=== PATIENT | female | born 1990 | race Caucasian/White ===

== ENCOUNTER → 2018-10-14 18:20 | Outpatient (CLI) | payer MEDICAID, SELFPAY ==
[2018-10-14 16:00] VITALS: BMI 27.1
[2018-10-14 18:11] LABS: Absolute Lymphocyte Count 1.99 X10^3/ul (0.83-4.51); Absolute Neutrophil Count 5.9 X10^3/uL (2.0-7.7); Basophil# 0.02 X10^3/uL; Basophil% 0.2 % (0-1); Eosinophil# 0.05 X10^3/uL; Eosinophils% 0.6 % (0-5); Hematocrit 41.4 % (37-47); Hemoglobin 13.9 g/dl (12.0-15.0); Lymphocyte # 1.99 X10^3/ul (4.0); Lymphocyte % 22.6 % (19-41); Mean Corp Hgb Conc 33.6 g/gl (32-36); Mean Corpuscular Hgb 28.5 pg (27.0-32.0); Mean Platelet Vol. 10.2 fl (6.2-12.0); Monocyte# 0.81 X10^3/uL; Monocyte% 9.2 % (0-10); Neutrophil # 5.92 X10^3/uL (2.7-7.7); Neutrophil % 67.1 % (47-70); Platelet Count 202 K/mm3 (150-450); RBC Distribution Width CV 12.4 % (11.6-14.6); RBC Distribution Width SD 38.1 fl (35.1-43.9); Red Blood Count 4.87 M/mm3 (4.2-5.4); White Blood Count 8.8 K/mm3 (4.4-11.0)
[2018-10-14 18:14] LABS: POSITIVE COUNT NO; POSITIVE DIFFERENTIAL NO; POSITIVE MORPHOLOGY NO
[2018-10-14 19:21] LABS: HIV - WCH Non-Reactive (Nonreactive); Rubella IgG > 500.0 IU/mL
[2018-10-14 20:04] LABS: Chlamydia Trachomatis by PCR Negative (Negative); Neisserai gonorrhoeae by PCR Negative (Negative); Probe Check PASS; Sample Adequacy Control PASS; Specimen Processing Control PASS
[2018-10-15 01:32] LABS: Rapid Plasmin Reagin (RPR) NONREACTIVE (NONREACTIVE)
[2018-10-18 11:40] LABS: HEPATITIS B SURFACE AG Negative (Negative)
== END ==
PROVIDERS: Referring Provider Obstetrics & Gynecology; Visit Provider Obstetrics & Gynecology
DX: Z31.430 Encounter of female for testing for genetic disease carrier status for procreative management (principal)
CPT/HCPCS: 85025; 86592; 86703; 86762; 86850; 86900; 87086; 87340; 87491; 87591

== ENCOUNTER → 2018-11-12 16:30 | Outpatient (CLI) | payer MEDICAID, SELFPAY ==
[2018-11-12 15:47] VITALS: BMI 27.1
[2018-11-12 19:43] LABS: Chlamydia Trachomatis by PCR Negative (Negative); Neisserai gonorrhoeae by PCR Negative (Negative); Probe Check PASS; Sample Adequacy Control PASS; Specimen Processing Control PASS
== END ==
PROVIDERS: Referring Provider Obstetrics & Gynecology; Visit Provider Obstetrics & Gynecology
DX: O09.90 Supervision of high risk pregnancy, unspecified, unspecified trimester (principal); Z3A.00 Weeks of gestation of pregnancy not specified
CPT/HCPCS: 87491; 87591

== ENCOUNTER → 2018-11-15 | Outpatient (CLI) | payer MEDICAID, SELFPAY ==
[2018-11-12 15:47] VITALS: BMI 27.1
== END | disposition home or self-care (01) ==
LOC: LAB 14:57
PROVIDERS: Referring Provider Obstetrics & Gynecology; Visit Provider Obstetrics & Gynecology
DX: Z34.81 Encounter for supervision of other normal pregnancy, first trimester (principal)
CPT/HCPCS: 36415

== ENCOUNTER → 2019-03-01 | Outpatient (CLI) | payer MEDICAID, SELFPAY ==
[2019-02-01 14:33] VITALS: BMI 27.1
[2019-03-01 09:41] LABS: Absolute Lymphocyte Count 1.64 X10^3/uL (0.83-4.51); Absolute Neutrophil Count 6.3 X10^3/uL (2.0-7.7); Basophil# 0.02 X10^3/uL; Basophil% 0.2 % (0-1); Eosinophil# 0.04 X10^3/uL; Eosinophils% 0.5 % (0-5); Hematocrit 35.5 % (37-47); Hemoglobin 11.9 g/dL (12.0-15.0); Lymphocyte # 1.64 X10^3/ul (4.0); Lymphocyte % 18.9 % (19-41); Mean Corp Hgb Conc 33.5 g/dL (32-36); Mean Corpuscular Hgb 29.5 pg (27.0-32.0); Mean Corpuscular Volume 87.9 fL (81-99); Mean Platelet Vol. 10.1 fl (6.2-12.0); Monocyte# 0.55 X10^3/uL; Monocyte% 6.3 % (0-10); NRBC Flagged by Analyzer 0 % (0-5); Neutrophil # 6.26 X10^3/uL (2.7-7.7); Neutrophil % 72.1 % (47-70); Platelet Count 169 K/mm3 (150-450); RBC Distribution Width CV 12.3 % (11.6-14.6); RBC Distribution Width SD 39.8 fl (35.1-43.9); Red Blood Count 4.04 M/mm3 (4.2-5.4); White Blood Count 8.7 K/mm3 (4.4-11.0)
[2019-03-01 09:53] LABS: Glucose Challenge Gest 1H 50g 104 mg/dL (70-140)
== END | disposition home or self-care (01) ==
LOC: PAVLAB 09:15
PROVIDERS: Referring Provider Obstetrics & Gynecology; Visit Provider Obstetrics & Gynecology
DX: Z34.90 Encounter for supervision of normal pregnancy, unspecified, unspecified trimester (principal)
CPT/HCPCS: 36415; 82950; 85025

== ENCOUNTER → 2019-04-28 | Outpatient (CLI) | payer MEDICAID, SELFPAY ==
[2019-04-20 09:44] VITALS: BMI 30.8
--- NOTE | 2019-04-28 08:58 | US_ITS ---
STUDY: SECOND AND THIRD TRIMESTER OBSTETRICAL ULTRASOUND REASON FOR EXAM: Female, 28 years old small for dates. LMP not provided. Established gestational age 35 weeks 4 days, established due date is 05/29/2019. TECHNIQUE: Transabdominal ultrasound. TECHNICAL QUALITY: Adequate. PRIOR ULTRASOUND: None. FINDINGS: There is a single intrauterine fetus. The fetus is in a cephalic presentation. There is demonstrated cardiac activity with a heart rate of 143 bpm. There is a normal amniotic fluid volume. The largest amniotic fluid pocket measures 4.6 cm. The amniotic fluid index (PILY) is 11.8 cm. The placenta is posterior, no evidence of previa or abruption. There are Grade 2 placental changes. The cervix was not visualized. Neither maternal adnexal region was well visualized. BIOMETRY: BPD: 8.55: 34 weeks, 3 days HC: 31.56: 35 weeks, 3 days AC: 31.03: 34 weeks, 6 days FL: 6.63: 34 weeks, 0 days FL/BPD: 77.5% FL/AC: 21.4% HC/AC: 1.02 age by current US: 34 weeks, 4 days, PRIYA 06/05/2019. US/OB Limited With Biometrics IMPRESSION: Single fetus in cephalic presentation with no acute findings. age based on this ultrasound 34 weeks 4 days. Electronically Signed: Jovanny Flores, at 20:49 EDT Tel , Service support ,
== END | disposition home or self-care (01) ==
LOC: OPUS 08:57
PROVIDERS: Referring Provider Obstetrics & Gynecology; Visit Provider Obstetrics & Gynecology
DX: O26.843 Uterine size-date discrepancy, third trimester (principal); Z3A.00 Weeks of gestation of pregnancy not specified
CPT/HCPCS: 76816

== ENCOUNTER → 2019-05-03 | Outpatient (CLI) | payer MEDICAID, SELFPAY ==
[2019-05-03 09:39] VITALS: BMI 30.8
== END | disposition home or self-care (01) ==
LOC: LABSPEC 18:14
PROVIDERS: Visit Provider Obstetrics & Gynecology
DX: Z34.93 Encounter for supervision of normal pregnancy, unspecified, third trimester (principal); Z3A.36 36 weeks gestation of pregnancy
CPT/HCPCS: 87081

== ENCOUNTER 2019-05-27 02:52 | Inpatient (IN) | payer MEDICAID, SELFPAY ==
[2019-05-23 08:32] VITALS: BMI 30.8
--- NOTE | 2019-05-27 | PLAC_PTH ---
PATIENT: THAIS MADDEN LOC: WP U#:[id number] AGE/SX: 28/F ROOM: WP010 RE05/27/[address]: Dr. Fawad Saldana MD : 1990 BED: 1 DIS: 05/29/2019 SPEC #: [id number] RECD: 05/27/19 18:12 STATUS: JOHN RERobert #: [id number] VERÓNICA: 05/27/19 00:[address]: Fawad Saldana DEPT: SURGICAL PATHOLOGY RECD BY: Michelle Loomis ENTERED: 05/29/19 17:13 SP TYPE: PLACENTA OTHR DR: Dr. Kristin Yu, DO Tissues: Placenta, NOS Procedures: Surgery Specimen Level V HEADER OPERATION: Vaginal delivery PRE-OP DIAGNOSIS: Robert of temperature before delivery, meconium stained membranes TISSUE SUBMITTED: Placenta MICROSCOPIC DIAGNOSIS Placenta: Placental disc - third trimester placenta (508 gm). - Acute vasculitis of subamnionic blood vessels. - Increased calcification of maternal surface. Membranes - marked acute chorioamnionitis. Umbilical cord - three blood vessels and marked acute funisitis. OMER:maikel 05/31/19 MICROSCOPIC DESCRIPTION Slides are reviewed. GROSS DESCRIPTION SPECIMEN: PLACENTA / CLINICAL INFORMATION: A. Weight: 2.837 kg B. Gestational Age: 39 weeks C. Sex: Female PLACENTAL WEIGHT (POST FIXATION): 508 gm PLACENTAL DIMENSIONS: 18 x 18 x 3 cm PLACENTAL SHAPE: Usual ovoid PLACENTAL WEIGHT FOR GESTATIONAL AGE: Within 10-99th percentile MEMBRANES - Present A. Insertion: Marginal B. Site of rupture from edge: 3 cm from edge of placental disc C. Color of membrane: Key-izaguirre D. Abnormalities: None UMBILICAL CORD - Present A. Color: Key-izaguirre B. Insertion: Paracentral C. Length: 24 cm D. Diameter: 1 cm E. Number of vessels: Three F. Abnormalities: None PLACENTAL DISC - Present A. Color of surface: Key-izaguirre B. surface abnormalities: None C. Maternal cotyledons: Intact with minimal tears. Maternal surface shows increased amount of speckled calcification. D. Attached retro placental clot: No clot E. Cut surface: Dark red and spongy F. Lesions: None G. Separate clot: Absent SECTIONS SUBMITTED: 1. Membrane roll 2. Cord, maternal end 3. Cord, end 4. Placental disc, and maternal surfaces 5. Placental disc, and maternal surfaces 6. Placental disc, and maternal surfaces SJ:maikel 05/30/19 TC:2 CPT: 53154
[2019-05-27 02:40] VITALS: BMI 30.1
[2019-05-27 03:03] LABS: ROM Internal Control Test YES-OK TO RESULT pt. (Internal QC); ROM Patient Test Negative (Negative); Record Kit Lot#, ROM+ J8255
[2019-05-27] MEDS: Lactated Ringers 1,000 ML 50 ML IV (03:15)
[2019-05-27 03:32] LABS: Absolute Lymphocyte Count 1.54 X10^3/uL (0.83-4.51); Absolute Neutrophil Count 15.3 X10^3/uL (2.0-7.7); Basophil# 0.05 X10^3/uL; Basophil% 0.3 % (0-1); Eosinophil# 0.03 X10^3/uL; Eosinophils% 0.2 % (0-5); Hematocrit 38.7 % (37-47); Hemoglobin 13.2 g/dL (12.0-15.0); Lymphocyte # 1.54 X10^3/ul (4.0); Lymphocyte % 8.4 % (19-41); Mean Corp Hgb Conc 34.1 g/dL (32-36); Mean Corpuscular Volume 85.1 fL (81-99); Monocyte# 1.15 X10^3/uL; Monocyte% 6.3 % (0-10); NRBC Flagged by Analyzer 0 % (0-5); Neutrophil # 15.29 X10^3/uL (2.7-7.7); Neutrophil % 83.6 % (47-70); POSITIVE COUNT YES; Platelet Count 158 K/mm3 (150-450); RBC Distribution Width CV 12.9 % (11.6-14.6); RBC Distribution Width SD 39.6 fl (35.1-43.9); Red Blood Count 4.55 M/mm3 (4.2-5.4); White Blood Count 18.3 K/mm3 (4.4-11.0)
[2019-05-27] MEDS: Lactated Ringers 500 ML 999 ML IV ×2 (03:52→08:58)
[2019-05-27 04:08] LABS: Differential Indicated SCAN CRITERIA MET
[2019-05-27] MEDS: Nalbuphine 10 MG/ML Ampul IV ×2 (04:53→07:57)
[2019-05-27] MEDS: 0.9% Saline Lock 10 ML Syringe IV ×2 (04:54→20:36)
[2019-05-27] MEDS: fentaNYL-bupivacaine (epidural) 100 ML BAG EPIDURAL ×2 (09:48→14:52)
--- NOTE | 2019-05-27 10:39 | HP.PCM_ITS ---
History and Physical Date of Ad[place]: 05[place]27/[place] [facility] [facility] [place] AND PHYSICAL (05/27/2019) History of This : This is a 28-year-old 1 para 0 patient who presents in active labor 39+ weeks gestation. care unremarkable except for a prior LEEP procedure to her cervix. Patient also has a history of bartholinitis. She would like an epidural in labor and for dad to cut the cord. She does plan to breast-feed. OB Physician: eKila Copeland [place]'s Physician: ...................................................................... : 1990 Age: 28 Final PRIYA: 06/05/2019 PARITY: OB PROBLEM LIST: History of LEEP procedure ALLERGIES: NKDA MEDICATIONS: vitamins SOCIAL HISTORY: Smoking -never Alcohol Use - never Diet - no special diet Exercise - active Job Description -manages rental properties Illicit Drug Use - None REVIEW OF SYSTEMS: GENERAL - Denies fever, or chills SKIN - Denies rash, new skin lesions, or change in moles EYES - Denies blurred vision, or change in visual acuity EARS - Denies ear pain, or difficulty hearing NOSE - Denies nasal congestion, discharge, or bleeding MOUTH - Denies sore throat, or difficulty swallowing NECK - Denies pain or swelling RESPIRATORY - Denies shortness of breath, cough, wheezing CARDIOVASCULAR - Denies palpitations, chest pain, orthopnea, PND, peripheral edema, syncope or claudication GASTROINTESTINAL - Denies nausea, vomiting, diarrhea, constipation, Denies abdominal pain, melena and or bright red blood GENITOURINARY - Denies dysuria, frequency of urination, urgency, or hesitancy MUSCULOSKELETAL - Denies joint or muscle pain, or back pain NEUROLOGICAL - Denies localized numbness, weakness, or tingling PSYCHIATRIC - Denies depression, anxiety, substance abuse or suicide attempts ENDOCRINE - Denies heat or cold intolerance, weight loss or gain, increasing thirst HEMATO-IMMUNOLOGIC - Denies easy bruising, bleeding, oral ulcerations or recurrent infections PHYSICAL EXAMINATION General Appearance: 28 yo female in no acute distress Vital Signs: AF, VSS Heart: RRR without rubs or gallops Lungs: CTA x 2 Breasts: deferred Abdomen: gravid Pelvis: Cervix: 4 cm, rupture membrane shows moderate meconium staining Presentation: cephalic Station: -2 Fetus: Size: AGA Movement: present Heart: present Impression /Plan: 39+ week intrauterine in active labor. Anticipate spontaneous vaginal delivery. Preparations in progress for delivery.
[2019-05-27] MEDS: Oxytocin 30 units/NS 500 ml 30 UNITS/500 ML IV.SOLN IV (11:00)
[2019-05-27] MEDS: Lactated Ringers 1,000 ML 200 ML IV (13:44)
[2019-05-27] MEDS: Oxytocin 30 units/NS 500 ml 30 UNITS/500 ML IV.SOLN 334 UNITS IV (16:40)
--- NOTE | 2019-05-27 17:05 | PCM.OPRPT ---
Vaginal Delivery Maternal Presentation: Active Labor Method of Induction: Amniotomy Amniotic Membrane Rupture Type: Artificial Amniotic Fluid Description: Moderate meconium Final PRIYA: 06/05/19 Gestational age: 38 Weeks and 5 Days [place] doctor who attended delivery (if requested by OB): Luciana Hope - Moderate MSF; Maternal fever Date of Procedure: 05/27/19 Pre-Operative Diagnosis: IUP Post-Operative Diagnosis: IUP Surgery/ Procedure Performed: Spontaneous Vaginal Delivery Type of Anesthesia: Epidural Description of Procedure: Spontaneous vaginal delivery of a viable female with Apgars of 8/9 from an occiput anterior presentation with clear amniotic fluid and normal three-vessel placenta. Cord around the neck x1 tight. No episiotomy or laceration. Sponges okay. Delivery physician: Fawad Saldana MD. Presentation: Vertex Placental Delivery Description: Spontaneous Placenta Disposition: Sent to Pathology Cord Vessel Description: 3 Vessels Cord Gases drawn per routine: ABG, VBG Cord Entanglement: Around neck x 1, tight Drain: [place] to straight drain Estimated Blood Loss: 250 cc Infant A gender: Female (1 minute): 8 (5 minute): 9 Episiotomy Description: None Laceration: None Medications given after delivery: IV Pitocin Complications: None
--- NOTE | 2019-05-27 17:08 | DCINST_ITS ---
Discharge Diet: No Restrictions Discharge Activity: May Shower, May Take a Tub Bath May resume sexual activity in: 4-6 weeks Additional Activity Instructions:: Nothing in the vagina for 4-6 weeks. You may return to work/school in 6 weeks. Call your doctor if you observe: Fever of 101 or Higher, Inability to urinate, Inability to have a bowel movement, Using more than one pad per hour Additional Instructions: If you experience any of the following, contact your healthcare provider. * Bleeding that soaks a pad every hour for 2 hours * Unrelieved incision or abdominal pain * Swelling, redness, discharge or bleeding from your incision or episiotomy site * Your incision begins to separate * Problems urinating (including inability to urinate or burning while urinating). * Visual changes * Severe headache * Flu-like symptoms * Pain or redness in one of both of your breasts * Pain, warmth, tenderness or swelling in your legs, especially the calf area * Frequent nausea and vomiting * Symptoms of depression or anxiety If you experience any of the following, call 911 or go to the nearest Emergency Room. * Chest pain * Problems breathing * Seizure activity * Partial or complete paralysis of a body part, slurred speech, weakness or drooping of the face, or a sudden inability to walk or hold your balance Allergies/Adverse Reactions: Allergies No Known Allergies Allergy (Verified 05/27/19 03:11) Medications to take at Discharge vitamin#30 30 mg iron-10 mg iron-folic acid 1 mg-omg3 capsule 1 cap PO DAILY cap 10/14/18 Please Follow Up With: Bree Copeland MD - [phone] When: Call to make an appointment with your doctor in 6 weeks. Primary Care Physician: Kristin Yu DO [Primary Care Provider] - Test Results: Test results from this visit will be discussed in further detail at your follow- up appointment, if applicable.
--- NOTE | 2019-05-27 17:08 | PCM.DCVAG ---
Discharge Diet: No Restrictions Discharge Activity: May Shower, May Take a Tub Bath May resume sexual activity in: 4-6 weeks Additional Activity Instructions:: Nothing in the vagina for 4-6 weeks. You may return to work/school in 6 weeks. Call your doctor if you observe: Fever of 101 or Higher, Inability to urinate, Inability to have a bowel movement, Using more than one pad per hour Additional Instructions: If you experience any of the following, contact your healthcare provider. Bleeding that soaks a pad every hour for 2 hours Unrelieved incision or abdominal pain Swelling, redness, discharge or bleeding from your incision or episiotomy site Your incision begins to separate Problems urinating (including inability to urinate or burning while urinating). Visual changes Severe headache Flu-like symptoms Pain or redness in one of both of your breasts Pain, warmth, tenderness or swelling in your legs, especially the calf area Frequent nausea and vomiting Symptoms of depression or anxiety If you experience any of the following, call 911 or go to the nearest Emergency Room. Chest pain Problems breathing Seizure activity Partial or complete paralysis of a body part, slurred speech, weakness or drooping of the face, or a sudden inability to walk or hold your balance Allergies/Adverse Reactions: Allergies No Known Allergies Allergy (Verified 05/27/19 03:11) Medications to take at Discharge vitamin#30 30 mg iron-10 mg iron-folic acid 1 mg-omg3 capsule 1 cap PO DAILY cap 10/14/18 Please Follow Up With: Bree Copeland MD - [phone] When: Call to make an appointment with your doctor in 6 weeks. Primary Care Physician: Kristin Yu DO [Primary Care Provider] - Test Results: Test results from this visit will be discussed in further detail at your follow-up appointment, if applicable.
--- NOTE | 2019-05-27 17:31 | PN.OBGYN_ITS ---
Subjective: Patient with continued temperature elevation greater than 101 ?F more than 30 minutes after delivery. Tylenol given. Will start ampicillin and gentamicin for presumed chorioamnionitis. - Physical Exam Weight: 181 lb Body Mass Index (BMI) 30.1 Intake and Output for Last 24 Hours 05/25/19 05/26/19 05/27/19 23:59 23:59 23:59 Intake Total 3000.00 / 3000.00 Output Total 1300 / 1300 Balance 1700.00 / 1700.00 Laboratory Tests Past 24 Hrs 05/27/19 05/27/19 05/27/19 02:30 03:15 03:15 WBC 18.3 H RBC 4.55 Hgb 13.2 Hct 38.7 MCV 85.1 MCH 29.0 MCHC 34.1 RDW Std Deviation 39.6 RDW Coeff of Karthik 12.9 Plt Count 158 MPV 12.0 Immature Gran % (Auto) 1.200 H Neut % (Auto) 83.6 H Lymph % (Auto) 8.4 L [place] % (Auto) 6.3 Eos % (Auto) 0.2 Baso % (Auto) 0.3 Absolute Neuts (auto) 15.3 H Absolute Lymphs (auto) 1.54 Nucleated RBC % 0 Differential Comment Vag Amniotic Fld Detect Negative Blood Type A POSITIVE Antibody Screen NEGATIVE Medical Necessity - Tobacco Use Smoking Status: Never smoker Assessment/Plan All Active Problems (Last Updated 05/27/19 @ 17:09 by Fawad Saldana MD) Acute appendicitis (Resolved) Low lying placenta nos or without hemorrhage, second trimester (Resolved) Uterine size-date discrepancy, third trimester (Resolved)
[2019-05-27] MEDS: Acetaminophen 500 MG Tablet 1000 MG PO (17:51)
[2019-05-27 20:09] VITALS: BP 116/65; PULSE 93; RESP 20; TEMP 36.6; O2SAT 96
[2019-05-27] MEDS: Ibuprofen 600 MG Tablet PO (20:48)
[2019-05-28 00:21] VITALS: BP 116/58; PULSE 79; RESP 18; TEMP 36.2; O2SAT 95
[2019-05-28] MEDS: 0.9% Saline Lock 10 ML Syringe IV ×5 (00:30→06:47)
[2019-05-28 03:54] VITALS: BP 103/48; PULSE 78; RESP 18; TEMP 36.7
[2019-05-28 05:18] LABS: Hematocrit 33.9 % (37-47); Hemoglobin 11.3 g/dL (12.0-15.0); Mean Corp Hgb Conc 33.3 g/dL (32-36); Mean Corpuscular Hgb 28.7 pg (27.0-32.0); Mean Platelet Vol. 10.8 fl (6.2-12.0); Platelet Count 136 K/mm3 (150-450); RBC Distribution Width SD 40.6 fl (35.1-43.9); Red Blood Count 3.94 M/mm3 (4.2-5.4)
[2019-05-28 10:00] VITALS: BP 117/67; PULSE 75; RESP 18; TEMP 36.3
--- NOTE | 2019-05-28 11:46 | PCM.PN.OB ---
Subjective: Pain well controlled, tolerating diet, passing flatus, well Objective: AVSS Breasts filling, nipples atraumatic Fundus firm, midline, u/1, lochia small - Physical Exam General: Alert, Oriented x3, Cooperative, No apparent distress HEENT: PERRLA, EOMI Oral: Moist Mucosa Neck: Supple Lungs: Clear to auscultation, Normal air movement Cardiovascular: Regular rate, Regular Rhythm Abdomen: Bowel Sounds Present, Soft, Non Tender, Non-Distended Extremities: Capillary Refill Less than 3 Seconds, No Calf Tenderness Musculoskeletal: No Tenderness to Palpation of Joints or Extremities Neurological: Cranial nerves II-XII grossly intact, Deep Tendon Reflexes 2+/4 and Symmetrical Psych/Mental Status: Normal Affect, Appropriate, Alert and oriented to time, place, person, mood and affect Vital Signs Temp Pulse Resp BP Pulse Ox 98.1 F 78 18 103/48 L 95 05/28/19 03:54 05/28/19 03:54 05/28/19 03:54 05/28/19 03:54 05/28/19 00:21 Oxygen Delivery Method Room Air Weight: 181 lb Body Mass Index (BMI) 30.1 Intake and Output for Last 24 Hours 05/26/19 05/27/19 05/28/19 23:59 23:59 23:59 Intake Total 4663.50 / 4663.50 253 / 253 Output Total 1475 / 1475 1650 / 1650 Balance 3188.50 / 3188.50 -1397 / -1397 Laboratory Tests Past 24 Hrs 05/28/19 05:15 WBC 22.0 H RBC 3.94 L Hgb 11.3 L Hct 33.9 L MCV 86.0 MCH 28.7 MCHC 33.3 RDW Std Deviation 40.6 RDW Coeff of Karthik 13.0 Plt Count 136 L MPV 10.8 Medical Necessity - Tobacco Use Smoking Status: Never smoker Assessment/Plan All Active Problems (Last Updated 05/27/19 @ 17:09 by Fawad Saldana MD) Acute appendicitis (Resolved) Low lying placenta nos or without hemorrhage, second trimester (Resolved) Uterine size-date discrepancy, third trimester (Resolved) Assessment: 28yo G1 mow P1 at 39w5d by L=12w1d US Group B negative Chorioamnionitis Normal involution Afebrile x 24 hours Plan: Discharge teaching begun Discontinue antibiotics Continue routine care
[2019-05-28 14:00] VITALS: BP 111/69; PULSE 73; RESP 16; TEMP 36.4
[2019-05-28] MEDS: Ibuprofen 600 MG Tablet PO (19:19)
[2019-05-28 19:36] VITALS: BP 96/60; PULSE 73; RESP 16; TEMP 36.6; O2SAT 94
[2019-05-29 01:23] VITALS: BP 110/68; PULSE 76; RESP 18; TEMP 36.9; O2SAT 96
[2019-05-29 06:35] LABS: Pathology Specimen OB SEE PATHOLOGY REPORT
[2019-05-29 09:05] VITALS: BP 114/68; PULSE 84; RESP 14; TEMP 36.4
--- NOTE | 2019-05-29 09:18 | PCM.PN.OB ---
Subjective: doing well no complaints pain controlled no CP SOB N V ambulating well tolerating po lochia moderate, going well - Physical Exam General: Alert, Oriented x3 Abdomen: Soft, Non Tender, Non-Distended, - - FF below U Vital Signs Temp Pulse Resp BP Pulse Ox 97.6 F L 84 14 114/68 96 05/29/19 09:05 05/29/19 09:05 05/29/19 09:05 05/29/19 09:05 05/29/19 01:23 Oxygen Delivery Method Room Air Weight: 181 lb Body Mass Index (BMI) 30.1 Intake and Output for Last 24 Hours 05/27/19 05/28/19 05/29/19 23:59 23:59 23:59 Intake Total 4663.50 / 4663.50 253 / 253 Output Total 1475 / 1475 2049 / 2049 Balance 3188.50 / 3188.50 -1797 / -1797 Medical Necessity - Tobacco Use Smoking Status: Never smoker Assessment/Plan All Active Problems (Last Updated 05/27/19 @ 17:09 by Fawad Saldana MD) Acute appendicitis (Resolved) Low lying placenta nos or without hemorrhage, second trimester (Resolved) Uterine size-date discrepancy, third trimester (Resolved) s/p PPD # 1 1. routine post delivery care 2. breast feeding- support given 3. rh positive 4. rubella immune 5. HOme today
== END 2019-05-29 10:05 | disposition home or self-care (01) | DRG 560 ==
LOC: WPOUT 02:59
PROVIDERS: Admitting Provider Obstetrics & Gynecology; Referring Provider Obstetrics & Gynecology; Visit Provider Obstetrics & Gynecology
DX: O77.0 Labor and delivery complicated by meconium in amniotic fluid (principal); Z3A.39 39 weeks gestation of pregnancy; Z37.0 Single live birth
CPT/HCPCS: 59025; 59050; 84112; 85025; 85027; 86850; 86900; 86901; 88307; 99218; J7120; A4216; G0378

== ENCOUNTER → 2019-07-11 15:44 | Outpatient (CLI) | payer MEDICAID, SELFPAY ==
[2019-07-11 13:49] VITALS: BMI 30.1
[2019-07-14 11:31] LABS: HPV Reflexed? NOT INDICATED
== END ==
PROVIDERS: Referring Provider Obstetrics & Gynecology; Visit Provider Obstetrics & Gynecology
DX: Z12.4 Encounter for screening for malignant neoplasm of cervix (principal)
CPT/HCPCS: 88175; G0145

== ENCOUNTER → 2019-09-23 | Outpatient (CLI) | payer MEDICAID, SELFPAY ==
[2019-09-23 10:35] VITALS: BMI 28.3
[2019-09-23 13:04] LABS: Amphetamine Urine VISTA NEGATIVE (<1000 ng/mL); Barbiturate Urine VISTA NEGATIVE (< 200 ng/mL); Benzodiazepine Urine VISTA NEGATIVE (< 200 ng/mL); Cocaine Urine VISTA NEGATIVE (< 300 ng/mL); Ecstacy Urine VISTA NEGATIVE (< 500 ng/mL); Methadone Urine VISTA NEGATIVE (< 300 ng/mL); PCP Urine VISTA NEGATIVE (< 25 ng/mL); THC Urine VISTA NEGATIVE (< 50 ng/mL); Vista UDS pH Range 5
== END | disposition home or self-care (01) ==
LOC: BIMLAB 11:00
PROVIDERS: PCP Internal Medicine; Referring Provider Internal Medicine; Visit Provider Internal Medicine
DX: F90.9 Attention-deficit hyperactivity disorder, unspecified type (principal)
CPT/HCPCS: 80307

== ENCOUNTER → 2019-09-27 | Outpatient (CLI) | payer MEDICAID, SELFPAY ==
[2019-09-23 10:35] VITALS: BMI 28.3
--- NOTE | 2019-09-27 14:00 | RAD_ITS ---
STUDY: X-RAY - PELVIS AND RIGHT HIP REASON FOR EXAM: Female, 29 years old. Pain since child 4 months ago TECHNIQUE: 3 views of the pelvis and hip. COMPARISON: None. FINDINGS: There is a non-specific bowel gas pattern. Normal visualized soft tissue structures. Normal bilateral iliac wings, sacroiliac joints and visualized sacrum. Normal bilateral superior and inferior pubic rami. Normal pubic symphysis. Normal bilateral ischial tuberosities. Normal visualized femoral head. Normal acetabulum. Normal hip joint. RAD/HIP, UNI W/ Pelvis 2-3 Views IMPRESSION: Normal x-ray examination of the pelvis and hip. Electronically Signed: Paola Dave, at 8:02 EST Tel , Service support ,
== END | disposition home or self-care (01) ==
LOC: RAD 13:57
PROVIDERS: PCP Internal Medicine; Referring Provider Internal Medicine; Visit Provider Internal Medicine
DX: M25.551 Pain in right hip (principal)
CPT/HCPCS: 73502

== ENCOUNTER → 2020-01-27 09:57 | Outpatient (CLI) | payer MEDICAID, SELFPAY ==
[2019-12-19 13:11] VITALS: BMI 28.3
--- NOTE | 2020-01-27 10:05 | RAD_ITS ---
CLINICAL HISTORY: Female, 29 years old. Chronic right hip pain. PROCEDURE: ARTHROGRAM - RIGHT HIP CONSENT: The procedure as well as benefits and possible complications including bleeding and infection were explained to the patient. Informed consent was obtained. FLUOROSCOPY TIME (if supplied): (30 seconds) minutes/seconds. Single image was obtained. Injection Information: 10 cc of dilute Magnevist. Number of images obtained: 1 TECHNIQUE: (All elements of maximal sterile barrier technique followed, including US elements as applicable) The patient was in the supine position. The overlying skin was prepped and draped in usual sterile fashion. Following local anesthetic complication and under direct fluoroscopic guidance, a 22-gauge spinal needle was placed into the hip joint. 2 cc of Isovue-300 was injected for confirmation. Following this, 10 cc of dilute Magnevist was injected. RAD/Arthrogram Hip IMPRESSION: Successful right hip arthrogram for MRI examination. Electronically Signed: Be Gonzales, at 11:10 EDT , Service support ,
--- NOTE | 2020-01-27 10:45 | MRI_ITS ---
STUDY: MR RIGHT HIP ARTHROGRAPHY REASON FOR EXAM: Pain and instability for 8 months. TECHNIQUE: Standardized fat and water weighted pulse sequences were obtained in all 3 orthogonal planes after intra-articular instillation of 0.8 mL of dilute Dotarem. COMPARISON: Radiographs 09/27/2019. FINDINGS: Normal hip joint without articular joint space narrowing. Normal acetabulum. There is a tear of the right superior labrum (T1 coronal images 11-13) and a small tear of the anterosuperior labrum (GURPREET image 9). There is a femoral cam lesion (T1 coronal image 10). Normal femoral neck and intratrochanteric region. Normal gluteus minimus, medius and iliopsoas tendons and distal insertions. There is no trochanteric, iliopsoas or iliopectineal bursitis. Normal superior and inferior pubic rami. Normal pubic symphysis. Normal ischial tuberosity. Normal origin of the hamstring tendons. Normal visualized soft tissue structures of the pelvis. MRI/Lower Ext/Jt Only/W Contrast IMPRESSION: Labral tear. 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 Electronically Signed: Eduardo Marin MD at 13:00 EDT Tel , Service support ,
== END ==
PROVIDERS: PCP Internal Medicine; Referring Provider Physician Assistant; Visit Provider Physician Assistant
DX: M25.551 Pain in right hip (principal); G89.29 Other chronic pain
CPT/HCPCS: 27093; 73525; 73722; A9575; Q9967

== ENCOUNTER → 2020-03-19 09:51 | Outpatient (CLI) | payer MEDICAID, SELFPAY ==
[2020-03-19 09:36] VITALS: BMI 28.3
[2020-03-19 12:34] LABS: Absolute Lymphocyte Count 1.87 X10^3/uL (0.83-4.51); Absolute Neutrophil Count 3.2 X10^3/uL (2.0-7.7); Basophil# 0.02 X10^3/uL; Basophil% 0.4 % (0-1); Eosinophil# 0.04 X10^3/uL; Eosinophils% 0.7 % (0-5); Hematocrit 41.6 % (37-47); Hemoglobin 13.6 g/dL (12.0-15.0); Lymphocyte # 1.87 X10^3/ul (4.0); Lymphocyte % 34.1 % (19-41); Mean Corp Hgb Conc 32.7 g/dL (32-36); Mean Corpuscular Hgb 28.2 pg (27.0-32.0); Mean Corpuscular Volume 86.1 fL (81-99); Mean Platelet Vol. 10.5 fl (6.2-12.0); Monocyte# 0.37 X10^3/uL; Monocyte% 6.7 % (0-10); NRBC Flagged by Analyzer 0 % (0-5); Neutrophil # 3.15 X10^3/uL (2.7-7.7); Neutrophil % 57.4 % (47-70); Platelet Count 208 K/mm3 (150-450); RBC Distribution Width CV 11.3 % (11.6-14.6); RBC Distribution Width SD 35.5 fl (35.1-43.9); Red Blood Count 4.83 M/mm3 (4.2-5.4); White Blood Count 5.5 K/mm3 (4.4-11.0)
[2020-03-19 12:47] LABS: AST(SGOT) 13 U/L (15-37); Alanine Aminotransfer ALT/SGPT 26 U/L (13-56); Albumin, Serum 3.8 g/dL (3.2-5.0); Alkaline Phosphatase 51 U/L (45-117); Anion Gap 7 (5-15); BUN 12 mg/dL (7-18); BUN/Creat Ratio 15.8 RATIO (10-20); Calcium,Total 8.8 mg/dL (8.5-10.1); Chloride 105 mmol/L (98-107); Creatinine, Serum 0.76 mg/dL (0.55-1.02); EST Glomerular Filtration Rate 96 mL/min (>60); Est Glom Filt Rate - Afr Amer 116 mL/min (>60); Globulin 3.7 g/dL (2.2-4.2); Glucose 87 mg/dL (74-106); Potassium 3.9 mmol/L (3.5-5.1); Protein, Total 7.5 g/dL (6.4-8.2); Sodium Level 139 mmol/L (136-145)
== END ==
PROVIDERS: PCP Internal Medicine; Referring Provider Internal Medicine; Visit Provider Internal Medicine
DX: F90.9 Attention-deficit hyperactivity disorder, unspecified type (principal)
CPT/HCPCS: 36415; 80053; 85025

== ENCOUNTER → 2020-07-23 | Outpatient (CLI) | payer MEDICAID, SELFPAY ==
[2020-07-23 14:38] VITALS: BMI 27.7
[2020-07-23 17:55] LABS: Amphetamine Urine VISTA NEGATIVE (<1000 ng/mL); Barbiturate Urine VISTA NEGATIVE (< 200 ng/mL); Benzodiazepine Urine VISTA NEGATIVE (< 200 ng/mL); Cocaine Urine VISTA NEGATIVE (< 300 ng/mL); Ecstacy Urine VISTA NEGATIVE (< 500 ng/mL); Methadone Urine VISTA NEGATIVE (< 300 ng/mL); PCP Urine VISTA NEGATIVE (< 25 ng/mL); THC Urine VISTA NEGATIVE (< 50 ng/mL); Vista UDS pH Range 6
[2020-07-26 20:07] LABS: Chlamydia By Nucleic Acid AMP Negative (Negative)
[2020-07-26 22:43] LABS: Gonococcus By Nucleic Acid AMP Negative (Negative)
== END | disposition home or self-care (01) ==
LOC: LABSPEC 16:28
PROVIDERS: PCP Internal Medicine; Referring Provider Obstetrics & Gynecology; Visit Provider Obstetrics & Gynecology
DX: O09.90 Supervision of high risk pregnancy, unspecified, unspecified trimester (principal); Z3A.00 Weeks of gestation of pregnancy not specified
CPT/HCPCS: 80307; 87086; 87088; 87491; 87591

== ENCOUNTER → 2020-08-15 13:52 | Outpatient (CLI) | payer MEDICAID, SELFPAY ==
[2020-07-23 14:38] VITALS: BMI 27.7
[2020-08-15 14:34] LABS: Absolute Lymphocyte Count 2.29 X10^3/uL (0.83-4.51); Absolute Neutrophil Count 6.5 X10^3/uL (2.0-7.7); Basophil# 0.02 X10^3/uL; Basophil% 0.2 % (0-1); Eosinophil# 0.03 X10^3/uL; Eosinophils% 0.3 % (0-5); Hematocrit 39.4 % (37-47); Hemoglobin 13.4 g/dL (12.0-15.0); Lymphocyte # 2.29 X10^3/ul (4.0); Lymphocyte % 24.3 % (19-41); Mean Corpuscular Hgb 28.3 pg (27.0-32.0); Mean Corpuscular Volume 83.3 fL (81-99); Mean Platelet Vol. 9.8 fl (6.2-12.0); Monocyte# 0.49 X10^3/uL; Monocyte% 5.2 % (0-10); NRBC Flagged by Analyzer 0 % (0-5); Neutrophil # 6.51 X10^3/uL (2.7-7.7); Neutrophil % 69.3 % (47-70); Platelet Count 199 K/mm3 (150-450); RBC Distribution Width CV 11.9 % (11.6-14.6); Red Blood Count 4.73 M/mm3 (4.2-5.4); White Blood Count 9.4 K/mm3 (4.4-11.0)
[2020-08-16 01:36] LABS: Rapid Plasmin Reagin (RPR) NONREACTIVE (NONREACTIVE)
[2020-08-16 11:18] LABS: HIV - WCH Non-Reactive (Nonreactive); Hepatitis B Surface Antigen Non-Reactive (Nonreactive); Hepatitis C Antibody Non-Reactive (Nonreactive); Rubella IgG Reactive (Nonreactive)
== END ==
PROVIDERS: PCP Internal Medicine; Referring Provider Obstetrics & Gynecology; Visit Provider Obstetrics & Gynecology
DX: O09.90 Supervision of high risk pregnancy, unspecified, unspecified trimester (principal); Z31.430 Encounter of female for testing for genetic disease carrier status for procreative management; Z3A.00 Weeks of gestation of pregnancy not specified
CPT/HCPCS: 36415; 85025; 86592; 86703; 86762; 86803; 86850; 86900; 86901; 87340

== ENCOUNTER → 2020-11-20 16:43 | Outpatient (CLI) | payer MEDICAID, SELFPAY ==
[2020-11-15 13:26] VITALS: BMI 29.2
[2020-11-23 17:19] LABS: CMV Acute Antibody IgM < 30.0 AU/mL (0.0-29.9); CMV Antibody IgG < 0.60 U/mL (0.00-0.59); PARVOVIRUS B19 IGG 6.2 index (0.0-0.8); PARVOVIRUS B19 IGM 0.1 index (0.0-0.8)
== END ==
LOC: LAB.FUTURE 17:07 → LAB 11-21 05:52
PROVIDERS: PCP Internal Medicine
DX: O35.9XX0 Maternal care for (suspected) fetal abnormality and damage, unspecified, not applicable or unspecified (principal); Z3A.00 Weeks of gestation of pregnancy not specified
CPT/HCPCS: 36415; 86644; 86645; 86747

== ENCOUNTER → 2020-12-14 12:35 | Outpatient (CLI) | payer MEDICAID, SELFPAY ==
[2020-11-15 13:26] VITALS: BMI 29.2
[2020-12-14 13:45] LABS: Absolute Neutrophil Count 7.3 X10^3/uL (2.0-7.7); Basophil# 0.03 X10^3/uL; Basophil% 0.3 % (0-1); Eosinophil# 0.05 X10^3/uL; Eosinophils% 0.5 % (0-5); Hemoglobin 11.5 g/dL (12.0-15.0); Lymphocyte % 17.2 % (19-41); Mean Corp Hgb Conc 32.9 g/dL (32-36); Mean Corpuscular Volume 88.2 fL (81-99); Mean Platelet Vol. 10.4 fl (6.2-12.0); Monocyte# 0.59 X10^3/uL; NRBC Flagged by Analyzer 0 % (0-5); Neutrophil # 7.34 X10^3/uL (2.7-7.7); Neutrophil % 74.3 % (47-70); Platelet Count 186 K/mm3 (150-450); RBC Distribution Width CV 12.5 % (11.6-14.6); RBC Distribution Width SD 40.5 fl (35.1-43.9); Red Blood Count 3.97 M/mm3 (4.2-5.4); White Blood Count 9.9 K/mm3 (4.4-11.0)
[2020-12-14 14:05] LABS: Glucose Challenge Gest 1H 50g 103 mg/dL (70-140)
== END ==
PROVIDERS: PCP Internal Medicine; Referring Provider Obstetrics & Gynecology; Visit Provider Obstetrics & Gynecology
DX: Z34.90 Encounter for supervision of normal pregnancy, unspecified, unspecified trimester (principal)
CPT/HCPCS: 36415; 82950; 85025

== ENCOUNTER → 2021-02-14 | Outpatient (CLI) | payer MEDICAID, SELFPAY ==
[2021-01-11 10:39] VITALS: BMI 30.1
[2021-02-14 17:38] LABS: Group B Strep DNA By PCR Negative (Negative)
[2021-02-14 17:39] LABS: Internal Control PASS; Probe Check PASS; Specimen Processing Control PASS
== END | disposition home or self-care (01) ==
LOC: LABSPEC 14:33
PROVIDERS: PCP Internal Medicine
DX: Z36.85 Encounter for antenatal screening for Streptococcus B (principal)
CPT/HCPCS: 87081; 87653

== ENCOUNTER → 2021-12-13 | Outpatient (CLI) | payer MEDICAID, SELFPAY ==
[2021-12-13 16:50] LABS: Absolute Lymphocyte Count 2.03 X10^3/uL (0.83-4.51); Absolute Neutrophil Count 3.9 X10^3/uL (2.0-7.7); Basophil# 0.04 X10^3/uL; Basophil% 0.6 % (0-1); Eosinophil# 0.06 X10^3/uL; Eosinophils% 0.9 % (0-5); Hemoglobin 13.3 g/dL (12.0-15.0); Lymphocyte # 2.03 X10^3/ul (0.83-4.51); Lymphocyte % 30.8 % (19-41); Mean Corp Hgb Conc 32.4 g/dL (32-36); Mean Corpuscular Hgb 27.8 pg (27.0-32.0); Mean Corpuscular Volume 85.8 fL (81-99); Mean Platelet Vol. 10.5 fl (6.2-12.0); Monocyte% 7.6 % (0-10); NRBC Flagged by Analyzer 0 % (0-5); Neutrophil # 3.94 X10^3/uL (2.7-7.7); Neutrophil % 59.6 % (47-70); Platelet Count 228 K/mm3 (150-450); RBC Distribution Width CV 11.9 % (11.6-14.6); RBC Distribution Width SD 37.7 fl (35.1-43.9); Red Blood Count 4.78 M/mm3 (4.2-5.4); White Blood Count 6.6 K/mm3 (4.4-11.0)
[2021-12-13 17:16] LABS: ALB/GLOB Ratio 1.2 RATIO (0.9-2.4); AST(SGOT) 12 U/L (15-37); Alanine Aminotransfer ALT/SGPT 21 U/L (13-56); Alkaline Phosphatase 50 U/L (45-117); Anion Gap 4 (5-15); BUN 14 mg/dL (7-18); Calcium,Total 8.9 mg/dL (8.5-10.1); Chloride 107 mmol/L (98-107); Creatinine, Serum 0.78 mg/dL (0.55-1.02); EST Glomerular Filtration Rate 92 mL/min (>60); Est Glom Filt Rate - Afr Amer 112 mL/min (>60); Globulin 3.4 g/dL (2.2-4.2); Glucose 82 mg/dL (74-106); Potassium 4.4 mmol/L (3.5-5.1); Protein, Total 7.4 g/dL (6.4-8.2); Sodium Level 141 mmol/L (136-145)
[2021-12-13 17:29] LABS: Amphetamine Urine VISTA NEGATIVE (<1000 ng/mL); Barbiturate Urine VISTA NEGATIVE (< 200 ng/mL); Benzodiazepine Urine VISTA NEGATIVE (< 200 ng/mL); Cocaine Urine VISTA NEGATIVE (< 300 ng/mL); Ecstacy Urine VISTA NEGATIVE (< 500 ng/mL); Methadone Urine VISTA NEGATIVE (< 300 ng/mL); PCP Urine VISTA NEGATIVE (< 25 ng/mL); THC Urine VISTA NEGATIVE (< 50 ng/mL); Vista UDS pH Range 6
== END | disposition home or self-care (01) ==
LOC: BIMLAB 14:32
PROVIDERS: PCP Internal Medicine; Referring Provider Internal Medicine; Visit Provider Internal Medicine
DX: F90.9 Attention-deficit hyperactivity disorder, unspecified type (principal)
CPT/HCPCS: 36415; 80053; 80307; 85025

== ENCOUNTER → 2022-06-13 | Outpatient (CLI) | payer MEDICAID, SELFPAY ==
[2022-06-13 17:06] LABS: Amphetamine Urine VISTA POSITIVE (<1000 ng/mL); Barbiturate Urine VISTA NEGATIVE (< 200 ng/mL); Benzodiazepine Urine VISTA NEGATIVE (< 200 ng/mL); Cocaine Urine VISTA NEGATIVE (< 300 ng/mL); Ecstacy Urine VISTA NEGATIVE (< 500 ng/mL); Methadone Urine VISTA NEGATIVE (< 300 ng/mL); PCP Urine VISTA NEGATIVE (< 25 ng/mL); THC Urine VISTA NEGATIVE (< 50 ng/mL); Vista UDS pH Range 4
== END | disposition home or self-care (01) ==
LOC: LABSPEC 15:30
PROVIDERS: PCP Internal Medicine; Referring Provider Internal Medicine; Visit Provider Internal Medicine
DX: F90.9 Attention-deficit hyperactivity disorder, unspecified type (principal)
CPT/HCPCS: 80307

== ENCOUNTER → 2023-06-12 | Outpatient (CLI) | payer MEDICAID, SELFPAY ==
[2023-06-22 12:49] LABS: HPV APTIMA, High Risk Negative
== END | disposition home or self-care (01) ==
LOC: LABSPEC 16:16
PROVIDERS: PCP Internal Medicine; Referring Provider Obstetrics & Gynecology; Visit Provider Obstetrics & Gynecology
DX: Z12.4 Encounter for screening for malignant neoplasm of cervix (principal)
CPT/HCPCS: 87624; 88175; G0145

== ENCOUNTER → 2023-07-17 | Outpatient (CLI) | payer MEDICAID, SELFPAY ==
[2023-07-17 12:45] LABS: Absolute Lymphocyte Count 1.58 X10^3/uL (0.83-4.51); Absolute Neutrophil Count 3.9 X10^3/uL (2.0-7.7); Basophil# 0.03 X10^3/uL; Basophil% 0.5 % (0-1); Eosinophil# 0.06 X10^3/uL; Hematocrit 40.8 % (37-47); Hemoglobin 13.4 g/dL (12.0-15.0); Lymphocyte # 1.58 X10^3/ul (0.83-4.51); Lymphocyte % 26.1 % (19-41); Mean Corp Hgb Conc 32.8 g/dL (32-36); Mean Corpuscular Hgb 27.9 pg (27.0-32.0); Mean Corpuscular Volume 84.8 fL (81-99); Mean Platelet Vol. 10.3 fl (6.2-12.0); Monocyte# 0.49 X10^3/uL; Monocyte% 8.1 % (0-10); NRBC Flagged by Analyzer 0 % (0-5); Neutrophil # 3.86 X10^3/uL (2.7-7.7); Neutrophil % 63.6 % (47-70); Platelet Count 246 K/mm3 (150-450); RBC Distribution Width CV 12.4 % (11.6-14.6); RBC Distribution Width SD 37.8 fl (35.1-43.9); Red Blood Count 4.81 M/mm3 (4.2-5.4); White Blood Count 6.1 K/mm3 (4.4-11.0)
[2023-07-17 13:47] LABS: ALB/GLOB Ratio 1.1 RATIO (0.9-2.4); AST(SGOT) 12 U/L (15-37); Alanine Aminotransfer ALT/SGPT 26 U/L (13-56); Albumin, Serum 3.9 g/dL (3.2-5.0); Alkaline Phosphatase 47 U/L (45-117); Anion Gap 6 (5-15); BUN 14 mg/dL (7-18); BUN/Creat Ratio 17.7 RATIO (10-20); Calcium,Total 8.5 mg/dL (8.5-10.1); Chloride 108 mmol/L (98-107); Creatinine, Serum 0.79 mg/dL (0.55-1.02); EST Glomerular Filtration Rate 89 mL/min (>60); Est Glom Filt Rate - Afr Amer 108 mL/min (>60); Globulin 3.7 g/dL (2.2-4.2); Glucose 88 mg/dL (74-106); Protein, Total 7.6 g/dL (6.4-8.2); Sodium Level 139 mmol/L (136-145); T4 Free Direct 0.93 ng/dL (0.76-1.46); Thyroid Stim Hormone (TSH) 1.62 uIU/mL (0.358-3.74)
[2023-07-17 14:21] LABS: Amphetamine Urine VISTA POSITIVE (<1000 ng/mL); Barbiturate Urine VISTA NEGATIVE (< 200 ng/mL); Benzodiazepine Urine VISTA NEGATIVE (< 200 ng/mL); Cocaine Urine VISTA NEGATIVE (< 300 ng/mL); Ecstacy Urine VISTA NEGATIVE (< 500 ng/mL); Methadone Urine VISTA NEGATIVE (< 300 ng/mL); PCP Urine VISTA NEGATIVE (< 25 ng/mL); THC Urine VISTA NEGATIVE (< 50 ng/mL); Vista UDS pH Range 5
== END | disposition home or self-care (01) ==
LOC: BIMLAB 10:45
PROVIDERS: PCP Internal Medicine; Referring Provider Internal Medicine; Visit Provider Internal Medicine
DX: Z13.29 Encounter for screening for other suspected endocrine disorder (principal); F90.9 Attention-deficit hyperactivity disorder, unspecified type; F41.9 Anxiety disorder, unspecified
CPT/HCPCS: 36415; 80053; 80307; 84439; 84443; 85025

== ENCOUNTER 2023-10-02 14:30 | Outpatient (RCR) | payer MEDICAID, SELFPAY ==
--- NOTE | 2023-09-09 15:21 | HP.PTEVAL ---
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 Date of Evaluation: 09/09/23 Physical Therapist: Sae Lou, DPT, OCS, CSCS Visit Plan Frequency: 2x /Week Duration: 4-6 Weeks Plan: 2x/week for 4-6 weeks for 1. ROM r hip er and extension and others within precautions 2. strength R hip to HEP 3. Strengthen core, LE and posture to HEP with db Calorie burning bike elliptical for HEP. ice as needed. may require scar massage in posterior incision Subjective Subjective: R SVEN 08/20/23. 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 Tore labrum in delivery and repair did not hold. Synmptoms was LBP and pain with ambulating and bending. Pain has been good. Hasn't needed pain meds. Stopped opiates shortly after surgery. Has some muscle soreness. in r groin yesterday but not bad today or prior. Incision is posterior approach. Precautions: no bending past 90, no pivotting, no crossing midline. Uses cane most of time to get around outside of house, no cane at home. Sleep is not bad right now. 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 Carrying her around is tough and positioning. Sister is helping her with that. Basic ADLS : I. Has 2 steps to get in with railing and using L. Hobbies: Hiking. Wants to get back to that. Pain R hip: Pain Intensity (Out of 10): 0 Pain Intensity Range: 0 and 7 Objective Objective: 8 sec TUG with cane adn 9 without. R hip incision healed well , dry and no signs excessive redness or heat, typical swelling. Mild scar tissue underneath posterior lateral incision. Walks I with cane and without cane safely but avoids R hip extension with premature toe off on R. Transfer chair I, bed I obeying precautions. Steps hesitant withb R but able adn one railing used when reciprocal. L hip moves well adn is strong at 4-, L knee 4+ and ankles 4/5, R knee 4-. R hip abd 3+, ext 3, flexion 4-. ROM R hip rotation er 30, IR not checked, flexion to 90 with tightness, extension to 3 degrees adn tight. reflexes 2/3 patella and achilles Sensation LE is WNL to gross light touch in B LE. Marching shows decreased stance time on R vs L. 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 Goal Time Frame: 4-6 Weeks Goal 5:: Plan to start hiking. Goal Time Frame: 4-6 Weeks Rehabilitation Potential Physical Therapy Diagnosis: R hip stiffness and weakness leading to gait deficits and diminished activity. Rehabilitation Potential: Good Anticipated Interventions Patient/Client Instruction: Educate patient on: Condition and Risk Factors For the Purpose of:: To decrease pain, To increase ROM, To improve muscle performance and motor function and To increase tolerance to activity/condition/position Therapeutic Exercise to Include: Strength training, Postural training, Flexibilty training, Gait and locomotor training, Passive ROM and Active ROM For the Purpose of:: To decrease pain, To increase ROM, To improve nutrient delivery to tissue, To improve muscle performance and motor function, To increase tolerance to activity/condition/position and To improve ability of physical actions for home/community/work/leisure Manual Therapy Techniques to Include: Scar massage and Passive ROM For the Purpose of:: To decrease pain and To increase ROM Cryotherapy (ice pack, ice massage): Yes For the Purpose of:: To decrease swelling/inflammation Text: Thank you for the opportunity to evaluate your patient. For Medicare and Medicare HMO plans, please review the plan of care and approve it. It will need to be FAXED BACK to us at [phone] for Medicare purposes. For Medicare only, by signing this I certify the plan of care. Please let me know if there are questions or concerns regarding this plan of care. Physician Signature: Date:
--- NOTE | 2023-11-16 09:46 | HP.PT.NRP ---
Patient Information Patient Information: THAIS MADDEN was seen in my office for initial evaluation on 09/09/23. The following Plan of Care was established for this patient: POC Established Initial Frequency: 2x /Week Initial Duration: 4-6 Weeks Anticipated Interventions Patient/Client Instruction: Educate patient on: Condition and Risk Factors For the Purpose of:: To decrease pain, To increase ROM, To improve muscle performance and motor function and To increase tolerance to activity/condition/position Therapeutic Exercise to Include: Strength training, Postural training, Flexibilty training, Gait and locomotor training, Passive ROM and Active ROM For the Purpose of:: To decrease pain, To increase ROM, To improve nutrient delivery to tissue, To improve muscle performance and motor function, To increase tolerance to activity/condition/position and To improve ability of physical actions for home/community/work/leisure Manual Therapy Techniques to Include: Scar massage and Passive ROM For the Purpose of:: To decrease pain and To increase ROM Cryotherapy (ice pack, ice massage): Yes For the Purpose of:: To decrease swelling/inflammation Last Seen Last Seen: This patient was last seen in our office 10/02/23. Pertinent comments regarding their Physical therapy will appear below: Pt seen 8 visits of POC but did not schedule or attend any further visits. At this point, it has been over 6 weeks and I will discontinue due to nonattendance. At this point I will be discontinuing this patient from physical therapy. I would be happy to see this patient again in the future if found appropriate by the physician. Thank you! Sae Lou, DPT, OCS, CSCS Balance/Gait/Functional tests Balance/Special Test Scores Lower Extremity Functional Score: 42
== END 2023-10-02 19:00 | disposition home or self-care (01) ==
LOC: PT 14:30
PROVIDERS: PCP Internal Medicine; Referring Provider Orthopaedic Surgery; Visit Provider Orthopaedic Surgery
DX: Z96.641 Presence of right artificial hip joint (principal)
CPT/HCPCS: 97110; 97161

== ENCOUNTER → 2023-10-16 | Outpatient (CLI) | payer MEDICAID, SELFPAY ==
--- OUTSIDE RECORDS SUMMARY | 2023-10-16 11:36 | XMS RPT_ITS | CCD ---
Author Name Unknown Address [address] [place] [address] Organization [facility] Care Team Providers Care Cumulative Effects Analyst Name Role Phone Unavailable Primary Care Provider Unavailabl e None, No PCP Unavailable Unavailable Dr. Solitario Anaya Referring Unava ilable Pee Bailey Attending Unavailable PEE BAILEY Attending Unavail able Janice JANE, Efewongbe Corrina Primary Care Prov ider PEE BAILEY Referring Unavailable OLEGHE, EFEWONGBE CORRINA Primary Care Unav ailable MARTHA PAREDES Attending Unavailable OLEGHE, EFEWONGBE CORRINA Primary Care Unav ailable MARTHA PAREDES Referring Unavailable OLEGHE, EFEWONGBE CORRINA Primary Care Unav ailable SALPEE TONG Referring Unavailable OLEGHE, EFEWONGBE CORRINA Primary Care Unav ailable PEE BAILEY Attending Unavailable OLEGHE, EFEWONGBE CORRINA Primary Care Unav ailable OLEGHE, EFEWONGBE CORRINA Primary Care Unav ailable SILVIA, SONI Modesto Referring Unavailable OLEGHE, EFEWONGBE CORRINA Primary Care Unav ailable ADILENE GOMEZ Attending Unavailable OLEGHE, EFEWONGBE CORRINA Primary Care Unav ailable ADILENE GOMEZ Referring Unavailable OLEGHE, EFEWONGBE CORRINA Primary Care Unav ailable MARTHA PAREDES Admitting Unavailable MARTHA PAREDES Attending Unavailable OLEGHE, EFEWONGBE CORRINA Primary Care Unav ailable Unavailable Primary Care Provider Unavailabl e Medications Current Medications Medication Drug Class(es) Dates Sig (Normalized) Sig (Original) acetaminophen 325 mg oral tablet (7 sources) Start: 08-20-2023 End: 09-19-2023 take 2 tablets by mouth every six hours for pain acetaminophen (Tylenol) 325 mg tablet Indications: 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 60 tablet 0 08/20/2023 09/19/2023 Active Completed/Discontinued Medications Medication Drug Class(es) Dates Sig (Normalized) Sig (Original) aspirin 81 mg delayed release oral tablet (7 sources) Platelet Aggregation Inhibitor, Nonsteroidal Anti-inflammatory Drug Start: 08-20-2023 End: 09-19-2023 aspirin, enteric coated (ASPIRIN, ENTERIC COATED) 81 mg EC tablet Problems Problem Classification Problem Date Documented Date Episodic/Chronic Acute posthemorrhagic anemia (2 sources) Acute posthemorrhagic anemia; Translations: [Acute posthemorrhagic anemia] Onset: 03-06-2021 Episodic Joint disorders and dislocations; trauma-related (3 sources) Acetabular labrum tear; Translations: [Other articular cartilage disorders, right hip] Onset: 06-10-2023 06-10-2023 Chronic Osteoarthritis (8 sources) 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; Translations: [Unilateral osteoarthritis resulting from hip dysplasia, right hip] Onset: 08-20-2023 08-20-2023 Chronic Other acquired deformities (1 source) Other specified acquired deformities of right thigh; Translations: [Other specified acquired deformities of right thigh] Onset: 04-24-2023 Episodic Other complications of ; puerperium affecting management of mother (2 sources) Indication for care AND/OR intervention in labor AND/OR delivery; Translations: [Complication of labor and delivery, unspecified] Onset: 03-05-2021 Resolved: 03-06-2021 Episodic Other congenital anomalies (13 sources) Disorder of hip joint; Translations: [Other congenital deformity of hip (joint)] Onset: 06-09-2023 06-09-2023 Chronic Other congenital anomalies (17 sources) Congenital hip dysplasia; Translations: [Other specified congenital deformities of hip] Onset: 06-10-2023 06-10-2023 Chronic Other congenital anomalies (4 sources) Congenital deformity of hip joint; Translations: [Other specified congenital deformities of hip] Onset: 06-10-2023 06-10-2023 Chronic Other congenital anomalies (2 sources) Other specified congenital deformities of hip; Translations: [Other specified congenital deformities of hip] Onset: 06-10-2023 Chronic Other non-traumatic joint disorders (2 sources) Hip pain; Translations: [Pain in joint, pelvic region and thigh] Episodic Other non-traumatic joint disorders (13 sources) 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; Translations: [Unspecified disorder of joint, pelvic region and thigh] Onset: 06-09-2023 06-09-2023 Episodic Other non-traumatic joint disorders (3 sources) Pain in right hip; Translations: [Pain in right hip] Onset: 04-24-2023 Episodic Other non-traumatic joint disorders (11 sources) Pain in right hip joint; Translations: [Pain in right hip] Onset: 06-09-2023 06-09-2023 Episodic Other non-traumatic joint disorders (3 sources) Disorder of hip joint; Translations: [Other specified joint disorders, right hip] Onset: 06-10-2023 06-10-2023 Episodic Other non-traumatic joint disorders (2 sources) Enthesopathy of hip region; Translations: [Other specified joint disorders, right hip] 06-10-2023 Episodic Other non-traumatic joint disorders (1 source) Other specified joint disorders, right hip; Translations: [Other specified joint disorders, right hip] Onset: 06-10-2023 Episodic Other upper respiratory infections (1 source) Bacterial sinusitis; Translations: [Chronic sinusitis, unspecified] 09-14-2023 Chronic Unclassified (4 sources) Patient has total joint replacement hip surgery Onset: 08-06-2023 08-06-2023 Results Test Name Value Interpretation Reference Range Facil ity Vital Signs Date Time Vital Sign Value Performing Clinician Facility 09-14-2023 11:34-0500 Body temperature 97.9 [degF] Zayra Madrigal APRN.CNP Work Phone: [facility] 09-14-2023 11:34-0500 Body weight 72.58 kg Zayra Madrigal APRN.CNP Work Phone: [facility] 09-14-2023 11:34-0500 Diastolic blood pressure 70 mm[Hg] Zayra Madrigal APRN.CNP Work Phone: [facility] 09-14-2023 11:34-0500 Heart rate 86 /min Zayra Madrigal BARREL COOPER.FACILITY ASSISTANT Work Phone: [facility] 09-14-2023 11:34-0500 Respiratory rate 16 /min Zayra Madrigal BARREL COOPER.FACILITY ASSISTANT Work Phone: [facility] 09-14-2023 11:34-0500 SaO2% (BldA) [Mass fraction] 98 % Zayra Madrigal BARREL COOPER.FACILITY ASSISTANT Work Phone: [facility] 09-14-2023 11:34-0500 Systolic blood pressure 120 mm[Hg] Zayra Madrigal BARREL COOPER.FACILITY ASSISTANT Work Phone: [facility] 09-04-2023 12:16-0500 Body height 162.6 cm Adilene Gomez PA-C Work Phone: [facility] 09-04-2023 12:16-0500 Body mass index (BMI) [Ratio] 27.12 kg/m2 Adilene Gomez PA-C Work Phone: [facility] 09-04-2023 12:16-0500 Body weight 71.67 kg Adilene Gomez PA-C Work Phone: [facility] 08-20-2023 14:15-0500 Body temperature 97.5 [degF] Martha Paredes MD Work Phone: [facility] 08-20-2023 14:15-0500 Diastolic blood pressure 64 mm[Hg] Martha Paredes MD Work Phone: [facility] 08-20-2023 14:15-0500 Heart rate 85 /min Martha Paredes MD Work Phone: [facility] 08-20-2023 14:15-0500 Respiratory rate 16 /min Martha Paredes MD Work Phone: [facility] 08-20-2023 14:15-0500 SaO2% (BldA) [Mass fraction] 100 % Martha Paredes MD Work Phone: [facility] 08-20-2023 14:15-0500 Systolic blood pressure 120 mm[Hg] Martha Paredes MD Work Phone: [facility] 08-20-2023 06:24-0500 Body height 162.9 cm Martha Paredes MD Work Phone: [facility] 08-20-2023 06:24-0500 Body mass index (BMI) [Ratio] 27.09 kg/m2 Martha Paredes MD Work Phone: [facility] 08-20-2023 06:24-0500 Body weight 71.9 kg Martha Paredes MD Work Phone: [facility] 03-07-2021 11:30-0400 Body temperature 98.4 [degF] [employer] The[employer]uan Pacheco DO Work Phone: [facility] Work Phone: 03-07-2021 11:30-0400 Diastolic blood pressure 73 mm[Hg] Anhtuan Pacheco DO Work Phone: [facility] Work Phone: 03-07-2021 11:30-0400 Heart rate 83 /min Anhtuan Pacheco DO Work Phone: [facility] Work Phone: 03-07-2021 11:30-0400 Respiratory rate 18 /min Anhtuan Pacheco DO Work Phone: [facility] Work Phone: 03-07-2021 11:30-0400 SaO2% (BldA) [Mass fraction] 100 % Anhtuan Pacheoc DO Work Phone: [facility] Work Phone: 03-07-2021 11:30-0400 Systolic blood pressure 112 mm[Hg] Anhtuan Pacheco DO Work Phone: [facility] Work Phone: 03-05-2021 07:43-0400 Body height 165.1 cm [employer] Work Phone: [facility] Work Phone: 03-05-2021 07:43-0400 Body mass index (BMI) [Ratio] 31.12 kg/m2 [employer] Work Phone: [facility] Work Phone: 03-05-2021 07:43-0400 Body weight 84.82 kg [employer] Work Phone: [facility] Work Phone: Encounters Encounter Date Encounter Type Care Provider Facility Start: 09-14-2023 End: 09-14-2023 ambulatory Facility:[facility] Start: 09-14-2023 End: 09-14-2023 Patient encounter procedure Zayra Madrigal FACILITY ASSISTANT Work Phone: [facility] Procedures Date Procedure Procedure Detail Performing Clinician Start: 09-04-2023 XR HIP RIGHT WITH PELVIS WHEN PERFORMED 2 OR 3 VIEWS EFEWONGBE OLEGHE Start: 09-04-2023 Radex hip unilateral with pelvis 2-3 views Adilene Gomez PA-C Work Phone: Start: 08-20-2023 PT EVAL AND TREAT EFEWONGBE OLEGHE Start: 08-20-2023 XR PELVIS 1-2 VIEWS EFEWONGBE OLEGHE Start: 08-20-2023 DISCHARGE PATIENT EFEWONGBE OLEGHE Start: 08-20-2023 ADULT DISCHARGE DIET EFEWONGBE OLEGHE Start: 08-20-2023 DISCHARGE ACTIVITY EFEWONGBE OLEGHE Start: 08-20-2023 DISCHARGE DRESSING EFEWONGBE OLEGHE Start: 08-20-2023 DISCHARGE INSTRUCTIONS EFEWONGBE OLEGHE Start: 08-20-2023 FOLLOW UP WITH PROVIDER EFEWONGBE OLEGHE Start: 08-20-2023 NOTIFY PROVIDER (DO NOT PROMPT FOR PARAMETERS) EFEWONGBE OLEGHE Start: 08-20-2023 INITIATE OBSERVATION STATUS EFEWONGBE OLEGHE Start: 08-20-2023 XR PELVIS 1-2 VIEWS EFEWONGBE OLEGHE Start: 08-20-2023 Radiologic examination pelvis 1/2 views Adilene Gomez PA-C Work Phone: Start: 08-20-2023 ANESTHESIA PERIPHERAL BLOCK EFFRANCAONGBE SETHE Start: 08-20-2023 Radiologic examination pelvis 1/2 views Martha Paredes MD Work Phone: Start: 08-20-2023 Us guidance needle placement img s&i Paulo Monaco MD Work Phone: Start: 08-18-2023 XR PELVIS 1-2 VIEWS EFFRANCAONGBE OLEINDUE Start: 08-18-2023 Basic metabolic 2000 panel - Serum or Plasma EFODILIABE SETHE Start: 08-18-2023 CBC panel - Blood by Automated count EFFRANCAONGBE OLEINDUE Start: 08-18-2023 Hemoglobin A1c/Hemoglobin.total in Blood EFJAZMINBE SETHE Start: 08-18-2023 STAPHYLOCOCCUS AUREUS/MRSA COLONIZATION, CULTURE EFPATIENCE CAMACHO Start: 08-18-2023 TYPE AND SCREEN EFPATIENCE CAMACHO Start: 06-10-2023 CASE REQUEST OPERATING ROOM PEE BAILEY Start: 06-10-2023 Follow-up visit Follow-up PEE BAILEY Start: 06-10-2023 CT 3D RECONSTRUCTION PEE BAILEY Start: 06-10-2023 XR PELVIS 1-2 VIEWS PEE BAILEY Start: 06-10-2023 CT PELVIS WO IV CONTRAST PEE BAILEY Start: 06-10-2023 3d rendering w/interp&postproc diff work station Pee Bailey MD Work Phone: Start: 06-10-2023 Ct pelvis w/o contrast material Pee Bailey MD Work Phone: Start: 03-06-2021 H/O: section Status post primary low transverse section Hiren Pacheco DO Work Phone: Start: 03-06-2021 Blood count hemoglobin Christina Crum O Work Phone: Start: 03-05-2021 Blood count complete automated Enma Mercedes MD Work Phone: Start: 03-05-2021 Blood count platelet automated Hiren Pacheco DO Work Phone: Start: 03-05-2021 Antibody screen Hiren Pacheco DO Work Phone: Start: 03-05-2021 Blood count complete automated Enma Mercedes MD Work Phone: Start: 03-05-2021 Blood typing serologic abo Enma lin MD Work Phone: Start: 02-14-2021 GBS, EXTERNAL RESULT Historical Provider Start: 08-15-2020 ABO, EXTERNAL RESULT Historical Provider Start: 08-15-2020 C. TRACHOMATIS, EXTERNAL RESULT Historical Provider Start: 08-15-2020 HEPATITIS B, EXTERNAL RESULT Historical Provider Start: 08-15-2020 N. GONORRHOEAE, EXTERNAL RESULT Historical Provider Start: 08-15-2020 RH FACTOR, EXTERNAL RESULT Historical Pr ovider Start: 08-15-2020 RPR, EXTERNAL RESULT Historical Provider Start: 08-15-2020 RUBELLA TITER, EXTERNAL RESULT Historical Provider H/O: section Status pos t primary low transverse section Hiren Pacheco DO Work Phone: Plan of Treatment Date Care Activity Detail Author Start: 2041 Zoster Vaccines (1 of 2) Zoster Vaccines (1 of 2) [facility] Start: 03-01-2029 DTaP/Tdap/Td vaccine (2 - Tdap) DTaP/Tdap/Td vaccine (2 - Tdap) [facility] Work Phone: Start: 03-01-2029 DTaP/Tdap/Td Vaccines (3 - Td or Tdap) DTaP/Tdap/Td Vaccines (3 - Td or Tdap) [facility] Start: 03-01-2029 Urine microalbumin profile DTaP,Tdap,Td Vaccine (4 - Td or Tdap) [facility] Start: 10-27-2023 End: 10-27-2023 Patient encounter procedure 10/27/2023 11:00 AM EDT Office Visit Parris Han [address] [address] Adilene Gomez PA-C [address] Department [place] [address] Parris Han Start: 09-21-2023 Subsequent hospital visit by physician [facility] [place] Immunizations Immunization Date Immunization Notes Care Provider Fa cility 03-01-2019 tetanus toxoid, reduced diphtheria toxoid, and acellular pertussis vaccine, adsorbed Ahu [address] [place] [address] Work Phone: 01-04-2013 hepatitis B vaccine, pediatric or pediatric/adolescent dosage u [address] [place] [address] Work Phone: 09-27-2012 hepatitis B vaccine, pediatric or pediatric/adolescent dosage u [address] [place] [address] Work Phone: 08-27-2012 hepatitis B vaccine, pediatric or pediatric/adolescent dosage u [address] [place] [address] Work Phone: 08-17-2012 tetanus toxoid, reduced diphtheria toxoid, and acellular pertussis vaccine, adsorbed u [address] [place] [address] Work Phone: 06-21-2004 influenza, seasonal, injectable [address] Work Phone: 06-21-2004 influenza virus vaccine, unspecified formulation [address] Work Phone: 03-11-2004 measles, mumps and rubella virus vaccine [address] Work Phone: NEGATED: Highlighted row has not occurred!03-07-2021 measles, mumps and rubella virus vaccine Anhtuan Pacheco DO Work Phone: [facility] Work Phone: NEGATED: Highlighted row has not occurred!03-07-2021 tetanus toxoid, reduced diphtheria toxoid, and acellular pertussis vaccine, adsorbed Anhtuan Pacheco DO Work Phone: [facility] Work Phone: Payers Date Payer Category Payer Medicaid [employer] [place] [id number] 2022-Present [phone] [address] [address] [place] [address] Medicaid [id number] 2018 Unknown 2018 Unknown [id number] 1991 Unknown [id number] 1991 Unknown [id number] 1991 Unknown [id number] 1991 Unknown [id number] 1991 Unknown [id number] 1991 Unknown [id number] 1991 Unknown [id number] 1991 Unknown [id number] 1991 Unknown [id number] 1991 Unknown [id number] 1991 Unknown [id number] 1991 Unknown [id number] Social History Date Type Detail Facility Start: 03-05-2021 End: 09-14-2023 Tobacco smoking status SCIS Never smoker [facility] Start: 03-05-2021 End: 09-14-2023 Tobacco use and exposure Never used [facility] Start: 03-05-2021 Alcohol intake Lifetime non-d myron (finding) [facility] Work Phone: Start: 03-05-2021 History SDOH Alcohol Frequency 1 [facility] Work Phone: Start: 1990 Sex Assigned At Not on file S [facility] Work Phone: Start: 05-31-2023 End: 09-04-2023 Exposure to SARS-CoV-2 (event) Not sure [facility] Start: 06-10-2023 Alcohol intake Current drinke r of alcohol (finding) [facility] Work Phone: Start: 07-14-2020 End: 06-10-2023 History of Social function [facility] Work Phone: Start: 07-14-2020 End: 06-10-2023 Tobacco use panel [facility] Work Phone: Start: 06-10-2023 Alcohol Comment socially [facility] Work Phone: Start: 08-18-2023 End: 09-08-2023 Alcohol intake Ex-drinker (finding) [facility] Work Phone: National Score (1-10 0), lower number is lower risk Not on file [facility] Medical Equipment Procedure Code Equipment Code Equipment Origin al Text Equipment Identifier Dates Femoral Head, Ceramic 36 +1.5 - [id number], [id number] FDA Start: 08-20-2023 Screw Cancellous 6.5 X 25 - [id number] ()[id number], [id number] FDA Start: 08-20-2023 Acetabular Cup, Sector, Gripton, Size 52mm - [id number] ()[id number], [id number] FDA Start: 08-20-2023 Liner, Altrx, Neurtal, 36 X 52mm - [id number] ()[id number], [id number] FDA Start: 08-20-2023 Stem, Actis Betsy ar, High, Size 4 - [id number] ()[id number], [id number] FDA Start: 08-20-2023 Screw Cancellous 6.5 X 20 - [id number] ()[id number], [id number] FDA Start: 08-20-2023 Goals Date Patient Goal Desired Activity /State Personal health goal Clinical Notes 12-27-2020 to 09-14-2023 Zayra Madrigal APRN.FACILITY ASSISTANT - 09/14/2023 11:44 AM Lucio Gomez PA-C - 09/04/2023 12:15 PM Magdy Krishna, OT - 08/20/2023 2:07 PM Duncan Agrawal PT - 08/20/2023 1:08 PM EST Note Date & Type Note Facility 09-14-2023 Note HNO ID: [id number] Author: ZAYRA MADRIGAL APRN.FACILITY ASSISTANT Service: ? Author Type: Nurse Practitioner Type: Progress Notes Filed: 09/14/2023 11:56 Note Text: Subjective HPI HPI Thais Madden is a 33 year old female who presents today for CC of sinus pressure. This started 6 weeks ago. Has tried otc medication for relief. Symptoms are worsened by nothing. Nonsmoker. Denies possibility of being . .Patient presents with: Sinus Problem: sinus pressure and drainage x 6 weeks No past medical history on file. PAST SURGICAL HISTORY Procedure Laterality Date APPENDECTOMY HX 08/29/2017 lap appendectomy [facility] Patient has no known allergies. MEDICATIONS meloxicam (MOBIC) 15 mg tablet aspirin, enteric coated (ASPIRIN, ENTERIC COATED) 81 mg EC tablet PNV no.95/ferrous fum/folic ac ( ORAL) Take by mouth. (Patient not taking: Reported on 09/14/2023) VYVANSE 40 mg capsule (Patient not taking: Reported on 09/14/2023) No family history on file. Social History Tobacco Use Smoking status: Never Smokeless tobacco: Never Review of Systems Constitutional: Negative for fever. HENT: Positive for congestion, ear pain and sinus pain. Negative for nosebleeds and sore throat. Respiratory: Negative for cough, shortness of breath and wheezing. Musculoskeletal: Negative for neck pain. Objective Blood pressure 120/70, pulse 86, temperature 36.6 ?C (97.9 ?F), resp. rate 16, weight 72.6 kg (160 lb), SpO2 98%, unknown if currently . Physical Exam Constitutional: General: She is not in acute distress. Appearance: She is not toxic-appearing or diaphoretic. HENT: Head: Normocephalic and atraumatic. Right Ear: Hearing, tympanic membrane, ear canal and external ear normal. Left Ear: Hearing, tympanic membrane, ear canal and external ear normal. Nose: Right Sinus: Maxillary sinus tenderness present. Left Sinus: Maxillary sinus tenderness present. Mouth/Throat: Pharynx: Uvula midline. No pharyngeal swelling, oropharyngeal exudate, posterior oropharyngeal erythema or uvula swelling. Eyes: General: Lids are normal. No scleral icterus. Right eye: No discharge. Left eye: No discharge. Conjunctiva/sclera: Conjunctivae normal. Pupils: Pupils are equal, round, and reactive to light. Neck: Trachea: Trachea normal. Cardiovascular: Rate and Rhythm: Normal rate and regular rhythm. Heart sounds: Normal heart sounds. Pulmonary: Effort: Pulmonary effort is normal. Breath sounds: Normal breath sounds. Musculoskeletal: Cervical back: Normal range of motion and neck supple. Lymphadenopathy: Cervical: No cervical adenopathy. Right cervical: No superficial cervical adenopathy. Left cervical: No superficial cervical adenopathy. Skin: Findings: No rash. Neurological: Mental Status: She is alert and oriented to person, place, and time. ASSESSMENT/PLAN: 1. Bacterial sinusitis - ICD9: 473.9, 041.9, ICD10: J32.9, B96.89 - Will begin treatment with as per antibiotic as written, see orders - Supportive care with plenty of fluids, rest, and analgesia prn. - Follow up in 3-5 days if symptoms persist or worsen. - AMOXICILLIN 875 MG-POTASSIUM CLAVULANATE 125 MG TABLET - FLUTICASONE PROPIONATE 50 MCG/ACTUATION NASAL SPRAY,SUSPENSION Zayra Madrigal APRN.[facility] 09-14-2023 History of Present illness Narrative Subjective HPI HPI Thais Madden is a 33 year old female who presents today for CC of sinus pressure. This started 6 weeks ago. Has tried otc medication for relief. Symptoms are worsened by nothing. Nonsmoker. Denies possibility of being . .Patient presents with: Sinus Problem: sinus pressure and drainage x 6 weeks No past medical history on file. PAST SURGICAL HISTORY Procedure Laterality Date APPENDECTOMY HX 08/29/2017 lap appendectomy [facility] Patient has no known allergies. MEDICATIONS meloxicam (MOBIC) 15 mg tablet aspirin, enteric coated (ASPIRIN, ENTERIC COATED) 81 mg EC tablet PNV no.95/ferrous fum/folic ac ( ORAL) Take by mouth. (Patient not taking: Reported on 09/14/2023) VYVANSE 40 mg capsule (Patient not taking: Reported on 09/14/2023) No family history on file. Social History Tobacco Use Smoking status: Never Smokeless tobacco: Never Review of Systems Constitutional: Negative for fever. HENT: Positive for congestion, ear pain and sinus pain. Negative for nosebleeds and sore throat. Respiratory: Negative for cough, shortness of breath and wheezing. Musculoskeletal: Negative for neck pain. Objective Blood pressure 120/70, pulse 86, temperature 36.6 C (97.9 F), resp. rate 16, weight 72.6 kg (160 lb), SpO2 98%, unknown if currently . Physical Exam Constitutional: General: She is not in acute distress. Appearance: She is not toxic-appearing or diaphoretic. HENT: Head: Normocephalic and atraumatic. Right Ear: Hearing, tympanic membrane, ear canal and external ear normal. Left Ear: Hearing, tympanic membrane, ear canal and external ear normal. Nose: Right Sinus: Maxillary sinus tenderness present. Left Sinus: Maxillary sinus tenderness present. Mouth/Throat: Pharynx: Uvula midline. No pharyngeal swelling, oropharyngeal exudate, posterior oropharyngeal erythema or uvula swelling. Eyes: General: Lids are normal. No scleral icterus. Right eye: No discharge. Left eye: No discharge. Conjunctiva/sclera: Conjunctivae normal. Pupils: Pupils are equal, round, and reactive to light. Neck: Trachea: Trachea normal. Cardiovascular: Rate and Rhythm: Normal rate and regular rhythm. Heart sounds: Normal heart sounds. Pulmonary: Effort: Pulmonary effort is normal. Breath sounds: Normal breath sounds. Musculoskeletal: Cervical back: Normal range of motion and neck supple. Lymphadenopathy: Cervical: No cervical adenopathy. Right cervical: No superficial cervical adenopathy. Left cervical: No superficial cervical adenopathy. Skin: Findings: No rash. Neurological: Mental Status: She is alert and oriented to person, place, and time. ASSESSMENT/PLAN: 1. Bacterial sinusitis - ICD9: 473.9, 041.9, ICD10: J32.9, B96.89 - Will begin treatment with as per antibiotic as written, see orders - Supportive care with plenty of fluids, rest, and analgesia prn. - Follow up in 3-5 days if symptoms persist or worsen. - AMOXICILLIN 875 MG-POTASSIUM CLAVULANATE 125 MG TABLET - FLUTICASONE PROPIONATE 50 MCG/ACTUATION NASAL SPRAY,SUSPENSION Zayra Madrigal APRN.FACILITY ASSISTANT documented in this encounter [facility] 09-04-2023 History of Present illness Narrative History of Present Illness Thais Madden is a 33 y.o. female presenting today for post-op check from R SVEN on 08/20/23. Overall doing ok. Has mild pain that is not requiring narcotics for pain control. Incisions are well healing without redness or drainage. Compliant with WB recommendations and working with therapy. Denies numbness, tingling, f/c, CP, SOB or any other complaints or concerns. Past Medical History: Diagnosis Date ADHD Hip dysplasia, acquired, right Medication Documentation Review Audit Reviewed by Jerri Shaw on 09/04/23 at 1217 Medication Order Taking? Sig Documenting Provider Last Dose Status acetaminophen (Tylenol) 325 mg tablet [id number] Take 2 tablets (650 mg) by mouth every 6 hours if needed for mild pain (1 - 3). Adilene Gomez PA-C Active amphetamine-dextroamphetamine (Adderall) 20 mg tablet [id number] No Take 1 tablet (20 mg) by mouth once daily. Historical Provider, 08/19/2023 Active aspirin 81 mg EC tablet [id number] Take 1 tablet (81 mg) by mouth 2 times a day. Adilene Gomez PA-C Active cyclobenzaprine (Flexeril) 10 mg tablet [id number] Take 1 tablet (10 mg) by mouth 3 times a day as needed for muscle spasms for up to 10 days. Adilene Gomez PA-C 08/30/23 2359 meloxicam (Mobic) 15 mg tablet [id number] Take 1 tablet (15 mg) by mouth once daily. Adilene Gomez PA-C Active pantoprazole (ProtoNix) 40 mg EC tablet [id number] Take 1 tablet (40 mg) by mouth once daily in the morning. Take before meals. Do not crush, chew, or split. Adilene Gomez PA-C Active polyethylene glycol (Miralax) 17 gram packet [id number] Take 17 g by mouth once daily for 10 days. Adilene Gomez PA-C 08/30/23 2359 Discontinued 06/09/23 1452 No Known Allergies Social History Socioeconomic History Marital status: Single Spouse name: Not on file Number of children: Not on file Years of education: Not on file Highest education level: Not on file Occupational History Not on file Tobacco Use Smoking status: Never Smokeless tobacco: Never Vaping Use Vaping Use: Never used Substance and Sexual Activity Alcohol use: Not Currently Drug use: Never Sexual activity: Not on file Other Topics Concern Not on file Social History Narrative Not on file Social Determinants of Health Financial Resource Strain: Not on file Food Insecurity: Not on file Transportation Needs: Not on file Physical Activity: Not on file Stress: Not on file Social Connections: Not on file Intimate Partner Violence: Not on file Housing Stability: Not on file Past Surgical History: Procedure Laterality Date APPENDECTOMY 2018 SECTION, LOW TRANSVERSE 2020 HIP ARTHROSCOPY W/ LABRAL REPAIR 2019 Review of Systems: 30 point ROS reviewed and negative other than as listed in the HPI Physical Exam: Gen: The pt is A&Ox3, NAD, and appear state age and weight Psychiatric: mood and affect are appropriate Eyes: sclera are white, EOM grossly intact ENT: MMM Neck: supple, thyroid is midline Respiratory: respirations are nonlabored, chest rise symmetric CV: rate is regular by palpation of distal pulses Abdomen: nondistended Integument: no obvious cutaneous lesions noted. No signs of lymphangitis. No signs of systemic edema. MSK: right hip surgical incision well healing without edema, erythema, drainage, or other s/sx of infection. Appropriately tender to palpation around the incision. SILT throughout the leg intact. Intact plantarflexion and dorsiflexion. Foot warm and well perfused. Imaging: I personally reviewed multiple views of the R hip were obtained in the office today demonstrate stable position of the hardware. Assessment 33 y.o. female post-op from R SVEN on 08/20/23. Plan: Continue WBAT on RLE with posterior hip precautions Incision well healing; wound care instructed Continue DVT ppx Follow-up 6 weeks with 2 views right hip (AP and cross table lateral) and WB AP pelvis. All of the patient's questions/concerns address and they are in agreement with the plan. documented in this encounter [facility] Work Phone: 08-20-2023 History of Present illness Narrative Occupational Therapy Evaluation/Treatment Patient Name: Thais Madden : 1990 Today's Date: 08/20/23 Time Calculation Start Time: 1252 Stop Time: 1322 Time Calculation (min): 30 min Assessment: End of Session Communication: Bedside nurse End of Session Patient Position: (transport bed with 1 rail up; sister present at bedside) OT Assessment Results: Decreased ADL status, Decreased endurance, Decreased IADLs, Decreased functional mobility Plan: Treatment Interventions: ADL retraining, Functional transfer training, UE strengthening/ROM, Endurance training, Patient/family training, Equipment evaluation/education, Compensatory technique education OT Frequency: 3 times per week OT Discharge Recommendations: Low intensity level of continued care Subjective General: OT Received On: 08/20/23 General Reason for Referral: (R) SVEN posterior approach Past Medical History Relevant to Rehab: congential hip dysplasia, labral tear s/p repair Family/Caregiver Present: Yes Caregiver Feedback: sister, Lakshmi, bedside throughout; pleasant, supportive, and receptive towards OT education Prior to Session Communication: Bedside nurse Patient Position Received: (Bed, 1 rail up on transport cart) General Comment: Pt willing to participate in OT eval this date. Assisted with functional mobility /transfers, dressing, and education /hands-on learning with hip-kit. Pt with good recall of THR preacutions and min vc's throughout to maintain. Precautions: LE Weight Bearing Status: (R WBAT) Medical Precautions: Fall precautions Post-Surgical Precautions: Right hip precautions Pain: Pain Assessment Pain Assessment: 0-10 Pain Score: 4 Pain Location: Hip Pain Orientation: Right Pain Frequency: Constant/continuous Pain Interventions: Repositioned, Therapeutic presence, Cold pack Objective Cognition: Overall Cognitive Status: Within Functional Limits Cognition Comments: Pt drowsy throughout; however, A&Ox4 and follows all commands appropriately. Home Living: Type of Home: House Lives With: Significant other (2 young children (one with special needs); sister to stay with pt for a couple weeks upon d/c) Home Adaptive Equipment: Crutches, Walker rolling or standard Home Layout: One level (1 step within home) Home Access: Stairs to enter without rails Entrance Stairs-Rails: (pt reports secure awning on porch to hold onto) Entrance Stairs-Number of Steps: 2 Bathroom Shower/Tub: Tub/shower unit Bathroom Toilet: (Potentially elevated; pt unsure) Prior Function: ADL Assistance: Independent Homemaking Assistance: Independent Ambulatory Assistance: Independent Hand Dominance: Right IADL History: Current License: Yes Mode of Transportation: Car 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 Leisure and Hobbies: Enjoys spending time with family, being outside, and playing board games ADL: Eating Assistance: Independent (anticipate) Grooming Assistance: Stand by (anticipate) Bathing Assistance: (anticipate ModA while standing; anticipate supervision while sitting) UE Dressing Assistance: Stand by (don /doff overhead sweatshirt while seated EOB) LE Dressing Assistance: Minimal (assist to don R sock /shoe /thread pant leg; pt able to doff safely with use of AE and L foot; pt reports she will likely not purchase hip kit d/t current modified methods and assist from sister) Toileting Assistance with Device: Stand by (anticipate) Bed Mobility/Transfers: Bed Mobility 1 Bed Mobility 1: Supine to sitting Level of Assistance 1: Contact guard Bed Mobility Comments 1: vc's for body mechanics; HOB slightly elevated Bed Mobility 2 Bed Mobility 2: Sitting to supine Level of Assistance 2: Minimum assistance Bed Mobility Comments 2: assist at RLE Transfer 1 Transfer From 1: Sit to, Stand to Transfer to 1: Stand, Sit Transfer Device 1: (PRODUCTION CHECKER) Transfer Level of Assistance 1: Contact guard Trials/Comments 1: completed 4x throughout session; vc's for body mechanics and safe pace of movement; pt with good adherence to precautions and no LOB noted Transfers 2 Transfer From 2: Bed to, Chair with arms to Transfer to 2: Chair with arms, Bed Transfer Device 2: (PRODUCTION CHECKER) Transfer Level of Assistance 2: Contact guard Trials/Comments 2: vc's to for body mechanics- pt with good adherence to THR precautions, no LOB throughout. Pt initially requesting to sit up in chair, however, reports increased drowsiness and requesting to return to bed. Sitting Balance: Dynamic Sitting Balance Dynamic Sitting-Comments: Pt sits EOB ~15 minutes to complete dressing tasks with close supervision; no LOB noted Vision: Vision - Basic Assessment Current Vision: Wears glasses all the time Patient Visual Report: (Denies acute visual deficits) Sensation: Sensation Comment: Denies N/T Strength: Strength Comments: BUE grossly 4+/5 Outcome Measures: [facility] Daily Activity Putting on and taking off regular lower body clothing: A little (with AE) Bathing (including washing, rinsing, drying): A little Putting on and taking off regular upper body clothing: A little Toileting, which includes using toilet, bedpan or urinal: A little Taking care of personal grooming such as brushing teeth: None Eating Meals: None Daily Activity - Total Score: 20 OT Adult Other Outcome Measures 4AT: Negative Education Documentation Handouts, taught by Elisabet Krishna OT at 08/20/2023 2:06 PM. Learner: Patient Readiness: Acceptance Method: Explanation Response: Verbalizes Understanding Body Mechanics, taught by Elisabet Krishna OT at 08/20/2023 2:06 PM. Learner: Patient Readiness: Acceptance Method: Explanation Response: Verbalizes Understanding Precautions, taught by Elisabet Krishna OT at 08/20/2023 2:06 PM. Learner: Patient Readiness: Acceptance Method: Explanation Response: Verbalizes Understanding ADL Training, taught by Elisabet Krishna OT at 08/20/2023 2:06 PM. Learner: Patient Readiness: Acceptance Method: Explanation Response: Verbalizes Understanding Education Comments No comments found. EDUCATION: Pt provided with increased education via verbal expression and demonstration re: hip kit AE (die maker electronic, sock-aide, long handled sponge, leg line department supervisor) to ensure safety, indep, and adherence to hip precautions during I/ADL completion. Pt completes LB dressing with use of AE with minimal assist and demos good understanding /adherence throughout. Pt reports she will not likely purchase hip kit d/t modified methods without use of AE and assist from sister upon discharge. Pt demos additional methods and OT ok'd as pt demos good adherence and safe body mechanics throughout. Pt also educated on adaptive techniques to utilize for comfort /adherence during sleeping, bathing, and other I/ADL tasks. Pt's sister bedside throughout and both appreciative and express good understanding. Goals: Encounter Problems Encounter Problems (Active) ADLs Pt will complete UB /LB bathing tasks with modified independence while seated, AE as needed, and adherence to THR precautions. Start: 08/20/23 Expected End: 09/03/23 Pt will complete LB dressing with modified independence while seated and/or standing and AE. Start: 08/20/23 Expected End: 09/03/23 Pt will complete toilet hygiene while seated /standing with independent level of assistance. Start: 08/20/23 Expected End: 09/03/23 BALANCE Pt will demo improved dynamic sitting /standing balance while engaging in I/ADL task with independent level of assistance and no LOB. Start: 08/20/23 Expected End: 09/03/23 COGNITION/SAFETY Patient will recall and adhere to hip precautions during all functional mobility /ADL tasks in order to demonstrate improved understanding and promote healing post op. Start: 08/20/23 Expected End: 08/27/23 MOBILITY Pt will complete functional ambulation household /community distance with modified independence and LRAD. Start: 08/20/23 Expected End: 09/03/23 TRANSFERS Pt will complete functional transfers with modified independence and LRAD. Start: 08/20/23 Expected End: 09/03/23 Elisabet Krishna (OTR/Kaveh, OTD) Inpatient Occupational Therapist Rehab Office: [phone] Physical Therapy Physical Therapy Evaluation & Treatment Patient Name: Thais Madden Today's Date: 08/20/2023 Time Calculation Start Time: 1201 Stop Time: 1232 Time Calculation (min): 31 min Assessment/Plan PT Assessment PT Assessment Results: Decreased strength, Decreased mobility, Orthopedic restrictions Rehab Prognosis: Excellent Barriers to Discharge: none End of Session Communication: Bedside nurse Assessment Comment: Will benefit from continued work with PT to advance mobility and strength post THR. End of Session Patient Position: Alarm off, not on at start of session (transport cart with 1 rail up) IP OR SWING BED PT PLAN Inpatient or Swing Bed: Inpatient PT Plan Treatment/Interventions: Bed mobility, Transfer training, Gait training, Stair training, Balance training, Strengthening, Therapeutic exercise PT Plan: Skilled PT PT Frequency: BID PT Discharge Recommendations: Low intensity level of continued care PT Recommended Transfer Status: Stand by assist PT - OK to Discharge: Yes (POC/goals/discharge intensity rec created) Subjective General Visit Information: General Reason for Referral: (R) SVEN posterior approach Past Medical History Relevant to Rehab: congential hip dysplasia, labral tear s/p repair Family/Caregiver Present: Yes Caregiver Feedback: sister present towards end of session Prior to Session Communication: Bedside nurse General Comment: Pt agreeable to participate, wanting to attempt to use the restroom. Completes supine<-> sit transfers with assist to maintain THR precautions, otherwise completes transfers and gait activities with CGA-> close supervision. Reviewed THR precautions and ther ex. Adjusted whw. Pt ready for discharge from PT perspective (no need for 2nd PT visit), although will continue to follow if admitted to [facility]. Home Living: Home Living Type of Home: House Lives With: Significant other (sister also staying with patient) Home Adaptive Equipment: Crutches, Walker rolling or standard Home Layout: One level (1 Step within home) Home Access: Stairs to enter without rails Entrance Stairs-Rails: (reports has banister/awning that she could hold onto) Entrance Stairs-Number of Steps: 2 Bathroom Accessibility: believes she has a elevated toilet Prior Level of Function: Prior Function Per Pt/Caregiver Report ADL Assistance: Independent Homemaking Assistance: Independent Ambulatory Assistance: (community amb (I)) Precautions: Precautions Hearing/Visual Limitations: WFL LE Weight Bearing Status: Weight Bearing as Tolerated ((R)) Medical Precautions: Fall precautions Post-Surgical Precautions: Right hip precautions Objective Pain: Pain Assessment Pain Assessment: 0-10 Pain Score: 2 Pain Location: Hip Pain Orientation: Right Cognition: Cognition Overall Cognitive Status: Within Functional Limits General Assessments: Activity Tolerance Endurance: Endurance does not limit participation in activity Sensation Sensation Comment: does not report N/T/ sensation deficits Postural Control Postural Control: Within Functional Limits Static Sitting Balance Static Sitting-Balance Support: No upper extremity supported, Feet unsupported Static Sitting-Level of Assistance: Independent Static Standing Balance Static Standing-Balance Support: Bilateral upper extremity supported Static Standing-Level of Assistance: Close supervision, Distant supervision Dynamic Standing Balance Dynamic Standing-Balance Support: Bilateral upper extremity supported Dynamic Standing-Comments: CGA<-> close supervision with whw Functional Assessments: Bed Mobility Bed Mobility: Yes Bed Mobility 1 Bed Mobility 1: Supine to sitting Level of Assistance 1: Minimum assistance, Minimal verbal cues (x1) Bed Mobility Comments 1: assist at (R) LE Bed Mobility 2 Bed Mobility 2: Sitting to supine Level of Assistance 2: Minimum assistance Bed Mobility Comments 2: assist at (R) LE Transfers Transfer: Yes Transfer 1 Transfer From 1: Bed to Transfer to 1: Stand Transfer Device 1: Walker Transfer Level of Assistance 1: Contact guard, Minimal verbal cues Transfers 4 Transfer From 4: Stand to Transfer to 4: Bed Transfer Level of Assistance 4: Distant supervision, Minimal verbal cues Ambulation/Gait Training Ambulation/Gait Training Performed: Yes Ambulation/Gait Training 1 Surface 1: Level tile Device 1: Rolling walker Assistance 1: Contact guard, Minimal verbal cues Quality of Gait 1: Antalgic, Decreased step length, Inconsistent stride length Comments/Distance (ft) 1: cues for gait patten and use of whw, amb 30 ft to bathroom Extremity/Trunk Assessments: RUE RUE : Within Functional Limits LUE LUE: Within Functional Limits RLE RLE : Exceptions to WFL Strength RLE RLE Overall Strength: ((R) hip grossly 3-/5 otherwise WFL) LLE LLE : Within Functional Limits Treatments: Therapeutic Exercise Therapeutic Exercise Performed: No (deferred performing therex as focused on functional mobility, did review handout with pt.) Ambulation/Gait Training Ambulation/Gait Training Performed: Yes Ambulation/Gait Training 2 Surface 2: Level tile Device 2: Rolling walker Assistance 2: Contact guard, Close supervision Quality of Gait 2: Decreased step length, Antalgic (improved pace) Comments/Distance (ft) 2: 25 ft, 60 ft Transfers Transfer: Yes Transfers 2 Transfer From 2: Stand to Transfer to 2: Toilet Transfer Device 2: (grab bar) Transfer Level of Assistance 2: Contact guard, Moderate verbal cues (x1) Trials/Comments 2: verbal and demo cues to maintain THR precautions Transfers 3 Transfer From 3: Toilet to Transfer to 3: Stand Transfer Device 3: (grab bar) Transfer Level of Assistance 3: Distant supervision Stairs Stairs: Yes Stairs Rails 1: Bilateral Device 1: No device Assistance 1: Contact guard, Close supervision Comment/Number of Steps 1: completed 2+3 steps up and down (discussed holding banister/awning and or crutch along with family assist to complete once at home, pt verbalized understanding and of safe technique. Discussed using walker for 1 step within home.) Outcome Measures: [facility] Basic Mobility Turning from your back to your side while in a flat bed without using bedrails: A little Moving from lying on your back to sitting on the side of a flat bed without using bedrails: A little Moving to and from bed to chair (including a wheelchair): A little Standing up from a chair using your arms (e.g. wheelchair or bedside chair): A little To walk in hospital room: A little Climbing 3-5 steps with railing: A little Basic Mobility - Total Score: 18 Encounter Problems Encounter Problems (Active) Mobility STG - Patient will ambulate with LRAD for 150 ft x2 mod (I). Start: 08/20/23 Expected End: 08/22/23 Will navigate 2 steps with crutch and CGA. Start: 08/20/23 Expected End: 08/22/23 Safety Patient will adhere to hip precautions during ADL's and transfers without cues. Start: 08/20/23 Expected End: 08/22/23 Strength pt will complete THR exercises to improve strength and ROM. Start: 08/20/23 Expected End: 08/22/23 Transfers STG - Patient will perform bed mobility (S)-> mod (I). Start: 08/20/23 Expected End: 08/22/23 STG - Patient will transfer sit to and from stand (S)-> mod (I). Start: 08/20/23 Expected End: 08/22/23 Education Documentation Handouts, taught by Nidhi Agrawal PT at 08/20/2023 1:05 PM. Learner: Family, Patient Readiness: Acceptance Method: Explanation, Demonstration, Handout Response: Verbalizes Understanding, Demonstrated Understanding Comment: THR precautions, therex, gait pattern with whw, stair navigation safety. Issued PT THR handout Precautions, taught by Nidhi Agrawal PT at 08/20/2023 1:05 PM. Learner: Family, Patient Readiness: Acceptance Method: Explanation, Demonstration, Handout Response: Verbalizes Understanding, Demonstrated Understanding Comment: THR precautions, therex, gait pattern with whw, stair navigation safety. Issued PT THR handout Home Exercise Program, taught by Nidhi Agrawal PT at 08/20/2023 1:05 PM. Learner: Family, Patient Readiness: Acceptance Method: Explanation, Demonstration, Handout Response: Verbalizes Understanding, Demonstrated Understanding Comment: THR precautions, therex, gait pattern with whw, stair navigation safety. Issued PT THR handout Mobility Training, taught by Nidhi Agrawal PT at 08/20/2023 1:05 PM. Learner: Family, Patient Readiness: Acceptance Method: Explanation, Demonstration, Handout Response: Verbalizes Understanding, Demonstrated Understanding Comment: THR precautions, therex, gait pattern with whw, stair navigation safety. Issued PT THR handout 08/20/23 at 1:06 PM - Nidhi Agrawal PT Orthopaedic Surgery Progress Note S: Examined in PACU. Resting comfortably. O: BP 116/71 Pulse 71 Temp 37 C (98.6 F) (Temporal) Resp 16 Ht 1.629 m (5' 4.13 ) Wt 71.9 kg (158 lb 8.2 oz) SpO2 99% BMI 27.09 kg/m Gen: arousable, NAD, appropriately conversational Cardiac: RRR to peripheral palpation Resp: nonlabored on RA GI: soft, nondistended MSK: Right Lower Extremity: -postoperative dressing CDI w/o strikethru -appropriate postop pain -Fires DF/PF/EHL/FHL -SILT in saph/sural/SPN/DPN/T distributions -Foot warm, well perfused -Palpable DP pulse, brisk cap refill A/P: 33 y.o. female w/ PMH significant for R hip dysplasia presents w/ R hip OA now s/p R hip conversion of previous hip surgery to SVEN on 08/[address] Paredes. Doing well postop. Plan: - Weight bearing: WBAT, posterior hip precautions - DVT ppx: SCDs, ASA 81 BID - Diet: Regular - Pain: Tylenol, oxycodone /10 - Antibiotics: perioperative ancef 2g q8hr x3 doses - FEN: HLIV with good PO intake - Bowel Regimen: Colace, senna, dulcolax - PT/OT - Pulm: Encourage IS - Continue home medications - No garrison Dispo: ok to dc home from PACU if patient passes PT and if patient urinates on her own Fawad Naidu MD Orthopedic Surgery, PGY3 Available by [employer] Message If admitted, this patient will be followed by the Ortho Trauma Team. Please contact the residents listed below with any questions (available via [employer] Chat weekdays). Please page [phone] (ortho on-call) after 6pm and on weekends. Ortho Trauma First Call: Vaibhav Nuñez, PGY-1 First Call: Martha Sesay PGY-1 Second Call: Derek Alvares PGY-2 Third Call: Fawad Naidu PGY-3 documented in this encounter [facility] Work Phone: 08-20-2023 Hospital Discharge instructions Adilene Gomez PA-C - 08/20/2023 9:26 AM EST Images from the original note were not included. MD Adilene Padilla [facility] [place] [place] Adult Reconstruction and Joint Replacement Surgery DISCHARGE INSTRUCTIONS PLEASE READ CAREFULLY BEFORE CONTACTING YOUR PROVIDER. WE WORK COLLABORATIVELY A TEAM. CALLING MULTIPLE STAFF MEMBERS REGARDING THE SAME ISSUE WILL DELAY YOUR CARE. [employer] IS THE PREFERRED COMMUNICATION FOR ALL TEAM MEMBERS. POSTOPERATIVE INSTRUCTIONS: TOTAL HIP ARTHROPLASTY JOINT CARE TEAM Please use the information below to contact your care team following surgery. If you are leaving a message or using the My Chart portal, please include your full name, date of and date of surgery so that we can correctly identify you. Your call will be returned within 1-2 business days, please do not leave multiple messages with other staff regarding a single issue while you are awaiting a return call. Who to call Contact Information Matters needing handled Adilene Gomez PA-C Physician Loading Machine Operator [employer] Portal Prescription Refills Medical questions/concerns Cher Lee MBA, BSN, RN-BC Ortho Coordinator [facility] Ortho Nurse Navigator [phone] Nursing, medical question related questions or concerns within 6 weeks of surgery Orders for Outpatient Physical Therapy Prescription refills Kristine Albert -Triage Assistant [email or web address] [phone] Prescription Refills Scheduling office Visits Medical questions/concerns Leave of Absence or other paperwork Any concerns more than 6 weeks from surgery - an appointment will need to be made MEDICATION REFILLS - Adilene Gomez PA-C ([employer]) or Kristine Albert ([phone]) -You will NOT receive a call indicating that your prescription has been filled. Please contact your pharmacy with any questions. Medication refills will be filled Thursday-Thursday 7am to 1pm ONLY. Please call the office or send a [employer] message for a refill request. Any requests received outside of this timeframe will be handled on the next business day. Please do not call multiple times or call other members of the care team for medication needs, this will cause the refill to take longer. Per State and Institutional policy, pain medications can only be refilled every 7 days for up to six weeks following surgery. My Chart Portal: If you are using the My Chart portal and are requesting a medication refill, please list what type of surgery you had and left or right side, medication that needs refilled, and pharmacy you would like your medication sent. WEIGHT BEARING - as tolerated with posterior hip precautions taught by therapy ACTIVITY - As Tolerated DRIVING & TRAVEL AFTER SURGERY Patients should anticipate waiting at least 4-6 weeks before traveling long distances after surgery. You will need to stop to walk around ever 1 hour during your travel to help with blood clot prevention. Patients may not drive until cleared by the joint nurse or the office and you are off of all narcotics. DENTAL PROCEDURES & CLEANINGS You must wait a minimum of 3 months for elective dental appointments after a total joint replacement, including routine cleanings or dental work including bridges, crowns, extractions, etc.. Unless, it is an emergency. You will need a prophylactic antibiotic lifelong prior to any dental visit, cleaning or procedure. Your surgeons office or your dentist may provide a prescription antibiotic. Antibiotics are a lifelong need before dental appointments. You do not need antibiotics for endoscopic procedures such as colononoscopy or EGD, dematologic biopsies or eye surgeries. WOUND CARE If you experience continued drainage or bleeding, you may cover with abdominal/Maxi pads (purchase at local drug store). Knee replacements should wrap with an marisa wrap. You may shower with waterproof dressing on. Your surgical bandage will be removed by your home therapist 1 week after surgery. If you have alex intact, home care will remove in 2 weeks. If you have sutures intact, you will need to return to the office in 2 weeks for suture removal. Once the dressing is removed by home care, you may continue to shower. Let soap and water wash over the wound. DO NOT SCRUB. Steri-strips under the bandage will remain in place until they fall off on their own. If they are loose, you may gently remove. If they have not fallen off in two weeks, gently peel them off. Do not remove if pulling causes resistance against the incision. You will see suture tails sticking out of the ends of the incision. DO NOT CUT THEM. They will fall off when the sutures dissolve. If they are bothersome, cover with a band aid. Do not soak in a bath tub, hot tub, pool or harper until you are 8 weeks out from surgery. Do not apply lotions, creams or ointments until you are 6 weeks out from surgery, PAIN, SWELLING, BRUISING & CLICKING Pain and swelling are a natural part of your recovery which is considered normal for up to a year after surgery. Symptoms may be treated with movement, ice, compression stockings, elevating your leg, and by following the pain medication regimen as prescribed. Bruising is normal for several weeks after surgery. You may also have leg swelling and pain in your ji. You may ice areas that are tender to help with discomfort. You are required to wear the provided compression stockings, every day, for 4 weeks following surgery. Remove the stockings at night and place them back on in the morning. Pain and swelling may temporarily increase with an increase in activity or exercise. Use ice after activity. Audible clicking with movement or exercises is considered normal following joint replacement. If this persists at 6 months or 1 year, please notify your surgeon. You may also feel decreased sensation or numbness near the incision site. This is normal and sensation may or may not return. PERSONAL HYGIENE You may shower upon discharging from the hospital. Soap and water is permitted to run over the surgical dressing. Do not scrub directly over these items. DO NOT soak your incision in a bath, hot tub, pool or pond/harper for a minimum of 8 weeks following your surgery. DO NOT use lotions, creams, ointments on your wound for a minimum of 6 weeks following your surgery. At that time you may use vitamin E to assist with softening of your incision. RESTARTING HOME ROUTINE - DIET & MEDICATIONS Post-operative constipation can result due to a combination of inactivity, anesthesia and pain medication. To help prevent this, you should increase your water and fiber intake. Physical activity such as walking will also help stimulate the bowels. You may resume your normal diet when you discharge home. Choose foods that help promote good bowel habits and prevent constipation, such as foods high in fiber. You may restart your home medications the following day after your surgery UNLESS you have been given alternate instructions. Follow the instructions given to you on your hospital discharge instructions for more information regarding your home medications. IN-HOME PHYSICAL THERAPY & OUTPATIENT PHYSICAL THERAPY In-home physical therapy will start 1-2 days after you get home from the hospital. The home care agency will call within the first 24-48 hours to set up their first visit. Please do not call your care team to inquire during this timeframe. Continue the exercises you were given in the hospital until you have been seen by in-home therapy. Make sure to provide a phone number with the ability for the home care staff to leave a message if you do not answer your phone. You may choose any outpatient physical therapy location. EMERGENCIES - WHEN TO CONTACT THE SURGEON'S OFFICE IMMEDIATELY Fever >101 with chills that has been present for at least 48 hours. Excessive bleeding from incision that will not slow down. A small amount of drainage is normal and expected. Once pressure is applied and the area is covered, do not continue to check the area regularly. This will remove pressure and bleeding will continue. Leave in place for 4-6 hours. Signs of infection of incision-excessive drainage that is soaking through your dressing (especially if it is pus-like), redness that is spreading out from the edges of your incision, or increased warmth around the area. Excruciating pain for which the pain medication, taken as instructed, is not helping. Severe calf pain. Go directly to the emergency room or call 911, if you are experiencing chest pain or difficulty breathing. ICE & COLD THERAPY INSTRUCTIONS To assist with pain control and post-op swelling, you should be using ice regularly throughout recovery, especially for the first 6 weeks, regardless of the cold therapy method you use. Always make sure there is a layer of protection between the cold pad and your skin. If you are using ICE PACKS or GEL PACKS, you will need to alternate 20 minutes on, 20 minutes off twice per hour. If you are using an ICE MACHINE, please follow the provided ice machine instructions. These devices differ from ice or ice packs whereas the mechanism circulates water through tubing and a pad to provide longer periods of cold therapy to the desired site. You can use your cold devices around the clock for optimal comfort. We recommend using cold therapy after working with therapy or completing exercises on your own. There is no set schedule in which you must follow while using cold therapy. Below are a few points to remember when using a cold therapy device: You do not need to need to use the 20 on, 20 off method. Detach the pad from the cooler and ambulate at least once every hour. You can check your skin under the pad at this time. You may wear the cold therapy device during periods of sleep including overnight. If you wake up during the night, you can check the skin at this time. You do not need to wake up specifically to perform skin checks. Empty the cooler and pad when device is not in use. Follow copping machine operator's instructions for cleaning your cold therapy device. DISCHARGE MEDICATIONS - Please reference the sample schedule on the reverse side for instructions on how to best schedule medications. PAIN MEDICATION ___X_ Tramadol / Oxycodone Tramadol and Oxycodone have been prescribed for post-operative pain control. These medications will only be refilled ONCE every 7 days for a period of up to 6 weeks following surgery. After 6 weeks, you will transition to acetaminophen and over -the- counter anti-inflammatories such as Ibuprofen, Advil or Aleve in conjunction with ICE/COLD THERAPY. Side effects may be constipation and nausea, vomiting, sleepiness, dizziness, lightheadedness, headache, blurred vision, dry mouth sweating, itching (if you have itching, over-the -counter Benadryl can be used as needed). You may NOT operate a motor vehicle while taking these medications or have been cleared by your care team. ___X_ Acetaminophen (Tylenol) Acetaminophen has been prescribed as an adjunct for pain control. Take two 500 mg tablets every 6 hours for 4 weeks. You will not receive a refill on this medication. Do not exceed 4000mg of acetaminophen within a 24 hour period. Side effects may include nausea, heartburn, drowsiness, and headache. ___X_ Meloxicam (Mobic)-Meloxicam has been prescribed as an adjunct anti-inflammatory to assist in pain control. Take one 15mg tablet once daily for 4 weeks. You will not receive refills on this medication. Side effects may include nausea. May not be prescribed if you are on a more potent blood thinner than aspirin or have chronic kidney disease. BLOOD THINNER ___X_ Blood Thinner A blood thinner has been prescribed to prevent blood clots in your leg or lungs. Take as prescribed on the bottle for 4 weeks. You will not receive a refill on this medication. ANTI NAUSEA ___X_ Proton Pump Inhibitor (PPI)-Stomach Acid Reduction Medication If you are already on a PPI, you will continue your regular medication. If you are not, you will be prescribed Pantoprazole to help with nausea and protect your stomach while taking pain medication. You will not receive a refill on this medication. STOOL SOFTENERS ___X_ Colace (Docusate Sodium) & Senna Take both medications to help with constipation while using the Oxycodone and Tramadol for pain control. You will not receive a refill on this medication. Continued Constipation If you continue to be constipated despite daily use of Miralax and colace, you try an [id number] Dulcolax Suppository and use per instructions on the package. SPECIAL INSTRUCTIONS You will not receive refills on the following medications. Acetaminophen (Tylenol Meloxicam Miralax Colace Pantoprazole Blood Thinner Pain Medication Refills -[phone] or MyChart- Thursday through Thursday 7am-1pm FOLLOW-UP- You should have an appointment with Adilene OCONNOR in 2 weeks. SAMPLE The times below are an example of how to organize medications to optimize pain control Your actual medication schedule may vary based on your last dose taken IN THE HOSPITAL Time 3:00 am 6:00 am 9:00 am 12:00 pm 3:00 pm 6:00 pm 9:00 pm 12:00 am Medications Tramadol Tylenol Oxycodone Miralax Blood Thinner Colace Pantoprazole or other PPI Tramadol Meloxicam Tylenol Oxycodone Tramadol Tylenol Oxycodone Miralax Blood Thinner Colace Tramadol Tylenol Oxycodone You may begin to wean off the pain medication as your pain remains controlled with increased activity. The schedules provided are meant to serve as an example. You may wean off based on your pain control. Please note that pain medications are not filled beyond 6 weeks after surgery. The times below are an example of how to WEAN OFF medications WHILE CONTINUING TO OPTIMIZE PAIN CONTROL. Your actual medication schedule may vary based on your last dose taken. Time 12:00am 4:00am 8:00am 12:00pm 4:00pm 8:00pm Med Tramadol Oxycodone Tramadol Oxycodone Tramadol Oxycodone Time 12:00am 6:00am 12:00pm 6:00pm Med Tramadol Oxycodone Tramadol Oxycodone Time 12:00am 8:00am 4:00pm Med Tramadol Oxycodone Tramadol Time 12:00am 12:00pm Med Tramadol Tramadol documented in this encounter [facility] Work Phone: 08-20-2023 Miscellaneous Notes Arthroplasty Total Hip Posterior Approach (R) Operative Note Date: 08/20/2023 OR Location: [facility] OR Name: Thais Madden, : 1990, Age: 33 y.o., , Sex: female Diagnosis Pre-op Diagnosis * Congenital hip dysplasia [Q65.89] Post-op Diagnosis * Congenital hip dysplasia [Q65.89] Hip Dysplasia, labral tear, previous hip surgery affecting the acetabular anatomy Procedures Conversion of previous hip surgery to total hip Arthroplasty Posterior Approach Surgeons * Martha Paredes - Primary Resident/Fellow/Other Loading Machine Operator: Surgeon(s) and Role: * Fawad Naidu MD - Resident - Assisting Tetryl Boiling Tub Operator: Adilene Gomez PA-C, who was critical and essential as a research lab assistant as there was no qualified resident available. Procedure Summary Anesthesia: General ASA: II Anesthesia Staff: Anesthesiologist: Diego Bustillos DO PAVING MACHINE OPERATOR: Luciana Sandhu, BARREL COOPER-PAVING MACHINE OPERATOR C-AA: JUNE Carroll Estimated Blood Loss: Please see anesthesia record Intra-op Medications: Medication Name Total Dose vancomycin (Vancocin) vial for injection 1 g tobramycin (Nebcin) injection 1,200 mg sodium chloride 0.9 % irrigation solution 4,000 mL Anesthesia Record Intraprocedure I/O Totals Intake LR bolus 1100.00 mL Total Intake 1100 mL Output Est. Blood Loss 100 mL Total Output 100 mL Net Net Volume 1000 mL Specimen: No specimens collected Staff: Preconstruction Manager: Meena Gonzalez RN Scrub Person: Ijeoma Rocha RN Drains and/or Catheters: * None in log * Tourniquet Times: Not used Implants: Implants Type Name Action Serial No. Joint Hip ACETABULAR CUP, SECTOR, GRIPTON, SIZE 52MM - [id number] Implanted Joint Hip LINER, ALTRX, NEURTAL, 36 X 52MM - [id number] Implanted Screw SCREW CANCELLOUS 6.5 X 20 - [id number] Implanted Screw SCREW CANCELLOUS 6.5 X 25 - [id number] Implanted Joint Hip STEM, ACTIS COLLAR, HIGH, SIZE 4 - [id number] Implanted Joint Hip FEMORAL HEAD, CERAMIC 36 +1.5 - [id number] Implanted Findings: please see below Indications: Thais Madden is an 33 y.o. female who is having surgery for Congenital hip dysplasia [Q65.89]. She has had a history of a left hip arthroscopy in the past for labral repair. The patient was seen in the preoperative area. The risks, benefits, complications, treatment options, non-operative alternatives, expected recovery and outcomes were discussed with the patient. The possibilities of reaction to medication, pulmonary aspiration, injury to surrounding structures, bleeding, recurrent infection, the need for additional procedures, failure to diagnose a condition, and creating a complication requiring transfusion or operation were discussed with the patient. The patient concurred with the proposed plan, giving informed consent. The site of surgery was properly noted/marked if necessary per policy. The patient has been actively warmed in preoperative area. Preoperative antibiotics have been ordered and given within 1 hours of incision. Venous thrombosis prophylaxis have been ordered including unilateral sequential compression device Procedure Details: The patient was met in the preoperative holding area and identified by name and medical record number. They were transferred to the operating room and positioned lateral on a pegboard positioner with a gel pad under the axilla. All bony prominences were padded. Preoperative antibiotic prophylaxis and Tranexamic acid were administered. General anesthesia was induced prior to positioning. The correct operative site was identified. Preoperative timeout was performed prior to prepping and draping. The correct operative site was then prepped and draped in the usual sterile fashion using ChloraPrep. A curvilinear incision was then made centering over the greater trochanter. The skin and subcutaneous tissue were dissected with a 10 blade scalpel. Bovie electrocautery was then used to obtain hemostasis. The iliotibial band and gluteus francisco fascia were divided and a Charnley self-retaining retractor was placed at this layer. The posterior edge of the medius was identified and retracted anteriorly with a cobra retractor. The fascia between the gluteus minimus and the piriformis was then identified. The gluteus minimus was then retracted anteriorly along with the medius. The piriformis and posterior lateral hip capsule was then released off of the posterior edge of the greater trochanter in a trapezoidal capsulotomy. Tag suture was then placed at the piriformis tendon and the capsule. The hip was then dislocated through the capsulotomy. A femoral neck osteotomy was then made after palpating the lesser trochanter and measuring the femoral neck cut. An oscillating saw was then used to perform the osteotomy and the femoral head and neck were removed. The femur was then retracted anteriorly with an anterior femoral retractor. The acetabulum was exposed with a sharp Hohmann in the obturator foramen. Peripheral soft tissue structures including the labrum and redundant capsule were excised with a 10 blade scalpel and a Isatu clamp. I had to spend a significant amount of time resection a large amount of previous suture and anchors from the rim, specifically the superior and anterior rim. Three anchors were removed and a large volume of capsular suture. There was a heavy scar burden in the capsule that also added to operative time to adequately exposed the socket. The pulvinar was then excised with electrocautery. We then began to prepare the acetabular socket with hemispherical reamers. We then reamed to 1mm below the ultimate size of the implant. We trialed with the same size as the reamer which demonstrated excellent fit in the pelvis. We then impacted the socket final implant in about 40 to 45 degrees of abduction and 30-35 degrees of anteversion. We used the external alignment deb to measure cup position and was very happy with the overall position. The cellar worker was removed and a trial liner was placed. We then flexed and internally rotated the femur and placed a 2 prong retractor beneath the calcar. We then prepared the proximal femur using a box osteotome followed by a canal finder to bluntly enter the proximal femur. We then used the Clearleapcise broaching device to prepare the proximal femur up to the appropriate size with a good fit and fill of the proximal femur. Rotational stability with the final broach was excellent in the femur. We then placed a trial neck and head and took intraoperative x-ray. After obtaining a good quality film we then assessed limb lengths and were quite happy with overall component position and jain of limb length. We then removed all trial components and placed two cancellous acetabular screws to secure the cup. We then placed a 0 degree highly cross-linked polyethylene liner in the socket. We then reexposed the proximal femur and placed the final femoral stem implant followed by the final head implant after one final trial. I then scrutinized the femoral neck and calcar area for any possibility of an intra-op fracture. The calcar was intact. Limb lengths felt symmetric clinically. She was quite stable and anterior and posterior positions of vulnerability. Soft tissue tension was restored. We then copiously irrigated the wound with Irrisept and normal saline. The soft tissue of the capsule and piriformis were then repaired through bone tunnels in the posterior greater trochanter. Antibiotic powder was placed deeply to prevent infection. Hemostasis was obtained and no drain was required. We then repaired the wound in a standard fashion in layers using #1 Vicryl, 2-0 Vicryl, and 3-0 Monocryl and Dermabond at the skin. A sterile dressing was applied. I was present for the vasquez and critical aspects of the procedure. Postoperative plan: Weightbearing as tolerated with posterior hip precautions. 24 hours of antibiotics for infection prophylaxis. Calcium and vitamin D protocol for bone health. DVT prophylaxis with aspirin. I will see her back in the office in 2 weeks time for wound check, standing AP pelvis, and AP and crosstable lateral view of the hip. Complications: None; patient tolerated the procedure well. Disposition: PACU - hemodynamically stable. Condition: stable Additional Details: none Attending Attestation: I was present and scrubbed for the vasquez portions of the procedure. Martha Paredes Date: 08/20/2023 OR Location: [facility] OR Name: Thais Madden, : 1990, Age: 33 y.o., , Sex: female Diagnosis Pre-op Diagnosis * Congenital hip dysplasia [Q65.89] Post-op Diagnosis * Congenital hip dysplasia [Q65.89] Procedures Arthroplasty Total Hip Posterior Approach 10967 - TX ARTHRP ACETBLR/PROX FEM PROSTC AGRFT/ALGRFT Surgeons * Martha Paredes - Primary Resident/Fellow/Other Loading Machine Operator: Surgeon(s) and Role: * Fawad Naidu MD - Resident - Assisting Adilene Gomez PAC - Geologist Procedure Summary Anesthesia: General ASA: II Anesthesia Staff: Anesthesiologist: Diego Bustillos DO PAVING MACHINE OPERATOR: Luciana Sandhu APRN-PAVING MACHINE OPERATOR C-AA: JUNE Carroll Estimated Blood Loss: 100mL Intra-op Medications: Medication Name Total Dose vancomycin (Vancocin) vial for injection 1 g tobramycin (Nebcin) injection 1,200 mg sodium chloride 0.9 % irrigation solution 4,000 mL Anesthesia Record Intraprocedure I/O Totals Intake LR bolus 1000.00 mL Total Intake 1000 mL Specimen: No specimens collected Staff: Preconstruction Manager: Meena Gonzalez RN Scrub Person: Ijeoma Rocha RN Findings: see op report Complications: None; patient tolerated the procedure well. Disposition: PACU - hemodynamically stable. Condition: stable Specimens Collected: No specimens collected PLAN: WBAT RLE with posterior hip precautions ASA BID for DVT ppx PT/OT eval Dispo: home if clears PT and urinates Adilene Gomez PA-C documented in this encounter [facility] Work Phone: 08-20-2023 Note Formatting of this n ote is different from the original. Arthroplasty Total Hip Posterior Approach (R) Operative Note Date: 08/20/2023 OR Location: [facility] OR Name: Thais Madden, : 1990, Age: 33 y.o., , Sex: female Diagnosis Pre-op Diagnosis * Congenital hip dysplasia [Q65.89] Post-op Diagnosis * Congenital hip dysplasia [Q65.89] Hip Dysplasia, labral tear, previous hip surgery affecting the acetabular anatomy Procedures Conversion of previous hip surgery to total hip Arthroplasty Posterior Approach Surgeons * Martha Paredes - Primary Resident/Fellow/Other Loading Machine Operator: Surgeon(s) and Role: * Fawad Naidu MD - Resident - Assisting Tetryl Boiling Tub Operator: Adilene Gomez PA-C, who was critical and essential as a research lab assistant as there was no qualified resident available. Procedure Summary Anesthesia: General ASA: II Anesthesia Staff: Anesthesiologist: Diego Bustillos DO PAVING MACHINE OPERATOR: Luciana Sandhu APRN-PAVING MACHINE OPERATOR C-AA: JUNE Carroll Estimated Blood Loss: Please see anesthesia record Intra-op Medications: Medication Name Total Dose vancomycin (Vancocin) vial for injection 1 g tobramycin (Nebcin) injection 1,200 mg sodium chloride 0.9 % irrigation solution 4,000 mL Anesthesia Record Intraprocedure I/O Totals Intake LR bolus 1100.00 mL Total Intake 1100 mL Output Est. Blood Loss 100 mL Total Output 100 mL Net Net Volume 1000 mL Specimen: No specimens collected Staff: Preconstruction Manager: Meena Gonzalez RN Scrub Person: Ijeoma Rocha RN Drains and/or Catheters: * None in log * Tourniquet Times: Not used Implants: Implants Type Name Action Serial No. Joint Hip ACETABULAR CUP, SECTOR, GRIPTON, SIZE 52MM - [id number] Implanted Joint Hip LINER, ALTRX, NEURTAL, 36 X 52MM - [id number] Implanted Screw SCREW CANCELLOUS 6.5 X 20 - [id number] Implanted Screw SCREW CANCELLOUS 6.5 X 25 - [id number] Implanted Joint Hip STEM, ACTIS COLLAR, HIGH, SIZE 4 - [id number] Implanted Joint Hip FEMORAL HEAD, CERAMIC 36 +1.5 - [id number] Implanted Findings: please see below Indications: Thais Madden is an 33 y.o. female who is having surgery for Congenital hip dysplasia [Q65.89]. She has had a history of a left hip arthroscopy in the past for labral repair. The patient was seen in the preoperative area. The risks, benefits, complications, treatment options, non-operative alternatives, expected recovery and outcomes were discussed with the patient. The possibilities of reaction to medication, pulmonary aspiration, injury to surrounding structures, bleeding, recurrent infection, the need for additional procedures, failure to diagnose a condition, and creating a complication requiring transfusion or operation were discussed with the patient. The patient concurred with the proposed plan, giving informed consent. The site of surgery was properly noted/marked if necessary per policy. The patient has been actively warmed in preoperative area. Preoperative antibiotics have been ordered and given within 1 hours of incision. Venous thrombosis prophylaxis have been ordered including unilateral sequential compression device Procedure Details: The patient was met in the preoperative holding area and identified by name and medical record number. They were transferred to the operating room and positioned lateral on a pegboard positioner with a gel pad under the axilla. All bony prominences were padded. Preoperative antibiotic prophylaxis and Tranexamic acid were administered. General anesthesia was induced prior to positioning. The correct operative site was identified. Preoperative timeout was performed prior to prepping and draping. The correct operative site was then prepped and draped in the usual sterile fashion using ChloraPrep. A curvilinear incision was then made centering over the greater trochanter. The skin and subcutaneous tissue were dissected with a 10 blade scalpel. Bovie electrocautery was then used to obtain hemostasis. The iliotibial band and gluteus francisco fascia were divided and a Charnley self-retaining retractor was placed at this layer. The posterior edge of the medius was identified and retracted anteriorly with a cobra retractor. The fascia between the gluteus minimus and the piriformis was then identified. The gluteus minimus was then retracted anteriorly along with the medius. The piriformis and posterior lateral hip capsule was then released off of the posterior edge of the greater trochanter in a trapezoidal capsulotomy. Tag suture was then placed at the piriformis tendon and the capsule. The hip was then dislocated through the capsulotomy. A femoral neck osteotomy was then made after palpating the lesser trochanter and measuring the femoral neck cut. An oscillating saw was then used to perform the osteotomy and the femoral head and neck were removed. The femur was then retracted anteriorly with an anterior femoral retractor. The acetabulum was exposed with a sharp Hohmann in the obturator foramen. Peripheral soft tissue structures including the labrum and redundant capsule were excised with a 10 blade scalpel and a Isatu clamp. I had to spend a significant amount of time resection a large amount of previous suture and anchors from the rim, specifically the superior and anterior rim. Three anchors were removed and a large volume of capsular suture. There was a heavy scar burden in the capsule that also added to operative time to adequately exposed the socket. The pulvinar was then excised with electrocautery. We then began to prepare the acetabular socket with hemispherical reamers. We then reamed to 1mm below the ultimate size of the implant. We trialed with the same size as the reamer which demonstrated excellent fit in the pelvis. We then impacted the socket final implant in about 40 to 45 degrees of abduction and 30-35 degrees of anteversion. We used the external alignment deb to measure cup position and was very happy with the overall position. The cellar worker was removed and a trial liner was placed. We then flexed and internally rotated the femur and placed a 2 prong retractor beneath the calcar. We then prepared the proximal femur using a box osteotome followed by a canal finder to bluntly enter the proximal femur. We then used the Urtakse broaching device to prepare the proximal femur up to the appropriate size with a good fit and fill of the proximal femur. Rotational stability with the final broach was excellent in the femur. We then placed a trial neck and head and took intraoperative x-ray. After obtaining a good quality film we then assessed limb lengths and were quite happy with overall component position and jain of limb length. We then removed all trial components and placed two cancellous acetabular screws to secure the cup. We then placed a 0 degree highly cross-linked polyethylene liner in the socket. We then reexposed the proximal femur and placed the final femoral stem implant followed by the final head implant after one final trial. I then scrutinized the femoral neck and calcar area for any possibility of an intra-op fracture. The calcar was intact. Limb lengths felt symmetric clinically. She was quite stable and anterior and posterior positions of vulnerability. Soft tissue tension was restored. We then copiously irrigated the wound with Irrisept and normal saline. The soft tissue of the capsule and piriformis were then repaired through bone tunnels in the posterior greater trochanter. Antibiotic powder was placed deeply to prevent infection. Hemostasis was obtained and no drain was required. We then repaired the wound in a standard fashion in layers using #1 Vicryl, 2-0 Vicryl, and 3-0 Monocryl and Dermabond at the skin. A sterile dressing was applied. I was present for the vasquez and critical aspects of the procedure. Postoperative plan: Weightbearing as tolerated with posterior hip precautions. 24 hours of antibiotics for infection prophylaxis. Calcium and vitamin D protocol for bone health. DVT prophylaxis with aspirin. I will see her back in the office in 2 weeks time for wound check, standing AP pelvis, and AP and crosstable lateral view of the hip. Complications: None; patient tolerated the procedure well. Disposition: PACU - hemodynamically stable. Condition: stable Additional Details: none Attending Attestation: I was present and scrubbed for the vasquez portions of the procedure. Martha Paredes [facility] Work Phone: 08-20-2023 Note Formatting of this n ote is different from the original. Date: 08/20/2023 OR Location: [facility] [place] Thu OR Name: PEDRO Arango: 1990, Age: 33 y.o., , Sex: female Diagnosis Pre-op Diagnosis * Congenital hip dysplasia [Q65.89] Post-op Diagnosis * Congenital hip dysplasia [Q65.89] Procedures Arthroplasty Total Hip Posterior Approach 31060 - TX ARTHRP ACETBLR/PROX FEM PROSTC AGRFT/ALGRFT Surgeons * Martha Paredes - Primary Resident/Fellow/Other Loading Machine Operator: Surgeon(s) and Role: * Fawad Naidu MD - Resident - Assisting Adilene Gomez PAC - Geologist Procedure Summary Anesthesia: General ASA: II Anesthesia Staff: Anesthesiologist: Diego Bustillos DO PAVING MACHINE OPERATOR: Luciana Sandhu APRN-PAVING MACHINE OPERATOR C-AA: JUNE Carroll Estimated Blood Loss: 100mL Intra-op Medications: Medication Name Total Dose vancomycin (Vancocin) vial for injection 1 g tobramycin (Nebcin) injection 1,200 mg sodium chloride 0.9 % irrigation solution 4,000 mL Anesthesia Record Intraprocedure I/O Totals Intake LR bolus 1000.00 mL Total Intake 1000 mL Specimen: No specimens collected Staff: Preconstruction Manager: Meena Gonzalez RN Scrub Person: Ijeoma Rocha RN Findings: see op report Complications: None; patient tolerated the procedure well. Disposition: PACU - hemodynamically stable. Condition: stable Specimens Collected: No specimens collected PLAN: WBAT RLE with posterior hip precautions ASA BID for DVT ppx PT/OT eval Dispo: home if clears PT and urinates Adilene Gomez PA-C [facility] Work Phone: 08-20-2023 Consult note Formatting of th is note is different from the original. Consults Acute Pain Service Thais Madden is a 33 y.o. year old female patient who presents for Arthroplasty R. Total hip posterior approach with Dr. Paredes. Acute Pain consulted for block for postoperative pain control. Anticipated Postop Pain Issues - Palliative: typically relieved with IV analgesics and regional local anesthetics Provocative: typically with movement Quality: typically burning and aching Radiation: typically none Severity: typically severe 8-10/10 Timing: typically constant Past Medical History: Diagnosis Date ADHD Hip dysplasia, acquired, right Past Surgical History: Procedure Laterality Date APPENDECTOMY 2018 SECTION, LOW TRANSVERSE 2020 HIP ARTHROSCOPY W/ LABRAL REPAIR 2019 Family History Problem Relation Name Age of Onset Heart attack Father Social History Socioeconomic History Marital status: Single Spouse name: Not on file Number of children: Not on file Years of education: Not on file Highest education level: Not on file Occupational History Not on file Tobacco Use Smoking status: Never Smokeless tobacco: Never Vaping Use Vaping Use: Never used Substance and Sexual Activity Alcohol use: Not Currently Drug use: Never Sexual activity: Not on file Other Topics Concern Not on file Social History Narrative Not on file Social Determinants of Health Financial Resource Strain: Not on file Food Insecurity: Not on file Transportation Needs: Not on file Physical Activity: Not on file Stress: Not on file Social Connections: Not on file Intimate Partner Violence: Not on file Housing Stability: Not on file No Known Allergies Review of Systems Gen: No fatigue, anorexia, insomnia, fever. Eyes: No vision loss, double vision, drainage, eye pain. ENT: No pharyngitis, dry mouth, no hearing changes or ear discharge Cardiac: No chest pain, palpitations, syncope, near syncope. Pulmonary: No shortness of breath, cough, hemoptysis. Heme/lymph: No swollen glands, fever, bleeding. GI: No abdominal pain, change in bowel habits, melena, hematemesis, hematochezia, nausea, vomiting, diarrhea. : No discharge, dysuria, frequency, urgency, hematuria. Endo: No polyuria or weight loss. Musculoskeletal: Negative for any pain or loss of ROM/weakness Skin: No rashes or lesions Neuro: Normal speech, no numbness or weakness. No gait difficulties Review of systems is otherwise negative unless stated above or in history of present illness. Physical Exam: Constitutional: no distress, alert and cooperative Eyes: clear sclera Head/Neck: No apparent injury, trachea midline Respiratory/Thorax: Patent airways, thorax symmetric, breathing comfortably Cardiovascular: no pitting edema Gastrointestinal: Nondistended Musculoskeletal: ROM intact Extremities: no clubbing Neurological: alert, dangelo x4 Psychological: Appropriate affect No results found for this or any previous visit (from the past 24 hour(s)). Thais Madden is a 33 y.o. year old female patient who presents for Arthroplasty R. Total hip posterior approach with Dr. Paredes. Acute Pain consulted for block for postoperative pain control. Plan: - R. Sided QL SS block performed preoperatively on 08/20/23 - Pain medications per primary team - Will see on POD1 [place] [id number] ph [phone]. Associated attestation - Pee Victoria MD - 08/20/2023 1:41 PM EST I saw and evaluated the patient. I personally obtained the vasquez and critical portions of the history and physical exam or was physically present for vasquez and critical portions performed by the resident/fellow. I reviewed the resident/fellow's documentation and discussed the patient with the resident/fellow. I agree with the resident/fellow's medical decision making as documented in the note. [facility] Work Phone: 08-20-2023 Consult note Formatting of th is note is different from the original. Consults Acute Pain Service Thais Madden is a 33 y.o. year old female patient who presents for Arthroplasty R. Total hip posterior approach with Dr. Paredes. Acute Pain consulted for block for postoperative pain control. Anticipated Postop Pain Issues - Palliative: typically relieved with IV analgesics and regional local anesthetics Provocative: typically with movement Quality: typically burning and aching Radiation: typically none Severity: typically severe 8-10/10 Timing: typically constant Past Medical History: Diagnosis Date ADHD Hip dysplasia, acquired, right Past Surgical History: Procedure Laterality Date APPENDECTOMY 2018 SECTION, LOW TRANSVERSE 2020 HIP ARTHROSCOPY W/ LABRAL REPAIR 2019 Family History Problem Relation Name Age of Onset Heart attack Father Social History Socioeconomic History Marital status: Single Spouse name: Not on file Number of children: Not on file Years of education: Not on file Highest education level: Not on file Occupational History Not on file Tobacco Use Smoking status: Never Smokeless tobacco: Never Vaping Use Vaping Use: Never used Substance and Sexual Activity Alcohol use: Not Currently Drug use: Never Sexual activity: Not on file Other Topics Concern Not on file Social History Narrative Not on file Social Determinants of Health Financial Resource Strain: Not on file Food Insecurity: Not on file Transportation Needs: Not on file Physical Activity: Not on file Stress: Not on file Social Connections: Not on file Intimate Partner Violence: Not on file Housing Stability: Not on file No Known Allergies Review of Systems Gen: No fatigue, anorexia, insomnia, fever. Eyes: No vision loss, double vision, drainage, eye pain. ENT: No pharyngitis, dry mouth, no hearing changes or ear discharge Cardiac: No chest pain, palpitations, syncope, near syncope. Pulmonary: No shortness of breath, cough, hemoptysis. Heme/lymph: No swollen glands, fever, bleeding. GI: No abdominal pain, change in bowel habits, melena, hematemesis, hematochezia, nausea, vomiting, diarrhea. : No discharge, dysuria, frequency, urgency, hematuria. Endo: No polyuria or weight loss. Musculoskeletal: Negative for any pain or loss of ROM/weakness Skin: No rashes or lesions Neuro: Normal speech, no numbness or weakness. No gait difficulties Review of systems is otherwise negative unless stated above or in history of present illness. Physical Exam: Constitutional: no distress, alert and cooperative Eyes: clear sclera Head/Neck: No apparent injury, trachea midline Respiratory/Thorax: Patent airways, thorax symmetric, breathing comfortably Cardiovascular: no pitting edema Gastrointestinal: Nondistended Musculoskeletal: ROM intact Extremities: no clubbing Neurological: alert, dangelo x4 Psychological: Appropriate affect No results found for this or any previous visit (from the past 24 hour(s)). Thais Madden is a 33 y.o. year old female patient who presents for Arthroplasty R. Total hip posterior approach with Dr. Paredes. Acute Pain consulted for block for postoperative pain control. Plan: - R. Sided QL SS block performed preoperatively on 08/20/23 - Pain medications per primary team - Will see on POD1 [place] [phone] ph [phone]. Associated attestation - Pee Victoria MD - 08/20/2023 1:41 PM EST I saw and evaluated the patient. I personally obtained the vasquez and critical portions of the history and physical exam or was physically present for vasquez and critical portions performed by the resident/fellow. I reviewed the resident/fellow's documentation and discussed the patient with the resident/fellow. I agree with the resident/fellow's medical decision making as documented in the note. documented in this encounter [facility] Work Phone: 08-20-2023 Procedure note Associated Ord er(s): Peripheral Block Images from the original note were not included. Peripheral Block Patient location during procedure: pre-op Start time: 08/20/2023 6:56 AM End time: 08/20/2023 7:04 AM Reason for block: at surgeon's request Staffing Performed: resident Authorized by: Martha Paredes MD Performed by: Paulo Monaco MD Preanesthetic Checklist Completed: patient identified, IV checked, site marked, risks and benefits discussed, surgical consent, monitors and equipment checked, pre-op evaluation and timeout performed Timeout performed at: 08/20/2023 6:56 AM Peripheral Block Patient position: laying flat Prep: ChloraPrep Patient monitoring: heart rate and continuous pulse ox Block type: QL Laterality: right Injection technique: single-shot Guidance: ultrasound guided Local infiltration: lidocaine Needle Needle type: Pajunk. Needle gauge: 22 G Needle length: 8 cm Needle localization: ultrasound guidance image stored in chart Assessment Injection assessment: negative aspiration for heme, no paresthesia on injection, incremental injection and local visualized surrounding nerve on ultrasound Additional Notes R sided QL single shot. informed consent obtained. risks and benefits discussed. ASA monitors placed, timeout performed. Pt positioned, prepped with chlorhexidine, draped with sterile towels. Ultrasound guidance used with visualization of the needle throughout duration of the procedure. Aspiration was negative. A total of 20 cc 0.5% ropivacaine, 100mcg epinephrine, and 4mg decadron injected. Patient tolerated procedure well. Timeout by Connie KEVIN Associated attestation - Pee Victoria MD - 08/20/2023 2:00 PM EST I saw and evaluated the patient. I personally obtained the vasquez and critical portions of the history and physical exam or was physically present for vasquez and critical portions performed by the resident/fellow. I reviewed the resident/fellow's documentation and discussed the patient with the resident/fellow. I agree with the resident/fellow's medical decision making as documented in the note. [facility] Work Phone: 08-20-2023 Procedure note Associated Ord er(s): Peripheral Block Images from the original note were not included. Peripheral Block Patient location during procedure: pre-op Start time: 08/20/2023 6:56 AM End time: 08/20/2023 7:04 AM Reason for block: at surgeon's request Staffing Performed: resident Authorized by: Martha Paredes MD Performed by: Paulo Monaco MD Preanesthetic Checklist Completed: patient identified, IV checked, site marked, risks and benefits discussed, surgical consent, monitors and equipment checked, pre-op evaluation and timeout performed Timeout performed at: 08/20/2023 6:56 AM Peripheral Block Patient position: laying flat Prep: ChloraPrep Patient monitoring: heart rate and continuous pulse ox Block type: QL Laterality: right Injection technique: single-shot Guidance: ultrasound guided Local infiltration: lidocaine Needle Needle type: Pajunk. Needle gauge: 22 G Needle length: 8 cm Needle localization: ultrasound guidance image stored in chart Assessment Injection assessment: negative aspiration for heme, no paresthesia on injection, incremental injection and local visualized surrounding nerve on ultrasound Additional Notes R sided QL single shot. informed consent obtained. risks and benefits discussed. ASA monitors placed, timeout performed. Pt positioned, prepped with chlorhexidine, draped with sterile towels. Ultrasound guidance used with visualization of the needle throughout duration of the procedure. Aspiration was negative. A total of 20 cc 0.5% ropivacaine, 100mcg epinephrine, and 4mg decadron injected. Patient tolerated procedure well. Timeout by Connie KEVIN Associated attestation - Pee Victoria MD - 08/20/2023 2:00 PM EST I saw and evaluated the patient. I personally obtained the vasquez and critical portions of the history and physical exam or was physically present for vasquez and critical portions performed by the resident/fellow. I reviewed the resident/fellow's documentation and discussed the patient with the resident/fellow. I agree with the resident/fellow's medical decision making as documented in the note. documented in this encounter [facility] Work Phone: 08-20-2023 History and physical note [facility] Department of Orthopaedic Surgery Surgical History & Physical >30 Days Reason for Surgery: Hip dysplasia Planned Procedure: Right total hip arthroplasty History & Physical Reviewed: I have reviewed the History and Physical dated 06/10/23. Relevant findings and updates are noted below: No significant changes. 32-year-old female who has had a previous hip arthroscopy is done in [place]. She had a labral tear after the delivery of her first child. She has had ongoing pain over the past several years. It has gotten quite bad since the delivery of her second child. She went back to her surgeon in [place] is no longer a candidate for hip arthroscopy because he recognized her underlying hip dysplasia. Past Medical History: Diagnosis Date ADHD Hip dysplasia, acquired, right Past Surgical History: Procedure Laterality Date APPENDECTOMY 2017 SECTION, LOW TRANSVERSE 2020 HIP ARTHROSCOPY W/ LABRAL REPAIR 2019 Social History Tobacco Use Smoking status: Never Smokeless tobacco: Never Substance Use Topics Alcohol use: Not Currently Prior to Admission medications Medication Sig Start Date End Date Taking? Authorizing Provider amphetamine-dextroamphetamine (Adderall) 20 mg tablet Take 1 tablet (20 mg) by mouth once daily. 04/03/23 Historical Provider, chlorhexidine (Hibiclens) 4 % external liquid Apply topically 2 times a day for 5 days. 08/18/23 08/23/23 IZAIAH Nino chlorhexidine (Peridex) 0.12 % solution Swish and spit 15 mL night before surgery and morning of surgery 08/18/23 IZAIAH Nino ipratropium (Atrovent) 21 mcg (0.03 %) nasal spray 01/02/23 08/18/23 Historical Provider, Vyvjocelyn 30 mg capsule Take 1 capsule (30 mg) by mouth once daily in the morning. Take before meals. 03/18/23 04/17/23 Historical Provider, No Known Allergies Review of Systems: Gen: Denies recent weight loss Neuro: Denies recent confusion Ophtho: Denies changes in vision ENT: Denies changes in hearing Endo: Denies weight loss/weight gain CV: Denies chest pain Resp: Denies shortness of breath GI: Denies melena/hematochezia : Denies painful urination MSK: Per above HPI Heme: No abnormal bleeding Psych: Denies hallucinations Physical Exam: - Constitutional: No acute distress, cooperative - Eyes: EOM grossly intact - Head/Neck: Trachea midline - Respiratory/Thorax: Normal work of breathing - Cardiovascular: RRR on peripheral palpation - Gastrointestinal: Nondistended - Psychological: Appropriate mood/behavior - Skin: Warm and dry. Additional findings in musculoskeletal evaluation - Musculoskeletal: RLE: - skin intact, no obvious deformity, minimal swelling. Painful with hip impingement tests. -Motor intact in DF/PF/EHL/FHL -SILT in saph/sural/SPN/DPN distributions -Foot wwp, 2+ DP/PT pulse, brisk cap refill -Compartments soft and compressible, no pain with passive dorsiflexion ERAS patient?: No COVID-19 Risk Consent: Surgeon has reviewed the vasquez risks related to matthew COVID-19 and subsequent sequelae. 08/20/23 Vaibhav Nuñez MD [facility] Work Phone: 08-20-2023 History and physical note [facility] Department of Orthopaedic Surgery Surgical History & Physical >30 Days Reason for Surgery: Hip dysplasia Planned Procedure: Right total hip arthroplasty History & Physical Reviewed: I have reviewed the History and Physical dated 06/10/23. Relevant findings and updates are noted below: No significant changes. 32-year-old female who has had a previous hip arthroscopy is done in [place]. She had a labral tear after the delivery of her first child. She has had ongoing pain over the past several years. It has gotten quite bad since the delivery of her second child. She went back to her surgeon in [place] is no longer a candidate for hip arthroscopy because he recognized her underlying hip dysplasia. Past Medical History: Diagnosis Date ADHD Hip dysplasia, acquired, right Past Surgical History: Procedure Laterality Date APPENDECTOMY 2018 SECTION, LOW TRANSVERSE 2020 HIP ARTHROSCOPY W/ LABRAL REPAIR 2019 Social History Tobacco Use Smoking status: Never Smokeless tobacco: Never Substance Use Topics Alcohol use: Not Currently Prior to Admission medications Medication Sig Start Date End Date Taking? Authorizing Provider amphetamine-dextroamphetamine (Adderall) 20 mg tablet Take 1 tablet (20 mg) by mouth once daily. 04/03/23 Historical Provider, chlorhexidine (Hibiclens) 4 % external liquid Apply topically 2 times a day for 5 days. 08/18/23 08/23/23 IZAIAH Nino chlorhexidine (Peridex) 0.12 % solution Swish and spit 15 mL night before surgery and morning of surgery 08/18/23 IZAIAH Nino ipratropium (Atrovent) 21 mcg (0.03 %) nasal spray 01/02/23 08/18/23 Historical Provider, Vyvanse 30 mg capsule Take 1 capsule (30 mg) by mouth once daily in the morning. Take before meals. 03/18/23 04/17/23 Historical Provider, No Known Allergies Review of Systems: Gen: Denies recent weight loss Neuro: Denies recent confusion Ophtho: Denies changes in vision ENT: Denies changes in hearing Endo: Denies weight loss/weight gain CV: Denies chest pain Resp: Denies shortness of breath GI: Denies melena/hematochezia : Denies painful urination MSK: Per above HPI Heme: No abnormal bleeding Psych: Denies hallucinations Physical Exam: - Constitutional: No acute distress, cooperative - Eyes: EOM grossly intact - Head/Neck: Trachea midline - Respiratory/Thorax: Normal work of breathing - Cardiovascular: RRR on peripheral palpation - Gastrointestinal: Nondistended - Psychological: Appropriate mood/behavior - Skin: Warm and dry. Additional findings in musculoskeletal evaluation - Musculoskeletal: RLE: - skin intact, no obvious deformity, minimal swelling. Painful with hip impingement tests. -Motor intact in DF/PF/EHL/FHL -SILT in saph/sural/SPN/DPN distributions -Foot wwp, 2+ DP/PT pulse, brisk cap refill -Compartments soft and compressible, no pain with passive dorsiflexion ERAS patient?: No COVID-19 Risk Consent: Surgeon has reviewed the vasquez risks related to matthew COVID-19 and subsequent sequelae. 08/20/23 Vaibhav Nuñez MD documented in this encounter [facility] Work Phone: 06-10-2023 History of Present illness Narrative Patient returns to see me today she saw Dr. Paredes she has some mild degenerative changes as well as recurrent labral tearing versus labral deficiency from a previous surgery. She has known dysplasia and residual cam deformity pincer impingement possible cartilaginous loose body we discussed with her her options including consideration of total hip replacement versus moving forward with a revision hip arthroscopy possible labral repair versus augmentation loose body removal rim trim revision femoral osteoplasty and capsular plication in conjunction with a periacetabular osteotomy. We had a noreen discussion with the patient that if we were not to encounter significant osteoarthritic change at the time of her surgery we may only perform a debridement of the labrum and take pictures of the osteoarthritic change as this would alter the surgical plan she is in agreement with this plan of care Risks of surgery which include but are not limited to bleeding, infection, damage to nerves, damage to blood vessels, blood clots, heterotopic ossification, avascular necrosis, progression to hip replacement, pudendal nerve palsy, iatrogenic instability, incomplete pain relief, capsular labral adhesions, decreased range of motion, risks of anesthesia including heart attack stroke and were explained to the patient. They expressed understanding of these risks and wished to proceed with operative intervention. documented in this encounter [facility] Work Phone: 06-10-2023 History of Present illness Narrative This is a consultation for Dr. Bailey. This is a 32-year-old female who has had a previous hip arthroscopy is done in [place]. She had a labral tear after the delivery of her first child. She has had ongoing pain over the past several years. It has gotten quite bad since the delivery of her second child. She went back to her surgeon in [place] is no longer a candidate for hip arthroscopy because he recognized her underlying hip dysplasia. MRI demonstrates some early cartilage loss but no full-blown arthritis. She does have an inferior osteophyte some of her imaging. She has a C sign with anterior and lateral pain. She has occasional posterior pain as well. It is worse with activity and better with rest but is now present even with mild activity and basic ADLs. The patients full medical history, surgical history, medications, allergies, family, medical history, social history, and a complete 30 point review of systems is documented in the medical record on the signed, scanned medical intake sheet or reviewed in the history of present illness. Gen: The patient is alert and oriented 3, is in no acute distress, and appear their stated age and weight. Psychiatric: Mood and affect are appropriate. Eyes: Sclera are white, and pupils are round and symmetric. ENT: Mucous membranes are moist. Neck: Supple. Thyroid is midline. Respiratory: Respirations are nonlabored, chest rise is symmetric. Cardiac: Rate is regular by palpation of distal pulses. Abdomen: Nondistended. Integument: No obvious cutaneous lesions are noted. No signs of lymphangitis. No signs of systemic edema. Gait and stance examination demonstrate a reciprocal heel toe gait. Trendelenburg sign is negative. Right hip examination reveals 120 degrees of flexion, 30 degrees of internal rotation, 50 degrees of external rotation, and 50 degrees of abduction. Anterior impingement sign is positive. Posterior impingement sign is negative. Subspine impingement sign is negative. GURPREET test is negative. Stinchfield test is positive. Dena test is negative. There is no tenderness to palpation over the pubic symphysis, anterior groin, greater trochanter, or gluteal region. Posterior apprehension is positive. Anterior apprehension is negative. Hip flexion strength is 5 out of 5. Adductor strength is 5 out of 5. Abduction strength is 5 out of 5 in the lateral position. Pelvic obliquity is level. Distally, ankle dorsiflexion and plantarflexion as well as great toe extension is 5 out of 5. Sensation is intact to light touch in the tibial, sural, saphenous, superficial peroneal, and deep peroneal nerve distributions. The foot is warm and well-perfused with palpable pedal pulses. There is no obvious edema present. Skin is warm, dry and intact. Multiple views of her hip and pelvis as well as CT scan was reviewed to demonstrate inferior osteophyte and mild lateral socket changes but overall she has a very shallow socket with significant posterior undercoverage and very diminished lateral center edge angle well below 25. MRI was not available to review today. 32-year-old female with very early grade 1 cartilage changes per report of Dr. Bailey is a review of her MRI as well as some changes seen on CT scan. She has underlying dysplasia and a new labral tear that may require reconstruction with allograft. Very complicated situation but she is very young and I still think there is some benefit to attempting hip preservation surgery in her rather than converting to immediate arthroplasty which is a bridge that cannot be a process. We had a long discussion about TORI and hip scope and she would like to proceed with that in September on 09/21. We had a discussion regarding the full details of the procedure, the proposed surgical plan, the cutting of the acetabular socket free from the intact pelvis and reorientation. We discussed combined arthroscopic and open approach with Dr. Bailey for possible decompression of her femoral head with osteochondroplasty and inspection and possible repair of her labrum. We discussed epidural anesthetic combined with general. We discussed use of hypotensive anesthesia to minimize blood loss blood allogenic blood transfusion is still a possibility. We discussed 2-3 day hospital stay. We also discussed 30 pounds foot flat weightbearing on the operative extremity with crutch use for 6 weeks. We discussed that patient will need a wheelchair for short distances up to 3 months and long distances up to 6 months depending on fatigue and recovery level. The natural history of dysplasia as well as details surrounding the procedure and postoperative recovery course were discussed with the patient and her family present. Nonoperative and operative treatment options were presented to the patient. After discussion, operative treatment was elected. Risks and benefits of surgery were discussed with the patient which include, but are not limited to, , infection, bleeding, neurologic damage, nonunion, malunion, posttraumatic arthritis, incomplete resolution of symptoms, failure of the operation, and others. The patient understood and elected to proceed. Natural History reviewed. All questions answered. ~He/She~ was in agreement with the plan. This note was created using voice recognition software and was not corrected for typographical or grammatical errors. documented in this encounter [facility] Work Phone: 03-07-2021 Note Attestation signed by Hiren Pacheco DO at 03/21/2021 11:09 AM ATTENDING NOTE: I reviewed the note from the resident /PA /MULTIPLE WIRE SAWYER and agree with the documentation unless otherwise indicated. Department of Obstetrics and Gynecology Delivery Discharge Summary Admission on 03/05/2021 7:10 AM ? Reason for Hospitalization: Scheduled primary csection at 39w3d for macrocephaly. ? Intrapartum Course: N/a Surgical Operations & Procedures: Date of delivery: 03/05/2021 Procedure: without labor Anesthesia: Spinal anesthesia; TAP block Laceration(s): n/a Delivery Complications: hemorrhage EBL: 1720 cc Pertinent Findings & Procedures: Information for the patient's : Kali Madden [[id number]] female Weight: 8 lb 2.2 oz (3.69 kg) Apgars: Information for the patient's : Kali Madden [[id number]] One Minute : 8 Five Minute : 8 Course: Uncomplicated : Live female over at [facility] Blood Type/Rh: A POS Antibody Screen: Antibody Screen Date Value Ref Range Status 03/05/2021 NEG NA Final Rubella: No results found for: RUBELLAIGG Contraception: no method : yes VTE Prophylaxis: Not Indicated Home Meds: Thais Madden Home Medication Instructions ANDREI:[id number] Printed on:03/07/21 7902 Medication Information aspirin 81 MG chewable tablet Take 81 mg by mouth daily [id number] ( #2 PO) Take 1 tablet by mouth daily Meds at Discharge: Medication List ASK your doctor about these medications aspirin 81 MG chewable tablet #2 PO Activity: Activity as tolerated Diet: Regular diet Follow-up Appointments: _x_ visit _x_ incision check __ blood pressure check __ blood sugar check/ 2-hr GTT _x_ depression screen __ other: Condition on discharge: Stable Discharge to: Home Discharge date: 03/07/21 Discharge Dx: 1. S/p primary LTCS at 39w3d 2. macrocephaly 3. H/o hip dysplasia Indication for care in labor and delivery, antepartum [O75.9] Patient Active Problem List Diagnosis ? Acute blood loss anemia ? Status post primary low transverse section Comments: Home care, Follow-up care and control were reviewed. Signs and symptoms of mastitis and Depression were reviewed. The patient is to notify her physician if any of these occur. [facility] 03-07-2021 History of Present illness Narrative Nutrition rescreen completed. Patient assigned a level 1. Images from the original note were not included. POST OPERATIVE DAY # 2 Thais Madden is a 30 y.o. who was seen & examined today. Her was complicated by: Patient Active Problem List Diagnosis Acute blood loss anemia Status post primary low transverse section Today she is doing well without any chief complaint. Her lochia is light. She denies chest pain, shortness of breath, headache, lightheadedness and blurred vision. She is ambulating well. Flatus present. Bowel movement absent. Voiding spontaneously. She is tolerating solids. Pain is controlled yes. Vital Signs: Vitals: 03/05/21 2357 03/06/21 0344 03/06/21 0752 03/06/212025 BP: 106/69 102/63 107/62 118/68 Pulse: 71 70 84 84 Resp: 18 18 20 Temp: 98.2 F (36.8 C) 97.7 F (36.5 C) 97.9 F (36.6 C) 98.6 F (37 C) TempSrc: Temporal Temporal Oral Temporal SpO2: 94% 97% 99% 100% Weight: Height: Urine Input & Output last 24hrs: No intake or output data in the 24 hours ending 03/07/21 0618 Physical Exam: General: no apparent distress, alert and cooperative Affect: appropriate Lungs: No increased work of breathing, good air exchange Abdomen: abdomen soft, non-distended, non-tender Fundus: non-tender, normal size, firm, below umbilicus Incision: Clean, dry, and intact Extremities: no calf tenderness, non edematous Labs: Lab Results Component Value Date WBC 14.2 (H) 03/05/2021 HGB 8.6 (L) 03/06/2021 HCT 29.2 (L) 03/05/2021 MCV 84.7 03/05/2021 PLT 138 (L) 03/05/2021 A POS Antibody Screen: Antibody Screen Date Value Ref Range Status 03/05/2021 NEG NA Final No results found for: RUBELLAIGG LABOR DELIVERY ??? SCD's ONLY (labor through ambulation) SCD's PLUS Prophylactic Anticoagulation until discharge SCD's PLUS Prophylactic Anticoagulation for 6 weeks SCD's PLUS Therapeutic Anticoagulation for 6 weeks Vaginal Delivery [] BMI ? 40 kg/m2 Delivery All patients Vaginal Delivery [] BMI ? 40 kg/m2 AND [] Antepartum hospitalization ? 72 hours within the past month Delivery 1 Major Risk Factor: [] BMI ? 35 kg/m2 [] Low Risk Thrombophilia [] PPH+RBCs, IR, or operation [] Infection+Antibiotics [] Antepartum hospitalization ? 72 hours within the past month [] PMH: Sickle Cell, SLE, Cardiac Dz, Active IBD, Active Cancer, Nephrotic Syndrome OR 2 Minor Risk Factors: [] Multiple gestation [] Age > 40 [] PPH ? 1,000cc [] (+)FMH of VTE [] Smoker [] Preeclampsia [] BMI ? 40 kg/m2 AND [] Low Risk Thrombophilia OR ANY OF THE FOLLOWING: [] High Risk Thrombophilia without prior VTE [] Low Risk Thrombophilia with (+)FMH of VTE [] Any single prior VTE ANY OF THE FOLLOWING: [] Already on LMWH/UFH [] Multiple prior VTE [] High Risk Thrombophilia with prior VTE Low Risk Thrombophilia: FVL (heterozygous), Prothrombin (heterozygous), Protein C, Protein S High Risk Thrombophilia: FVL (homozygous), Prothrombin (homozygous), FVL+Prothrombin (heterozygous), Antithrombin III, APLS Assessment/Plan: 1. Thais Madden is a 30 y.o. POD # 2 s/p PLTCS 2/2 Macrocephaly 2. Care - Doing well, VSS - Female , at [facility] - Breast feeding - Contraception: Per Private Attending - Encourage ambulation and use of incentive spirometer - VTE Prophylaxis: Not Indicated 3. Acute Blood Loss Anemia 2/2 PPH - Intraop QBL 1720ml 2/2 atony vs hysterotomy - No uterotonics had to be given - Hgb 8.6 yesterday AM - VSS and asymptomatic - Continue iron and colace 4. Hx Hip Dysplasia - Required labyrinth repair after delivery of first child - No issues this AM 5. Disposition: Patient desiring discharge home today, per private attending's discretion. Based on my clinical assessment, this patient is safe for self discharge (does not need transport by wheelchair) if she so chooses. Provider's Name: DO Luiza Nash DO 03/07/2021, 6:18 AM ATTENDING NOTE: I reviewed the note from the resident /PA /MULTIPLE WIRE SAWYER and agree with the documentation unless otherwise indicated. Pt is not in room and is probably over at [facility] where infant was transferred to after delivery. Patient up to bathroom. States voided without difficulty. Images from the original note were not included. POST OPERATIVE DAY # 1 Thais Madden is a 30 y.o. who was seen & examined today. Her was complicated by: Patient Active Problem List Diagnosis Indication for care in labor and delivery, antepartum Today she is doing well without any chief complaint. Her lochia is light. She denies chest pain, shortness of breath, headache, lightheadedness and blurred vision. She is ambulating well. Flatus present. Bowel movement absent. She is tolerating solids. Pain is controlled yes. Vital Signs: Vitals: 03/05/21 1403 03/05/21 2006 03/05/21 2357 03/06/21 0344 BP: 130/78 111/65 106/69 102/63 Pulse: 98 75 71 70 Resp: 16 19 18 18 Temp: 97 F (36.1 C) 97.9 F (36.6 C) 98.2 F (36.8 C) 97.7 F (36.5 C) TempSrc: Temporal Temporal Temporal Temporal SpO2: 100% 96% 94% 97% Weight: Height: Urine Input & Output last 24hrs: Intake/Output Summary (Last 24 hours) at 03/06/2021 0622 Last data filed at 03/06/2021 0446 Gross per 24 hour Intake 3200 ml Output 3120 ml Net 80 ml Physical Exam: General: no apparent distress, alert and cooperative Affect: appropriate Lungs: No increased work of breathing, good air exchange Abdomen: abdomen soft, non-distended, non-tender Fundus: non-tender, normal size, firm, below umbilicus Incision: Dressing remains in place Extremities: no calf tenderness, non edematous Labs: Lab Results Component Value Date WBC 14.2 (H) 03/05/2021 HGB 8.6 (L) 03/06/2021 HCT 29.2 (L) 03/05/2021 MCV 84.7 03/05/2021 PLT 138 (L) 03/05/2021 A POS Antibody Screen: Antibody Screen Date Value Ref Range Status 03/05/2021 NEG NA Final No results found for: RUBELLAIGG LABOR DELIVERY ??? SCD's ONLY (labor through ambulation) SCD's PLUS Prophylactic Anticoagulation until discharge SCD's PLUS Prophylactic Anticoagulation for 6 weeks SCD's PLUS Therapeutic Anticoagulation for 6 weeks Vaginal Delivery [] BMI ? 40 kg/m2 Delivery All patients Vaginal Delivery [] BMI ? 40 kg/m2 AND [] Antepartum hospitalization ? 72 hours within the past month Delivery 1 Major Risk Factor: [] BMI ? 35 kg/m2 [] Low Risk Thrombophilia [] PPH+RBCs, IR, or operation [] Infection+Antibiotics [] Antepartum hospitalization ? 72 hours within the past month [] PMH: Sickle Cell, SLE, Cardiac Dz, Active IBD, Active Cancer, Nephrotic Syndrome OR 2 Minor Risk Factors: [] Multiple gestation [] Age > 40 [x] PPH ? 1,000cc [] (+)FMH of VTE [] Smoker [] Preeclampsia [] BMI ? 40 kg/m2 AND [] Low Risk Thrombophilia OR ANY OF THE FOLLOWING: [] High Risk Thrombophilia without prior VTE [] Low Risk Thrombophilia with (+)FMH of VTE [] Any single prior VTE ANY OF THE FOLLOWING: [] Already on LMWH/UFH [] Multiple prior VTE [] High Risk Thrombophilia with prior VTE Low Risk Thrombophilia: FVL (heterozygous), Prothrombin (heterozygous), Protein C, Protein S High Risk Thrombophilia: FVL (homozygous), Prothrombin (homozygous), FVL+Prothrombin (heterozygous), Antithrombin III, APLS Assessment/Plan: 1. Thais Madden is a 30 y.o. POD # 1 s/p PLTCS 2/2 Macrocephaly 2. Care - Doing well, VSS - Female , at [facility] - Breast feeding - Contraception: Per Private Attending - Encourage ambulation and use of incentive spirometer - D/C agrrison catheter and saline lock IV on POD #1 - Postop Hb 8.6 - VTE Prophylaxis: Not Indicated 3. Acute Blood Loss Anemia 2/2 PPH - Intraop QBL 1720ml 2/2 atony vs hysterotomy - No uterotonics had to be given - Hgb 8.6 this AM - VSS and asymptomatic - Iron and colace ordered 4. Postop Urinary Retention - Garrison catheter was removed around 1800 last night and patient insisted on going to [facility] immediately afterwards, when returned only voided small amount - Bladder scan at 0430 indicated 748cc so straight cath performed - Has not yet voided spontaneously this AM - Encourage PO Hydration and monitor for spontaneous void 5. Hx Hip Dysplasia - Required labyrinth repair after delivery of first child - No issues this AM 6. Disposition: Continue current care Based on my clinical assessment, this patient is safe for self discharge (does not need transport by wheelchair) if she so chooses. Provider's Name: DO Luiza Nash DO 03/06/2021, 6:22 AM Attestation Statement I saw and evaluated the patient. I agree with the findings and plans of the resident physician, and agree as documented in her note . Doing well POD#1, awaiting spontaneous void. Continue current management. Pass to A[facility] placed. I spent 15 minutes in the visit, with more than 50% of the total [id number] time of the visit in counseling/coordination of care. Per Dr Stanley, ok for patient to leave to [facility] without voiding but needs to be back in 2-3 hours. Nurse will inform patient Dr Stanley stated she will check with attending about when mom can visit baby after garrison removal. Nurse also asked if patient was not able to leave tonight, if resident could come up and explain that to patient. Waiting for response. Nurse paged resident again stating garrison was removed and again asked if pt could visit [facility] at [facility]. Dr Stanley stated that her IV needed to come out and patient needed to void before she could leave. Nurse clarified with resident that patient has 8 hours to void after garrison removal and asking if that means patient can not visit baby tonight? Paged Dr Stanley again stating hgb level now 9.7, nurse asked again if patient can go see her baby at [facility]. Dr michelet garrison needed to be removed first. Pt asking if she can get a therapeutic pass once she ambulates 8 hours after delivery which is 1800. Nurse paged Dr Stanley. Received a call from Dr Mercedes stating we need a CBC and results before she can go. Transport team at with baby. Plant Protection Supervisor at talking with pt about POC. Baby will be in with transport team shortly for pt to see baby. documented in this encounter [facility] Work Phone: 03-05-2021 Hospital Discharge instructions Hiren Pacheco, - 03/05/2021 Images from the original note were not included. After Your Delivery (the Period): Your Care Instructions Congratulations on the of your baby. Like , the period can be a time of excitement, mulugeta, and exhaustion. You may look at your wondrous little baby and feel happy. You may also be overwhelmed by your new sleep hours and new responsibilities. In these first weeks after delivery, try to take good care of yourself. It may take 4 to 6 weeks to feel like yourself again, and possibly longer if you had a . You will likely feel very tired for several weeks. Your days will be full of ups and downs, but lots of mulugeta as well. FOLLOW-UP: Your follow-up care is a vasquez part of your treatment and safety. Follow-up with your OB doctor in 4-6 weeks or as specified by your physician. Be sure to make and go to all appointments, and call your doctor if you are having problems. It's also a good idea to know your test results and keep a list of the medicines you take. BLEEDING Vaginal bleeding will decrease in amount over the next few weeks but be present for as long as 8 weeks after delivery. Bleeding may fruit picker machine operator and then decrease again around 7-10 days . Use pads instead of tampons for the bloody flow that may last as long as 2 weeks. You will notice that as your activity increases, your flow may increase. Call your doctor if you are saturating one maxi pad in an hour & passing large clots for 3 hours or more. ACTIVITY NO SEXUAL activity for 6 weeks or until advised by your doctor. Nothing in the vagina for 6 weeks: e.g.) intercourse, tampons, or douching. Showering is okay; NO tub baths, swimming, or hot tubs for 6 weeks. Gradually increase your activity. Resume exercise regimen only after advice by your doctor. Avoid lifting anything heavier than your baby or a gallon of milk for six weeks. Avoid driving 1 week for vaginal delivery and 2 weeks for section, or longer if you are on prescription pain medicine unless otherwise instructed by your doctor. Rise slowly from a lying to sitting and then a standing position. Climb stairs carefully. Use caution when carrying your baby up and down the stairs. You may feel tired or have a lack of energy. Nap when baby naps to catch up on sleep. You may continue your vitamin to replenish nutrients post delivery. EMOTIONS You may feel bansal, sad, teary, & overwhelmed for the first 2 weeks ; however, feelings of post depression may occur any time within the first year after delivery. Contact your OB provider if you feel you may be showing signs of depression, or have thoughts of harming yourself or your . If will not stop crying, contact another adult for help or place infant in their crib on their back and take a break. NEVER shake your infant. WOUND CARE For Vaginal Delivery: Shower daily, and cleanse your perineum (bottom) with mild soap from front to Back. Use the plastic squirt bottle until bleeding stops each time you use the restroom instead of wiping with toilet paper. Ease soreness of hemorrhoids and the area between your vagina and rectum with ice compresses or witch bertrand pads. If used, stitches will dissolve in 4-6 weeks on their own. You may use a sitz bath or soak in a clean tub with drain open and water running for comfort. Kegel exercises will help restore bladder control. To do these tighten your muscles as if you were stopping your urine flow. Hold for a few seconds and then relax. Do these throughout the day. For Section Delivery: Keep your incision clean and dry. If you had steri-strips you may remove these once they start peeling off. If you have alex they need to be removed 3-10 days after delivery. If you have steri-strips, remove after 10-14 days. Do not wear clothing that irritates the incision line. If your incision in in a crease that is not dry, use a hair-dryer to dry the area 3 times a day. If you develop fever, shaking chills, redness, swelling, drainage or discharge from your wound, or if your wound looks like it's coming apart call your doctor immediately. For Tubal Ligation: Remove dressing 3 days after being discharged from the hospital. If you develop fever, shaking chills, redness, swelling, drainage or discharge from your wound, or if your wound looks like it's coming apart call your doctor immediately. BREAST CARE If you develop a warm, red, tender area on your breast or develop a fever contact your doctor. For moms: If you become engorged, feeding may be more difficult or painful for 1-2 days. You may find it helpful to hand express some milk so that the infant can latch on more easily or ease soreness with wet, warm washcloths. While , continue to take your vitamins as directed by your doctor. For non- moms: You may apply ice packs to your breasts over you bra for twenty minutes at a time for comfort. Cabbage leaves may be applied to breasts, replace when wilted. Avoid stimulation to your breasts, when showering allow the water to strike your back not your breasts. Do not express milk or your body will make more. Wear a good fitting bra until your milk dries, such as a sports bra. DIET & CONSTIPATION Eat a well balanced diet focusing on foods high in fiber and protein such as: whole grain cereals and breads, fruits and vegetables and legumes (eg, beans, lentils) Drink 8-10 glasses of fluids daily, especially water. To avoid constipation you may take a mild fmri-nkl-mzgmlbw stool softener (such as colace) as recommended by your doctor. SWELLING Try to keep your legs elevated when you are sitting or lying down. Stay hydrated and take walks. BABY Babies sleep safest on their back in a crib without bumpers, blankets or stuffed animals. DO NOT sleep with your baby in your bed or the couch. DO NOT expose baby to smoke, this can increase risks of asthma and sudden infant syndrome. If you or someone around baby smokes have them change their shirt and wash any facial hair before holding baby. Do not smoke inside the house and change the ventilation filters in the house before bringing baby home. WHEN TO CALL THE DOCTOR Signs of infection, including fever (101oF) and chills. Increased bleeding: soaking more than one sanitary pad an hour. Wounds that become red, swollen or drain pus. Vaginal discharge that smells foul. Headaches that lasts several hours and will not go away even with headache medications. Visual changes that last several hours and will not go away. Significant pain immediately below your rib cage. New pain, swelling, or tenderness in your legs Pain that you can't control with the medications you've been given. Pain, burning, urgency or frequency of urination, or persistent bleeding in the urine. Cough, shortness of breath, or chest pain. Depression, suicidal thoughts, or feelings of harming your baby. Breasts that are hot, red and accompanied by fever. Any cracking or bleeding from the nipple or areola (the dark-colored area of the breast). In case of an emergency, call 911 immediately. If you are Covid-19 positive or a Person Under Investigation (PUI) Sepigm-vd-whadn transmission of COVID-19 during is unlikely, but after a baby is susceptible to ivqkda-un-aslkqe spread. After your baby is born, your health care provider may recommend you not hold your baby and/or that you stay in a separate room from your baby until you get better. If you and your baby are not , wear a facemask at all times and wash your hands thoroughly before touching, holding or feeding your baby. Baby Care & Feeding has many benefits for you and your baby and is the best food for your baby. From what experts know so far, COVID-19 has not been found in breastmilk. Having a healthy adult who can assist with baby care until you get better is important, you may want to have a healthy adult feed your baby your expressed breast milk or formula if you chose to not breastfeed. You may use a breast pump to express your breast milk. Wear a face mask, wash your breasts, then wash your hands thoroughly before touching the breast pump and bottle parts. Clean all pump parts after each use. If you choose to breastfeed from your breast, wear a face mask, wash your breasts, wash your hands thoroughly before feeding your baby. These could be signs that your COVID-19 symptoms are worsening and you may need emergency care: You are severely dizzy or lightheaded. You are confused or can't think clearly. Your face and lips have a blue color. You are unable to respond to others or are very hard to wake up. Prevention steps for People with confirmed or suspected COVID-19 (including persons under investigation) who do not need to be hospitalized AND People with confirmed COVID-19 who were hospitalized and determined to be medically stable to go home Your healthcare provider and public health staff will evaluate whe ther you can be cared for at home. If it is determined that you do not need to be hospitalized and can be isolated at home, you will be monitored by staff from your local or state health department. You should follow the prevention steps below until a healthcare provider or local or state health department says you can return to your normal activities. Stay home except to get medical care People who are mildly ill with COVID-19 are able to isolate at home during their illness. You should restrict activities outside your home, except for getting medical care. Do not go to work, school, or public areas. Avoid using public transportation, ride-sharing, or taxis. Separate yourself from other people and animals in your home People: As much as possible, you should stay in a specific room and away from other people in your home. Also, you should use a separate bathroom, if available. Animals: You should restrict contact with pets and other animals while you are sick with COVID-19, just like you would around other people. Although there have not been reports of pets or other animals becoming sick with COVID-19, it is still recommended that people sick with COVID-19 limit contact with animals until more information is known about the virus. When possible, have another member of your household care for your animals while you are sick. If you are sick with COVID-19, avoid contact with your pet, including petting, snuggling, being kissed or licked, and sharing food. If you must care for your pet or be around animals while you are sick, wash your hands before and after you interact with pets and wear a facemask. Call ahead before visiting your doctor If you have a medical appointment, call the healthcare provider and tell them that you have or may have COVID-19. This will help the healthcare provider's office take steps to keep other people from getting infected or exposed. Wear a facemask You should wear a facemask when you are around other people (e.g., sharing a room or vehicle) or pets and before you enter a healthcare provider's office. If you are not able to wear a facemask (for example, because it causes trouble breathing), then people who live with you should not stay in the same room with you, or they should wear a facemask if they enter your room. Cover your coughs and sneezes Cover your mouth and nose with a tissue when you cough or sneeze. Throw used tissues in a lined trash can. Immediately wash your hands with soap and water for at least 20 seconds or, if soap and water are not available, clean your hands with an alcohol-based hand shale planer operator that contains at least 60% alcohol. Clean your hands often Wash your hands often with soap and water for at least 20 seconds, especially after blowing your nose, coughing, or sneezing; going to the bathroom; and before eating or preparing food. If soap and water are not readily available, use an alcohol-based hand shale planer operator with at least 60% alcohol, covering all surfaces of your hands and rubbing them together until they feel dry. Soap and water are the best option if hands are visibly dirty. Avoid touching your eyes, nose, and mouth with unwashed hands. Avoid sharing personal household items You should not share dishes, drinking glasses, cups, eating utensils, towels, or bedding with other people or pets in your home. After using these items, they should be washed thoroughly with soap and water. Clean all high-touch surfaces everyday High touch surfaces include counters, tabletops, doorknobs, bathroom fixtures, toilets, phones, keyboards, tablets, and bedside tables. Also, clean any surfaces that may have blood, stool, or body fluids on them. Use a household cleaning spray or wipe, according to the label instructions. Labels contain instructions for safe and effective use of the cleaning product including precautions you should take when applying the product, such as wearing gloves and making sure you have good ventilation during use of the product. Monitor your symptoms Seek prompt medical attention if your illness is worsening (e.g., difficulty breathing). Before seeking care, call your healthcare provider and tell them that you have, or are being evaluated for, COVID-19. Put on a facemask before you enter the facility. These steps will help the healthcare provider's office to keep other people in the office or waiting room from getting infected or exposed. Ask your healthcare provider to call the local or state health department. Persons who are placed under active monitoring or facilitated self-monitoring should follow instructions provided by their local health department or occupational health professionals, as appropriate. When working with your local health department check their available hours. If you have a medical emergency and need to call 911, notify the dispatch personnel that you have, or are being evaluated for COVID-19. If possible, put on a facemask before emergency medical services arrive. Discontinuing home isolation Patients with confirmed COVID-19 should remain under home isolation precautions until the risk of secondary transmission to others is thought to be low. The decision to discontinue home isolation precautions should be made on a wowr-qw-wmww basis, in consultation with healthcare providers and state and local health departments. Information on COVID-19 for ALL patients Call your provider before your next appointment if you develop any of the following symptoms: fever, cough, fatigue, anorexia, shortness of breath, sputum production, and muscle pains. Headache, confusion, rhinorrhea, sore throat, hemoptysis, vomiting, and diarrhea have been reported but are less common. Some persons with COVID-19 have experienced gastrointestinal symptoms such as diarrhea and nausea prior to developing fever and lower respiratory tract signs and symptoms. Ways to [place] with Anxiety & Stress It is normal to feel anxious or worried about COVID-19. You might feel sad about canceling celebrations and staying away from family and friends. Keep in mind that most people do not get severely ill from COVID-19. It is important to have a plan in case you get sick to prevent spreading the disease to others including an Advanced Care Plan (communicating and documenting your desired health care plan with family and healthcare team). You can take care of yourself by: o Taking a break from watching the news o Take deep breaths, stretch or meditate o Getting exercise, eating healthy foods, and drinking plenty of water o Finding activities you can enjoy inside your home o Staying in touch with your family and friends. Tell your partner, family, and friends how you are feeling. Advance Care Planning People with COVID-19 may have no symptoms, mild symptoms, such as fever, cough, and shortness of breath or they may have more severe illness, developing severe and fatal pneumonia. As a result, Advance Care Planning with attention to naming a health care decision maker (someone you trust to make healthcare decisions for you if you could not speak for yourself) and sharing other health care preferences is important BEFORE a possible health crisis. Please contact your Primary Care Provider to discuss Advance Care Planning. LEARNING ABOUT THE CORONAVIRUS (COVID-19): Coronavirus (COVID-19): Overview What is coronavirus (COVID-19)? The coronavirus disease (COVID-19) is caused by a virus. It is an illness that was first found in [facility], in July 2019. It has since spread worldwide. The virus can cause fever, cough, and trouble breathing. In severe cases, it can cause pneumonia and make it hard to breathe without help. It can cause . Coronaviruses are a large group of viruses. They cause the common cold. They also cause more serious illnesses like [place] respiratory syndrome (MERS) and severe acute respiratory syndrome (SARS). COVID-19 is caused by a novel coronavirus. That means it's a new type that has not been seen in people before. This virus spreads ytksiq-zl-crdmgx through droplets from coughing and sneezing. It can also spread when you are close to someone who is infected. And it can spread when you touch something that has the virus on it, such as a doorknob or a tabletop. What can you do to protect yourself from coronavirus (COVID-19)? The best way to protect yourself from getting sick is to: Avoid areas where there is an outbreak. Avoid contact with people who may be infected. Wash your hands often with soap or alcohol-based hand sanitizers. Avoid crowds and try to stay at least 6 feet away from other people. Wash your hands often, especially after you cough or sneeze. Use soap and water, and scrub for at least 20 seconds. If soap and water aren't available, use an alcohol-based hand shale planer operator. Call 911 anytime you think you may need emergency care. For example, call if: You have severe trouble breathing. (You can't talk at all.) You have constant chest pain or pressure. You are severely dizzy or lightheaded. You are confused or can't think clearly. Your face and lips have a blue color. You pass out (lose consciousness) or are very hard to wake up. Call your doctor now if you develop symptoms such as: Shortness of breath. Fever. Cough. If you need to get care, call ahead to the doctor's office for instructions before you go. Make sure you wear a face mask, if you have one, to prevent exposing other people to the virus. Where can you get the latest information? The following health organizations are tracking and studying this virus. Their websites contain the most up-to-date information. You'll also learn what to do if you think you may have been exposed to the virus. [place]. Centers for Disease Control and Prevention (CDC): The CDC provides updated news about the disease and travel advice. The website also tells you how to prevent the spread of infection. www.cdc.gov World Health Organization (WHO): WHO offers information about the virus outbreaks. WHO also has travel advice. www.who.int Current as of: November 09, 2019 Content Version: 12.4 [employer]. Care instructions adapted under license by your healthcare professional. If you have questions about a medical condition or this instruction, always ask your healthcare professional. [employer] disclaims any warranty or liability for your use of this information. General Recommendations for Routine Cleaning and Disinfection of Households Community members can practice routine cleaning of frequently touched surfaces (for example: tables, doorknobs, light switches, handles, desks, toilets, faucets, sinks) with household pillar man and EPA-registered disinfectants that are appropriate for the surface, following label instructions. Labels contain instructions for safe and effective use of the cleaning product including precautions you should take when applying the product, such as wearing gloves and making sure you have good ventilation during use of the product. These guidelines are focused on household settings and are meant for the general public. Cleaning refers to the removal of germs, dirt, and impurities from surfaces. Cleaning does not kill germs, but by removing them, it lowers their numbers and the risk of spreading infection. Disinfecting refers to using chemicals to kill germs on surfaces. This process does not necessarily clean dirty surfaces or remove germs, but by killing germs on a surface after cleaning, it can further lower the risk of spreading infection. General Recommendations for Cleaning and Disinfection of Households with People Isolated in Home Care - Confirmed or suspected COVID 19 Household members should educate themselves about COVID-19 symptoms and preventing the spread of COVID-19 in homes. Clean and disinfect high-touch surfaces daily in household common areas (e.g. tables, hard-backed chairs, doorknobs, light switches, remotes, handles, desks, toilets, sinks) o In the bedroom/bathroom dedicated for an ill person: consider reducing cleaning frequency to as-needed (e.g., soiled items and surfaces) to avoid unnecessary contact with the ill person. - As much as possible, an ill person should stay in a specific room and away from other people in their home. - The caregiver can provide personal cleaning supplies for an ill person's room and bathroom, unless the room is occupied by child or another person for whom such supplies would not be appropriate. These supplies include tissues, paper towels, pillar man and EPA-registered disinfectants (see list link at [facility] website). - If a separate bathroom is not available, the bathroom should be cleaned and disinfected after each use by an ill person. If this is not possible, the caregiver should wait as long as practical after use by an ill person to clean and disinfect the high-touch surfaces. How to clean and disinfect: Hard Surfaces Wear disposable gloves when cleaning and disinfecting surfaces. Gloves should be discarded after each cleaning. If reusable gloves are used, those gloves should be dedicated for cleaning and disinfection of surfaces for COVID-19 and should not be used for other purposes. Consult the copping machine operator's instructions for cleaning and disinfection products used. Clean hands immediately after gloves are removed. If surfaces are dirty, they should be cleaned using a detergent or soap and water prior to disinfection. For disinfection, diluted household bleach solutions, alcohol solutions with at least 70% alcohol, and most common EPA-registered household disinfectants should be effective. o Diluted household bleach solutions can be used if appropriate for the surface. Follow copping machine operator's instructions for application and proper ventilation. Check to ensure the product is not past its expiration date. Never mix household bleach with ammonia or any other cleanser. Unexpired household bleach will be effective against coronaviruses when properly diluted. - Prepare a bleach solution by mixing: - 5 tablespoons (1/3rd cup) bleach per gallon of water or - 4 teaspoons bleach per quart of water o Products with EPA-approved emerging viral pathogens [facility] icon are expected to be effective against COVID-19 based on data for harder to kill viruses. Follow the copping machine operator's instructions for all cleaning and disinfection products (e.g., concentration, application method and contact time, etc.). Soft (porous) surfaces such as carpeted floor, rugs, and drapes Remove visible contamination if present and clean with appropriate pillar man indicated for use on these surfaces. After cleaning: Launder items as appropriate in accordance with the copping machine operator's instructions. If possible, launder items using the warmest appropriate water setting for the items and dry items completely, or Clothing, towels, linens and other items that go in the laundry Wear disposable gloves when handling dirty laundry from an ill person and then discard after each use. If using reusable gloves, those gloves should be dedicated for cleaning and disinfection of surfaces for COVID-19 and should not be used for other household purposes. Clean hands immediately after gloves are removed. o If no gloves are used when handling dirty laundry, be sure to wash hands afterwards. o If possible, do not shake dirty laundry. This will minimize the possibility of dispersing virus through the air. o Launder items as appropriate in accordance with the copping machine operator's instructions. If possible, launder items using the warmest appropriate water setting for the items and dry items completely. Dirty laundry from an ill person can be washed with other people's items. o Clean and disinfect clothes hampers according to guidance above for surfaces. If possible, consider placing a baggage screener that is either disposable (can be thrown away) or can be laundered. [facility] has a list of EPA approved cleaning products on their website - https://www.cdc.gov/coronavirus/2 019-ncov/community/home/cleaning- disinfection.html https://www.[employer] /Xhpel-Ngsubxmmdkn-Xuwqdlfd-Produ cts-List.pdf documented in this encounter [facility] Work Phone: 01-18-2021 Note Maternal- Medic ine Consultation Note Requested by: Bree Copeland Md [address] [phone] CC: Thais Madden is 30 y.o. at 32w6d. She presented today for f/up abnormality and discussion of infection testing results. This is a new problem to me during today's visit. HPI: Thais Madden is 30 y.o. at 32w6d. 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 She has undergone consultation with Neurology and has an upcoming consultation with Neurosurgery 01/29/[address] Escobar. She has not yet had a NICU consultation. The was complicated by earlier COVID-19 infection. Labs were sent for CMV and Parvo previously. Toxoplasma IgG and IgM have not been sent. She is interested in discussing more about the delivery plan, timing and mode. She reports she has recurrent Bartholin's gland dilation but is not having symptoms suggesting infection at this time. 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 M/S - occasional back pain, denies leg cramps. OB / - occasional contractions, no abdominal pain, leaking of fluid, decreased movement, vaginal bleeding. Otherwise negative as reviewed in HPI. Physical Examination: BP 96/61 Wt 82.4 kg (181 lb 9.6 oz) BMI 29.61 kg/m Calculated Body mass index is 29.61 kg/m . as calculated from the following: Last Height entered for this encounter: Last Weight entered for this encounter: 82.4 kg (181 lb 9.6 oz) Total weight gain: 9.526 kg (21 lb) General appearance: alert, well appearing, and in no distress, oriented to person, place, and time and normal appearing weight. Chest: no tachypnea, retractions or cyanosis. Abdominal exam: soft, nontender, nondistended, no masses or organomegaly. Exam of extremities: no pedal edema noted Medications Current Outpatient Medications on File Prior to Visit Medication Sig Dispense Refill aspirin EC (ECOTRIN LOW STRENGTH) 81 MG EC tablet Take 81 mg by mouth daily Vit-Fe Fumarate-FA ( VITAMIN PO) Take by mouth No current facility-administered medications on file prior to visit. Last Laboratory Values No results found for: HGB, HCT, MCV, PLT, ABORH, CREATININE, AST, ALT, URICACID, LABCREA, CREATUR, PROTURRANDOM MRI Result: (12/18/2020) Severe bilateral ventriculomegaly, associated with parenchymal thinning. Small/tiny nodular foci along the ventricular margins anteriorly. Consider the possibility of intrauterine infection. Ultrasound Findings: 1. Richard intrauterine at 32w6d by clinical PRIYA. 2. Normal growth for gestational age, EFW 2139 g (51%)and AC 37%. BPD 87.7mm 3. Normal amniotic fluid index, 16.9 cm. 4. Normal anterior placenta, no evidence of placenta previa. 5. Reassuring status, BPP 8/8. 6. anatomy was not the focus of today's ultrasound, however previously noted hydrocephalus has increased with lateral ventricles R 28.6mm L 36.3mm. There is cortical thinning bilaterally. For complete details please see separate ultrasound report. Assessment 30 y.o. at 32w6d. 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 No VM seen. No abnormally shaped ventricle. Corpus callosum not well visualized (limitation due to early GA for MRI) 11/16/20: Subjectively prominent ventricles bilaterally with abnormally shaped choroid plexus (appears clumped and dangling). However, LV measure 0.8-0.95cm, still normal range. CSP is narrow, but seems to (more content not included)... [facility] 12-27-2020 Note Ms Thais Madden is b eing referred form Maternal Medicine for a Neurology Consultation. She was accompanied here today along with her . She had a MRI of the brain at 19 weeks as there ws concerns for absent corpus callosum and large ventricles. She had a repeat MRI today at 29 weeks. This is her second . She has a healthy toddler. I have reviewed the MRI today, the radiologist read in pending. The brain in the MRI shows significant cerebral ventriculomegaly in the lateral and third ventricle, the fourth ventricle appears normal. 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 This ventriculomegaly makes it difficult to visualize the Coprus callosum. 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 The baby will need a shunt placed after , she will need a C section for delivery as the head size will continue to increase. Some babies in this situation will have a near normal life after shunt placement. There is some risk of the baby having developmental delay, seizures and poor neurologic outcome. Close monitoring with ultrasounds is recommended. At this time there is no intervention available to be offered to reverse / slow this process. I have discussed MRI with Dr. Molina (neurosurgeon) today. I have referred Thais to our Neurosurgeon and made a appointment. I spent ample time answering family's questions and have encouraged them to call me if they have any questions. The duration of the office visit was 60 minutes, with >; 50% of the time spent with education and counseling. I will see the baby after . I discussed the about with the [facility] Chief complaint Narrative - Reported Patient here for initial evaluation of Right Hip Pain. New x-rays today, MRI disc imported to PACS. -Segetis- [id number]-Acjwwdlpcvyi-Zgezckqa d [id number] DO Work Phone: Chief complaint Narrative - Reported Patient here for initial evaluation of Right Hip Pain. New x-rays today, MRI disc imported to PACS. 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- Primary Other congenital deformity of hip (joint) documented in this encounter [facility] Work Phone: Evaluation note* Diagnosis Right hip impingement syndrome- Primary Congenital hip dysplasia- Primary Other congenital deformity of hip (joint) documented in this encounter [facility] Work Phone: Evaluation note* Diagnosis Other specified congenital deformities of hip Other specified joint disorders, right hip Congenital hip dysplasia- Primary Other congenital deformity of hip (joint) Congenital hip dysplasia Other congenital deformity of hip (joint) documented in this encounter [facility] Work Phone: Evaluation note* Diagnosis Congenital hip dysplasia- Primary Other congenital deformity of hip (joint) Preoperative examination Unspecified pre-operative examination Congenital hip dysplasia Other congenital deformity of hip (joint) Tear of right acetabular labrum, initial encounter- Primary Femoroacetabular impingement of right hip documented in this encounter [facility] Work Phone: Evaluation note* Diagnosis Congenital hip dysplasia- Primary Other congenital deformity of hip (joint) 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 Congenital hip dysplasia Other congenital deformity of hip (joint) Hip osteoarthritis Tear of right acetabular labrum, initial encounter- Primary Femoroacetabular impingement of right hip documented in this encounter [facility] Work Phone: Evaluation note* Diagnosis Congenital hip dysplasia Other congenital deformity of hip (joint) Tear of right acetabular labrum, initial encounter- Primary Femoroacetabular impingement of right hip documented in this encounter [facility] Work Phone: Evaluation note* Diagnosis Congenital hip dysplasia- Primary Other congenital deformity of hip (joint) Congenital hip dysplasia Other congenital deformity of hip (joint) Tear of right acetabular labrum, initial encounter- Primary Femoroacetabular impingement of right hip documented in this encounter [facility] Work Phone: Evaluation note* Diagnosis Bacterial sinusitis- Primary Unspecified sinusitis (chronic) [facility] NarrativeThis is a 32-year-old female that comes to see me today for chief complaint of right hip pain. Patient had surgery in 2019 in the form of an arthroscopy of her right hip at the [facility]. She began having pain in 2019. She says the pain is mostly in her groin though she does have some lateral discomfort. She said she did well for a little less than a year after that surgery and then had increasing pain that she currently rates at about a 4-5 out of 10 on a daily basis with most activities o f life. She recently saw her original treating provider who ordered a new MRI scan that showed recurrence of her labral tearing and she was told that she has hip dysplasia and was sent to us for possible revision surgery she has done extensive physical therapy for a year twice weekly under the guidance of a physical therapist has utilized anti-inflammatories and modified her activities but continues to have pain.[id number]-[id number] [id number] DO Work Phone: Advance Directives No Advanced Directives Records FoundLatest Code Status on File Code Status Date Activated Date Inactivated Comments Full Code 03/05/2021 1:51 PM Full Code 03/05/2021 8:17 AM 03/05/2021 1:51 PM Summary Purpose Family History No Family History Records FoundNo Family History Records FoundNo Family History Records FoundNo Family History Records FoundNo Family History Records FoundNo Family History Records FoundNo Family History Records Found Reason for Referral Specialty Diagnoses / Procedures Referred By Contac t Referred To Contact Radiology Diagnoses Other specified joint disorders, right hip Other specified congenital deformities of hip Procedures CT 3D reconstruction Pee Bailey MD [address] [place] [id number] [place] [address] Referral ID Status Reason Start Date Expiration Date Visits Requested Visits Authorized [id number] Pending Review Perform Procedure 05/08/2023 11/04/2023 1 1 Specialty Diagnoses / Procedures Referred By Contac t Referred To Contact Radiology Diagnoses Other specified congenital deformities of hip Procedures CT pelvis wo IV contrast Pee Bailey MD [address] [place] [address] Referral ID Status Reason Start Date Expiration Date Visits Requested Visits Authorized [id number] Authorized Perform Procedure 04/29/2023 10/26/2023 1 1 Specialty Diagnoses / Procedures Referred By Contac t Referred To Contact Radiology Diagnoses Congenital hip dysplasia Procedures XR pelvis 1-[place] [address] [address] [facility] [place] [address] Referral ID Status Reason Start Date Expiration Date Visits Requested Visits Authorized [id number] Authorized Perform Procedure 3 06/08/2024 1 1 Referral ID Status Reason Start Date Expiration Date Visits Requested Visits Authorized [id number] Authorized Perform Procedure 05/08/2023 11/04/2023 1 1 Specialty Diagnoses / Procedures Referred By Lala t Referred To Contact Radiology Diagnoses Congenital hip dysplasia Procedures XR hip right with pelvis when performed 2 or 3 views Adilene Gomez PA-C [address] [address] Department [place] [address] Referral ID Status Reason Start Date Expiration Date Visits Requested Visits Authorized [id number] Authorized Perform Procedure 09/01/2023 08/31/2024 1 1 Additional Source Comments Ordered Prescriptions (unrec ognized section and content) Scheduled Active and Recently Administ ered Medications (unrecognized section and content) Continuous Medication Order 03/05/2021 03/06/2021 03/07/2021 lactated ringers infusion (CANCELED) Intravenous, at 125 mL/hr, CONTINUOUS, Starting on Thu03/05/21 at 0845, Labor and Delivery (Signed and Held) 0815 (New Bag - Provider: Elisabet Henderson RN) PRN Medication Order 03/05/2021 03/06/2021 03/07/2021 0.9 % sodium chloride infusion 25 mL, Intravenous, at 100 mL/hr, PRN, If patient receiving piggyback infusions without ordered maintenance IV fluids or with frequent/long duration piggyback infusions, Starting on Thu03/05/21 at 1351, Administer at the same rate as the piggyback being infused., acetaminophen (TYLENOL) tablet 650 mg 650 mg, Oral, EVERY 6 HOURS PRN, Pain Mild (1-3), Starting on Thu03/05/21 at 1351, Maximum dose of acetaminophen is 4000 mg from all sources in 24 hours., 0337 (Given - Provider: Trudy Estrella, DORITA)1006 (Given - Provider: Monique Glez, DORITA)2018 (Given - Provider: Marley Miramontes, DORITA) 0622 (Given - Provider: Marley Miramontes, DORITA)1230 (Given - Provider: Radha Simpson RN) diphenhydrAMINE (BENADRYL) injection 25 mg (CANCELED) 25 mg, Intravenous, EVERY 6 HOURS PRN, Itching, Hives, Starting on Thu03/05/21 at 1153, 1157 (Given - Provider: Elisabet Henderson RN) diphenhydrAMINE (BENADRYL) tablet 25 mg 25 mg, Oral, EVERY 6 HOURS PRN, Itching, Starting on Thu03/05/21 at 2341 2358 (Given - Provider: Trudy Estrella RN) HYDROmorphone (DILAUDID) injection 0.25 mg(Linked Group 1) 0.25 mg, Intravenous, EVERY 3 HOURS PRN, Pain Moderate (4-6), Starting on Thu03/05/21 at 2330, If oral and IV narcotics ordered, use oral first and only use IV if oral is ineffective or cannot take oral. Do Not give oral and IV within 1 hour of each other unless specifically ordered., HYDROmorphone (DILAUDID) injection 0.5 mg(Linked Group 1) 0.5 mg, Intravenous, EVERY 3 HOURS PRN, Pain Severe (7-10), Starting on Thu03/05/21 at 2330, If oral and IV narcotics ordered, use oral first and only use IV if oral is ineffective or cannot take oral. Do Not give oral and IV within 1 hour of each other unless specifically ordered., lansinoh lanolin ointment Topical, EVERY 1 HOUR PRN, Dry Skin, nipple discomfort, Starting on Thu03/05/21 at 1351, nalbuphine (NUBAIN) injection 5 mg 5 mg, Intravenous, EVERY 4 HOURS PRN, Other, Itching not relieved by benadryl, Starting on Thu03/05/21 at 1351, Do not administer to patients with current narcotic addiction., naloxone (NARCAN) injection 0.4 mg 0.4 mg, Intravenous, PRN, Opioid Reversal, Starting on Thu03/05/21 at 1351, PRN if respiratory rate is < 6/min or patient is difficult to arouse. Mix 9 mL of sodium chloride 0.9% with 0.4 mg (1 mL) of naloxone (NARCAN) in 10 mL syringe. (Note: dilution is 0.04 mg/mL) Give 0.08 mg (2 mL of special dilution), slow IV push, repeat up to 0.4 mg (10 mL) or until patient is responsive to physical stimulation and is able to take deep breaths. Continue to observe, if no response within 3 minutes of administration of 0.4 mg (10 mL) total, repeat dose (0.4 mg as administered previously) and notify physician STAT., ondansetron (ZOFRAN) injection 4 mg 4 mg, Intravenous, EVERY 6 HOURS PRN, Nausea, Starting on Thu03/05/21 at 1351, oxyCODONE (ROXICODONE) immediate release tablet 10 mg(Linked Group 2) 10 mg, Oral, EVERY 4 HOURS PRN, Pain Severe (7-10), Starting on Thu03/05/21 at 2330, 1006 (See Alternative - Provider: Monique Glez RN)2016 (Given - Provider: Marley Miramontes RN) 0030 (Given - Provider: Marley Miramontes RN)0622 (Given - Provider: Marley Miramontes RN)1231 (Given - Provider: Radha Simpson RN) oxyCODONE (ROXICODONE) immediate release tablet 5 mg(Linked Group 2) 5 mg, Oral, EVERY 4 HOURS PRN, Pain Moderate (4-6), Starting on Thu03/05/21 at 2330, 1006 (Given - Provider: Monique Glez RN)2016 (See Alternative - Provider: Marley Miramontes RN) 003 (See Alternative - Provider: Marley Miramontes RN)0622 (See Alternative - Provider: Marley Miramontes RN)1231 (See Alternative - Provider: Radha Simpson RN) oxytocin (PITOCIN) 10 unit bolus from the bag (COMPLETED) 500 mL (30 Units), Intravenous, Administer over 75 Minutes, PRN, Bleeding, Starting on Thu03/05/21 at 0817, For 1 dose, For immediate post- use ONLY after delivery of baby/ excessive bleeding/ uterine atony. Bag 1 of 2: Bolus for bag to infuse at 999 ml/hour for 15 minutes (15 units in 250ml). After initial bolus then decrease rate to 250cc/hr (additional 15 units) for 1 hour. Then discontinue, Multiphase Phase of Care 1009 (Given - Provider: Elisabet Henderson RN - Comment: hung by PAVING MACHINE OPERATOR)1124 (Due: Stopped - Provider: Elisabet Henderson RN) simethicone (MYLICON) chewable tablet 80 mg 80 mg, Oral, EVERY 6 HOURS PRN, Cramping, Flatulence, Starting on Thu03/05/21 at 1351, sodium chloride flush 0.9 % injection 10 mL 10 mL, Intravenous, PRN, Line Care, Starting on Thu03/05/21 at 1351, After every IV line use, Linked Groups Order Group 1: HYDROmorphone (DILAUDID) injection 0.25 mgJump to med 0.25 mg, Intravenous, EVERY 3 HOURS PRN, Pain Moderate (4-6), Starting on Thu03/05/21 at 2330
If oral and IV narcotics ordered, use oral first and only use IV if oral is ineffective or cannot take oral. Do Not give oral and IV within 1 hour of each other unless specifically ordered.
Or HYDROmorphone (DILAUDID) injection 0.5 mgJump to med 0.5 mg, Intravenous, EVERY 3 HOURS PRN, Pain Severe (7-10), Starting on Thu03/05/21 at 2330
If oral and IV narcotics ordered, use oral first and only use IV if oral is ineffective or cannot take oral. Do Not give oral and IV within 1 hour of each other unless specifically ordered.
Group 2: oxyCODONE (ROXICODONE) immediate release tablet 5 mgJump to med 5 mg, Oral, EVERY 4 HOURS PRN, Pain Moderate (4-6), Starting on Thu03/05/21 at 2330, Or oxyCODONE (ROXICODONE) immediate release tablet 10 mgJump to med 10 mg, Oral, EVERY 4 HOURS PRN, Pain Severe (7-10), Starting on Thu03/05/21 at 2330, Scheduled Medication Order 08/18/2023 08/19/2023 08/20/2023 acetaminophen (Tylenol) tablet 650 mg 650 mg, oral, Every 6 hours scheduled, First dose on Sandhya 08/20/23 at 1200, Phase II/On Unit, If ordered PRN for pain, nurse is permitted to administer this medication for higher pain scores based on patient preference? Yes 1200 (Due)1800 (Due) amphetamine-dextroamphetamine (Adderall) tablet 20 mg 20 mg, oral, Daily, First dose on Sandhya 08/20/23 at 1115, Phase II/On Unit 1115 (Due) aspirin EC tablet 81 mg 81 mg, oral, 2 times daily, First dose on Sandhya 08/20/23 at 1115, Phase II/On Unit, Do not crush, chew, or split. 1115 (Due)2100 (Due) ceFAZolin in dextrose (iso-os) (Ancef) IVPB 2 g 2 g, intravenous, Administer over 30 Minutes, Every 8 hours, First dose on Sandhya 08/20/23 at 1545, For 2 doses, Phase II/On Unit, Start 8 hours after pre-op dose given. premix bag, Dosing of this medication varies based on severity of illness. Does this patient have sepsis or concern for sepsis (probable or documented infection plus systemic manifestations of infection)? No, Suspected Indication (Select all that apply): Surgical Prophylaxis 1545 (Due - Provider : Tayla Morales RN)2345 (Due) lidocaine (Xylocaine) 10 mg/mL (1 %) injection 1 mg 1 mg (0.1 mL), subcutaneous, Once, On Sandhya 08/20/23 at 1000, For 1 dose, Recovery (only), To be used for IV insertion ONLY 1000 (Due) pantoprazole (ProtoNix) EC tablet 40 mg 40 mg, oral, Daily before breakfast, First dose on Thu08/21/23 at 0700, For 21 doses, Phase II/On Unit, Do not crush, chew, or split. polyethylene glycol (Glycolax, Miralax) packet 17 g 17 g, oral, Daily, First dose on Sandhya 08/20/23 at 1115, Phase II/On Unit, Bowel Regimen - for prevention of constipation. 1115 (Due) traMADol (Ultram) tablet 50 mg (COMPLETED) 50 mg, oral, Once, On Sandhya 08/20/23 at 1345, For 1 dose, If ordered PRN for pain, nurse is permitted to administer this medication for higher pain scores based on patient preference? Yes 1349 (Given - Provid er: Tayla Morales RN) Continuous Medication Order 08/18/2023 08/19/2023 08/20/2023 lactated Ringer's infusion 100 mL/hr, intravenous, Continuous, Starting on Sandhya 08/20/23 at 1000, Recovery (only) 1149 (New Bag - Prov ider: Tayla Morales RN) oxygen (O2) therapy 2 L/min, inhalation, Continuous, Starting on Sandhya 08/20/23 at 1115, Phase II/On Unit, Titrate supplemental oxygen to maintain oxygen saturation greater than or equal to 92%., Device: Nasal Cannula, Rate in liters per minute: 2 LPM, Keep O2 Sat Above: 92% 1115 (Due) sodium chloride 0.9% infusion 100 mL/hr, intravenous, Continuous, Starting on Sandhya 08/20/23 at 1115, For 24 hours, Phase II/On Unit 1115 (Due) PRN Medication Order 08/18/2023 08/19/2023 08/20/2023 acetaminophen (Tylenol) tablet 650 mg 650 mg, oral, Every 4 hours PRN, pain mild (1-3), first line, Starting on Sandhya 08/20/23 at 0954, Recovery (only), When able to take oral medications., If ordered PRN for pain, nurse is permitted to administer this medication for higher pain scores based on patient preference? Yes 1050 (Given - Provid er: Vicki Altamirano RN) cyclobenzaprine (Flexeril) tablet 10 mg 10 mg, oral, 3 times daily PRN, muscle spasms, Starting on Sandhya 08/20/23 at 1111, Phase II/On Unit, Indications: muscle spasm diphenhydrAMINE (BENADryl) injection 12.5 mg 12.5 mg, intravenous, Every 6 hours PRN, itching, Starting on Sandhya 08/20/23 at 1111, Phase II/On Unit HYDROmorphone (Dilaudid) injection 0.2 mg 0.2 mg, intravenous, Every 5 min PRN, pain moderate (4-6), first line, Starting on Sandhya 08/20/23 at 0954, Recovery (only), Max total of 4 mg regardless of dose. HYDROmorphone (Dilaudid) injection 0.4 mg 0.4 mg, intravenous, Every 5 min PRN, pain severe (7-10), first line, Starting on Sandhya 08/20/23 at 0954, Recovery (only), Max total of 4 mg regardless of dose. 1002 (Given - Provid er: Vicki Altamirano, DORITA)1023 (Given - Provider: Vicki Altamirano, DORITA) naloxone (Narcan) injection 0.2 mg 0.2 mg, intravenous, Every 5 min PRN, respiratory depression, Starting on Sandhya 08/20/23 at 1111, Phase II/On Unit, If respiratory rate is less than 8 breaths/minute or patient is difficult to arouse stop any narcotics and contact physician. Administer slow IV push. Repeat as ordered until patient's respiratory rate is greater than 12 breaths/minute. ondansetron (Zofran) injection 4 mg(Linked Group 1) 4 mg, intravenous, Every 8 hours PRN, nausea/vomiting, first line, Starting on Sandhya 08/20/23 at 1111, Phase II/On Unit, 1st Line. Give IV if patient is unable to take orally. If inadequate response within 60 minutes, proceed to next-line agent for same PRN reason or contact provider if no further options ordered. When administering via IV Push, administer over 3-5 minutes. ondansetron (Zofran) tablet 4 mg(Linked Group 1) 4 mg, oral, Every 8 hours PRN, nausea/vomiting, first line, Starting on Sandhya 08/20/23 at 1111, Phase II/On Unit, 1st Line. Use oral route first, if possible. If inadequate response within 60 minutes, proceed to next-line agent for same PRN reason or contact provider if no further options ordered. oxyCODONE (Roxicodone) immediate release tablet 10 mg 10 mg, oral, Every 4 hours PRN, pain severe (7-10), second line, Starting on Sandhya 08/20/23 at 0954, Recovery (only), When able to take oral medications., If ordered PRN for pain, nurse is permitted to administer this medication for higher pain scores based on patient preference? Yes oxyCODONE (Roxicodone) immediate release tablet 2.5 mg 2.5 mg, oral, Every 4 hours PRN, pain mild (1-3), first line, Starting on Sandhya 08/20/23 at 1111, Phase II/On Unit, If ordered PRN for pain, nurse is permitted to administer this medication for higher pain scores based on patient preference? Yes oxyCODONE (Roxicodone) immediate release tablet 5 mg 5 mg, oral, Every 4 hours PRN, pain moderate (4-6), second line, Starting on Sandhya 08/20/23 at 0954, Recovery (only), When able to take oral medications., If ordered PRN for pain, nurse is permitted to administer this medication for higher pain scores based on patient preference? Yes 1049 (Given - Provid er: Vicki Altamirano RN) oxyCODONE (Roxicodone) immediate release tablet 5 mg 5 mg, oral, Every 6 hours PRN, pain moderate (4-6), first line, Starting on Sandhya 08/20/23 at 1111, Phase II/On Unit, If ordered PRN for pain, nurse is permitted to administer this medication for higher pain scores based on patient preference? Yes oxygen (O2) therapy inhalation, Continuous PRN - O2/gases, other, Starting on Sandhya 08/20/23 at 0954, Recovery (only), Device: Nasal Cannula, Rate in liters per minute: Other, Custom Value: 1-6 LPM, Keep O2 Sat Above: 92% promethazine (Phenergan) 6.25 mg in sodium chloride 0.9% 50 mL IV 6.25 mg, intravenous, Administer over 15 Minutes, Once as needed, Nausea/vomiting first line, Starting on Sandhya 08/20/23 at 0954, For 1 dose, Recovery (only) sodium chloride 0.9 % irrigation solution (CANCELED) As needed, Starting on Sandhya 08/20/23 at 0821, Intraprocedure 0821 (Given - Provid er: Martha Paredes MD)0823 (Given - Provider: Martha Paredes MD - Comment: VIA PULSE EVAC) tobramycin (Nebcin) injection (CANCELED) As needed, Starting on Sandhya 08/20/23 at 0822, Intraprocedure 0822 (Given - Provid er: Martha Paredes MD - Comment: TOPICAL POWDER) vancomycin (Vancocin) vial for injection (CANCELED) As needed, Starting on Sandhya 08/20/23 at 0821, Intraprocedure 0821 (Given - Provid er: Martha Paredes MD - Comment: TOPICAL POWER) Linked Groups Order Group 1: ondansetron (Zofran) tablet 4 mgJump to med 4 mg, oral, Every 8 hours PRN, nausea/vomiting, first line, Starting on Sandhya 08/20/23 at 1111, Phase II/On Unit
1st Line. Use oral route first, if possible. If inadequate response within 60 minutes, proceed to next-line agent for same PRN reason or contact provider if no further options ordered.
Or ondansetron (Zofran) injection 4 mgJump to med 4 mg, intravenous, Every 8 hours PRN, nausea/vomiting, first line, Starting on Sandhya 08/20/23 at 1111, Phase II/On Unit
1st Line. Give IV if patient is unable to take orally. If inadequate response within 60 minutes, proceed to next-line agent for same PRN reason or contact provider if no further options ordered. When administering via IV Push, administer over 3-5 minutes.
INFORMATION SOURCE (unrecogn ized section and content) DATE CREATED AUTHOR AUTHOR'S ORGANIZ ATION 11/04/2021 [facility] DATE CREATED AUTHOR AUTHOR'S ORGANIZ ATION 04/26/2023 [facility] DATE CREATED AUTHOR AUTHOR'S ORGANIZ ATION 04/30/2023 [facility] DATE CREATED AUTHOR AUTHOR'S ORGANIZ ATION 06/16/2023 [facility] DATE CREATED AUTHOR AUTHOR'S ORGANIZ ATION 09/13/2023 [facility] DATE CREATED AUTHOR AUTHOR'S ORGANIZ ATION 09/15/2023 [facility] Reason for Visit (unrecogniz ed section and content) Referral ID Status Reason Start Date Expiration Date Visits Requested Visits Authorized [id number] Pending Review Perform Procedure 05/08/2023 11/04/2023 1 1 Specialty Diagnoses / Procedures Referred By Lala t Referred To Contact Radiology Diagnoses Other specified congenital deformities of hip Procedures CT pelvis wo IV contrast Pee Bailey MD [address] [place] [address] [place] [address] Referral ID Status Reason Start Date Expiration Date Visits Requested Visits Authorized [id number] Authorized Perform Procedure 04/29/2023 10/26/2023 1 1 Reason Comments Follow-up Referral ID Status Reason Start Date Expiration Date Visits Requested Visits Authorized [id number] Authorized Perform Procedure 05/08/2023 11/04/2023 1 1 Specialty Diagnoses / Procedures Referred By Contac t Referred To Contact Radiology Diagnoses Preoperative examination Procedures XR pelvis 1-2 views XR hip right with pelvis when performed 2 or 3 views Soni Rodriguez APRN-CNP [address] [place] [address] Referral ID Status Reason Start Date Expiration Date Visits Requested Visits Authorized [id number] Pending Review Perform Procedure 08/18/2023 08/17/2024 1 1 Specialty Diagnoses / Procedures Referred By Contac t Referred To Contact Diagnoses Congenital hip dysplasia Congenital hip dysplasia [Q65.89] Procedures TX ARTHRP ACETBLR/PROX FEM PROSTC AGRFT/ALGRFT Arthroplasty [place] [address] [address] [facility] Department of Orthopedics [place] [id number] [facility] [place] [address] [place] [address] Referral ID Status Reason Start Date Expiration Date Visits Re quested Visits Authorized [id number] 1 1 Specialty Diagnoses / Procedures Referred By Contac t Referred To Contact Radiology Diagnoses Congenital hip dysplasia Procedures XR hip right with pelvis when performed 2 or 3 views Adilene Gomez PA-C [address] [address] [facility] Department of Orthopedics [place] [id number] Referral ID Status Reason Start Date Expiration Date Visits Requested Visits Authorized [id number] Authorized Perform Procedure 09/01/2023 08/31/2024 1 1 Reason Comments Follow-up Reason Comments Sinus Problem sinus pressure and d rainage x 6 weeks Care Teams (unrecognized sec tion and content) Cumulative Effects Analyst Relationship Specialty Start Date End Date Lucia Camacho MD [address] [place] [address] [place] [address] PCP - General Internal Medicine 06/10/23 Cumulative Effects Analyst Relationship Specialty Start Date End Date Lucia Camacho MD [address] [facility] Internal [facility] [place] [address] PCP - General Internal Medicine 06/10/23 Cumulative Effects Analyst Relationship Specialty Start Date End Date Lucia Camacho MD [address] [facility] Internal [facility] [place] [address] PCP - General Internal Medicine 06/10/23 Cumulative Effects Analyst Relationship Specialty Start Date End Date Lucia Camacho MD [address] [facility] Internal [facility] [place] [address] PCP - General Internal Medicine 06/10/23 Cumulative Effects Analyst Relationship Specialty Start Date End Date Lucia Camacho MD [address] [facility] Internal [facility] [place] [address] PCP - General Internal Medicine 06/10/23 Cumulative Effects Analyst Relationship Specialty Start Date End Date Lucia Camacho MD [address] [facility] Internal [facility] [place] [address] PCP - General Internal Medicine 06/10/23 Cumulative Effects Analyst Relationship Specialty Start Date End Date Lucia Camacho MD [address] [facility] Internal [facility] [place] [address] PCP - General Internal Medicine 06/10/23 Cumulative Effects Analyst Relationship Specialty Start Date End Date Lucia Camacho MD [address] [facility] Internal [facility] [place] [address] PCP - General Internal Medicine 06/10/23 Source Comments (unrecognize d section and content) In the event this informatio n is protected by the Federal Confidentiality of Alcohol and Drug Abuse Patient Records regulations: The Federal rules restrict any use of the information to criminally investigate or prosecute any alcohol or drug abuse patient.[facility] FOR RECORDS PERTAINING TO PATIENTS WHO ARE OR HAVE BEEN ENROLLED IN A CHEMICAL DEPENDENCY/SUBSTANCEABUSE PROGRAM, SOME INFORMATION MAY BE OMITTED. This clinical summary was aggregated from multiple sources. Caution should be exercised in using it in the provision of clinical care. This summary normalizes information from multiple sources, and as a consequence, information in this document may materially change the coding, format and clinical context of patient data. In addition, data may be omitted in some cases. CLINICAL DECISIONS SHOULD BE BASED ON THE PRIMARY CLINICAL RECORDS. Delivered [facility]. provides no warranty or guarantee of the accuracy or completeness of information in this document.
[2023-10-16 12:18] LABS: Amphetamine Urine VISTA NEGATIVE (<1000 ng/mL); Barbiturate Urine VISTA NEGATIVE (< 200 ng/mL); Benzodiazepine Urine VISTA NEGATIVE (< 200 ng/mL); Cocaine Urine VISTA NEGATIVE (< 300 ng/mL); Ecstacy Urine VISTA NEGATIVE (< 500 ng/mL); Methadone Urine VISTA NEGATIVE (< 300 ng/mL); PCP Urine VISTA NEGATIVE (< 25 ng/mL); THC Urine VISTA NEGATIVE (< 50 ng/mL); Vista UDS pH Range 5
== END | disposition home or self-care (01) ==
LOC: BIMLAB 11:10
PROVIDERS: PCP Internal Medicine; Visit Provider Internal Medicine
DX: F90.9 Attention-deficit hyperactivity disorder, unspecified type (principal)
CPT/HCPCS: 80307

== ENCOUNTER → 2024-01-22 | Outpatient (CLI) | payer MEDICAID, SELFPAY ==
[2024-01-23 01:02] LABS: Amphetamine Urine VISTA POSITIVE (<1000 ng/mL); Barbiturate Urine VISTA NEGATIVE (< 200 ng/mL); Benzodiazepine Urine VISTA NEGATIVE (< 200 ng/mL); Cocaine Urine VISTA NEGATIVE (< 300 ng/mL); Ecstacy Urine VISTA NEGATIVE (< 500 ng/mL); Methadone Urine VISTA NEGATIVE (< 300 ng/mL); PCP Urine VISTA NEGATIVE (< 25 ng/mL); THC Urine VISTA NEGATIVE (< 50 ng/mL); Vista UDS pH Range 4
== END | disposition home or self-care (01) ==
LOC: LABSPEC 15:37
PROVIDERS: PCP Internal Medicine; Visit Provider Internal Medicine
DX: F90.9 Attention-deficit hyperactivity disorder, unspecified type (principal)
CPT/HCPCS: 80307

== ENCOUNTER → 2024-08-02 | Outpatient (CLI) | payer MEDICAID, SELFPAY ==
[2024-08-02 12:28] LABS: Absolute Lymphocyte Count 1.85 X10^3/uL (0.83-4.51); Absolute Neutrophil Count 3.7 X10^3/uL (2.0-7.7); Basophil# 0.03 X10^3/uL; Basophil% 0.5 % (0-1); Eosinophil# 0.02 X10^3/uL; Eosinophils% 0.3 % (0-5); Hematocrit 39.9 % (37-47); Hemoglobin 13.5 g/dL (12.0-15.0); Lymphocyte # 1.85 X10^3/ul (0.83-4.51); Lymphocyte % 30.3 % (19-41); Mean Corp Hgb Conc 33.8 g/dL (32-36); Mean Corpuscular Hgb 28.7 pg (27.0-32.0); Mean Corpuscular Volume 84.7 fL (81-99); Mean Platelet Vol. 10.2 fl (6.2-12.0); Monocyte# 0.49 X10^3/uL; NRBC Flagged by Analyzer 0 % (0-5); Neutrophil % 60.6 % (47-70); Platelet Count 201 K/mm3 (150-450); RBC Distribution Width CV 11.9 % (11.6-14.6); RBC Distribution Width SD 36.6 fl (35.1-43.9); Red Blood Count 4.71 M/mm3 (4.2-5.4); White Blood Count 6.1 K/mm3 (4.4-11.0)
[2024-08-02 12:57] LABS: Vitamin B12 719 pg/mL (211-911)
[2024-08-02 13:03] LABS: ALB/GLOB Ratio 1.2 RATIO (0.9-2.4); AST(SGOT) 9 U/L (15-37); Alanine Aminotransfer ALT/SGPT 21 U/L (13-56); Alkaline Phosphatase 57 U/L (45-117); Anion Gap 4 (5-15); BUN 12 mg/dL (7-18); BUN/Creat Ratio 14.6 RATIO (10-20); Chloride 108 mmol/L (98-107); Creatinine, Serum 0.82 mg/dL (0.55-1.02); EST Glomerular Filtration Rate 85 mL/min (>60); Est Glom Filt Rate - Afr Amer 103 mL/min (>60); Globulin 3.4 g/dL (2.2-4.2); Glucose 90 mg/dL (74-106); Potassium 4.3 mmol/L (3.5-5.1); Protein, Total 7.4 g/dL (6.4-8.2); Sodium Level 140 mmol/L (136-145); T4 Free Direct 1.12 ng/dL (0.76-1.46)
== END | disposition home or self-care (01) ==
LOC: LAB 12:12
PROVIDERS: PCP Internal Medicine; Referring Provider Internal Medicine; Visit Provider Internal Medicine
DX: F41.9 Anxiety disorder, unspecified (principal); F32.A Depression, unspecified
CPT/HCPCS: 36415; 80053; 82607; 84439; 84443; 85025